=== PATIENT | male | born 1940 | race Caucasian/White ===

== ENCOUNTER 2016-10-13 10:54 | Inpatient (IN) | payer OTHER ==
[~2016-10-13] VITALS: Ht 172.7 cm; Wt 106.2 kg
[2016-10-13] MEDS ORDERED: CLOP1TAB15 PO (11:22)
[2016-10-13] MEDS ORDERED: OXGN (11:22)
[2016-10-13] MEDS ORDERED: UMEC1AER PO (11:22)
[2016-10-13] MEDS ORDERED: AMLO2.5T PO (11:22)
[2016-10-13] MEDS ORDERED: INS/25 PO (11:22)
[2016-10-13] MEDS ORDERED: ASPI81TA28 PO (11:22)
[2016-10-13] MEDS ORDERED: IPRA1AER2 INH (11:22)
[2016-10-13] MEDS ORDERED: ISOSPOW2 PO (11:22)
[2016-10-13] MEDS ORDERED: NTRGSL/4 UT (11:22)
[2016-10-13] MEDS ORDERED: FLUT0.15 (11:22)
[2016-10-13] MEDS ORDERED: METO25TA56 PO (11:22)
[2016-10-13] MEDS ORDERED: ASCA500 PO (11:22)
[2016-10-13] MEDS ORDERED: PANT40TA PO (11:22)
[2016-10-13] MEDS ORDERED: FRS/40 PO (11:22)
[2016-10-13] MEDS ORDERED: GLIM1TAB2 PO (11:22)
[2016-10-13] MEDS ORDERED: IPRASOL4 INH (11:22)
[2016-10-13] MEDS ORDERED: ONDANSETRON INJ 2 MG/ML 2 ML VIAL IV STA (11:44)
[2016-10-13] MEDS ORDERED: SODIUM CHLORIDE 0.9% 1000ML 1,000 ML IV STA (11:44)
[2016-10-13] MEDS ORDERED: MoRPHine SULFATE 4 MG/ML 1 ML CARP\\VIAL IV PRN (11:45)
--- NOTE | 2016-10-13 11:57 | EMERGENCY ROOM VISIT NOTE ---
History Report prepared by Rimma: Ivan Álvarez Under the Supervision of: Dr. Ayaan Finley D.O. First contact with patient: 11:38 Chief Complaint: ABDOMINAL PAIN Stated Complaint: STOMACH/CHEST PAINS Nursing Triage Summary: Patient states has been vomitting all night and has abdominal pain. states patient has had abdominal pain for the past month. Patient has hx of colon ca with resection in 2013. Patient states was having issues with constipation, took miralax and dulcolax with success. Patient states has not had BM in 2 days. History of Present Illness The patient is a 76 year old male who presents to the Emergency Room with complaints of persistent abdominal pain that started around a month ago. Last night, he had multiple episodes of vomiting and was nauseous all night. He notes that his abdomen has been feeling bigger than usual. Per the patient's , the patient has also not had an appetite for a couple days. The patient went to his primary care physician's office last week, and had an x-ray and blood tests done. The patient was deemed to perhaps have been constipated, so he was given Miralax and Dulcolax, which has been successful. He was supposed to see a pulp press tender today, but the patient could not wait until the appointment because the pain was so bad. He denies any fevers, chills, chest pain, or groin swelling. He has a history of colon cancer, colon resection, COPD , open heart surgery twice, and stent placement. He has not had any chemotherapy or radiation. He does not drink alcohol or smoke. He still has his gallbladder and appendix. Source of History: patient Onset: A month ago Position: abdomen Timing: other (persistent) Associated Symptoms: + nausea, + vomiting, No chest pain, No chills, No fevers Note: Associated symptoms: Denies groin swelling. Review of Systems See HPI for pertinent positives & negatives. A total of 10 systems reviewed and were otherwise negative. Past Medical & Surgical Medical Problems: (1) CAD (coronary artery disease) (2) Colon cancer (3) Colon cancer (4) COPD (chronic obstructive pulmonary disease) (5) COPD (chronic obstructive pulmonary disease) (6) GERD (gastroesophageal reflux disease) (7) Heart disease (8) HTN (hypertension) Surgical Problems: (1) History of colon resection (2) History of esophagogastroduodenoscopy (EGD) (3) History of partial colectomy (4) S/P CABG x 3 (5) Stented coronary artery Family History Family history omitted secondary to advanced age. Social History Smoking Status: Never Smoker Alcohol Use: none Marital Status: Occupation Status: retired Current/Historical Medications Scheduled Amlodipine (Norvasc), 2.5 MG PO DAILY Ascorbic Acid (Vitamin C), 500 MG PO DAILY Aspirin (Aspirin Ec), 81 MG PO DAILY Clopidogrel (Plavix), 75 MG PO DAILY Eplerenone (Inspra), 25 MG PO DAILY Fluticasone Propionate (Nasal) (Flonase Allergy Relief), 2 SPRAYS NA HS Furosemide (Lasix), 40 MG PO BID Glimepiride (Glimepiride), 1 MG PO DAILY Ipratropium-Albuterol (Combivent Respimat), 1 PUFFS INH QID Isosorbide Mononitrate (Imdur Ext Rel), 1.5 TAB PO DAILY Metoprolol Tartrate (Lopressor) (Lopressor), 25 MG PO BID Nitroglycerin (Nitrostat), 0.4 MG UT PRN Oxygen (Oxygen), 2 LITERS NA PRN Pantoprazole (Protonix), 40 MG PO DAILY Umeclidinium-Vilanterol (Anoro Ellipta 62.5-25 Mcg/INH), 1 PUFF PO DAILY Scheduled PRN Ipratropium-Albuterol (Duoneb), 1 TREATMENT INH Q6 PRN for Cough Allergies Coded Allergies: Atorvastatin (Unverified Allergy, Unknown, UNKNOWN, 10/13/16) Levofloxacin (Unverified Allergy, Unknown, UNKNOWN, 10/13/16) Simvastatin (Unverified Allergy, Unknown, UNKNOWN, 10/13/16) Physical Exam Vital Signs Date Time Temp Pulse Resp B/P Pulse Ox O2 Delivery O2 Flow Rate FiO2 10/13/16 12:52 70 10/13/16 12:50 71 22 140/67 90 Nasal Cannula 2.0 10/13/16 10:57 36.4 75 18 130/78 90 Room Air Physical Exam GENERAL: Patient is awake, alert, somewhat anxious appearing and uncomfortable. EYES: The conjunctivae are clear. The pupils are round and reactive. EARS, NOSE, MOUTH AND THROAT: The nose is without any evidence of any deformity. Mucous membranes are dry. NECK: The neck is nontender and supple. RESPIRATORY: Lung sounds are diminished throughout with scattered rhonchi. No tachypnea or conversation dyspnea noted. CARDIOVASCULAR: Regular rate and rhythm noted there no murmurs rubs or gallops normal S1 normal S2 GASTROINTESTINAL: Abdomen is moderately distended and diffusely tender. Significant tenderness in left upper and left lower quadrant. MUSCULOSKELETAL/EXTREMITIES: There is no evidence of gross deformity full range of motion is noted in the hips and shoulders SKIN: Pedal edema noted bilaterally. NEUROLOGIC: Patient is awake alert and oriented x3. Medical Decision & Procedures ER Provider Diagnostic Interpretation: Radiology results as stated below per my review and radiologist interpretation: CHEST ONE VIEW PORTABLE CLINICAL HISTORY: Pain radiating to the abdomen COMPARISON STUDY: No previous studies for comparison. FINDINGS: There are postsurgical changes of midline sternotomy. The heart is mildly enlarged. There is mild bibasilar atelectasis. There is no lobar consolidation. There are no pleural effusions.[ IMPRESSION: Mild cardiomegaly. No evidence of lobar consolidation. No evidence of free intraperitoneal air. Electronically signed by: Jose Guadalupe Sahffer M.D. 10/13/2016 12:20 PM Dictated Date/Time: 10/13/2016 12:[address] SCAN OF THE ABDOMEN AND PELVIS WITHOUT CONTRAST CLINICAL HISTORY: Mid abdominal pain and vomiting. COMPARISON STUDY: No previous studies for comparison. TECHNIQUE: CT scan of the abdomen and pelvis was performed from the lung bases to the proximal femurs. Images are reviewed in the axial, sagittal, and coronal planes. IV contrast was not administered for this examination. CT DOSE: 1055.29 mGy.cm FINDINGS: Lower chest: There is respiratory motion artifact. There are mild basilar atelectatic changes. Liver: The unenhanced liver is normal in size, contour, and attenuation. There is no intrahepatic biliary ductal dilatation. Gallbladder: There are multiple gallbladder calculi present. Spleen: Normal in size and attenuation. Pancreas: Unremarkable. Adrenal glands: There is a 3 cm right adrenal myelolipoma Kidneys: The unenhanced kidneys are normal in size without hydronephrosis. There is no contour deforming renal mass lesion. No renal calculi are identified. Bowel: There are postsurgical changes present within the sigmoid. There is marked gastric distention. There is no small bowel dilatation. The findings are suggestive of a gastric outlet obstruction. A duodenal/distal antral lesion cannot be excluded. GI consultation is recommended. There is no evidence of acute diverticulitis. There is no evidence of acute appendicitis. Peritoneum: There is scant ascites. There is no free air. There is nodular infiltration of the omentum with scattered small peritoneal nodules. Carcinomatosis is the diagnosis of exclusion. An inflammatory peritonitis could appear similar. Vasculature: There is a 3.3 cm infrarenal abdominal aortic aneurysm. Adenopathy: None. Pelvic viscera: The bladder, and pelvic viscera are unremarkable. Skeletal structures: No lytic or blastic lesions are visualized. There is a grade 1 spondylolisthesis of L5 on S1. IMPRESSION: 1. Nodular infiltration of the omentum with scattered peritoneal nodules. Abdominal carcinomatosis is a diagnosis of exclusion. An inflammatory peritonitis while in the differential is statistically less likely. 2. Scant ascites 3. Marked gastric dilatation. The findings are indicative of a gastric outlet obstruction. GI consultation is recommended. 4. Cholelithiasis. 5. 3 cm right adrenal myelolipoma 6. 3.3 cm infrarenal abdominal aortic aneurysm Electronically signed by: Jose Guadalupe Shaffer M.D. 10/13/2016 1:50 PM Dictated Date/Time: 10/13/2016 1:38 PM Laboratory Results Test 10/13/16 11:15 10/13/16 12:08 10/13/16 12:14 Immature Granulocyte % (Auto) 0.3 % White Blood Count 13.04 K/uL (4.8-10.8) Red Blood Count 5.50 M/uL (4.7-6.1) Hemoglobin 16.1 g/dL (14.0-18.0) Hematocrit 49.0 % (42-52) Mean Corpuscular Volume 89.1 fL (80-100) Mean Corpuscular Hemoglobin 29.3 pg (25-34) Mean Corpuscular Hemoglobin Concent 32.9 g/dl (32-36) Platelet Count 308 K/uL (130-400) Mean Platelet Volume 10.5 fL (7.4-10.4) Neutrophils (%) (Auto) 76.4 % Lymphocytes (%) (Auto) 14.0 % Monocytes (%) (Auto) 8.5 % Eosinophils (%) (Auto) 0.5 % Basophils (%) (Auto) 0.3 % Neutrophils # (Auto) 9.96 K/uL (1.4-6.5) Lymphocytes # (Auto) 1.83 K/uL (1.2-3.4) Monocytes # (Auto) 1.11 K/uL (0.11-0.59) Eosinophils # (Auto) 0.06 K/uL (0-0.5) Basophils # (Auto) 0.04 K/uL (0-0.2) Immature Granulocyte # (Auto) 0.04 K/uL (0.00-0.02) Prothrombin Time 11.5 SECONDS (9.0-12.0) Prothromb Time International Ratio 1.1 (0.9-1.1) Activated Partial Thromboplast Time 25.7 SECONDS (21.0-31.0) Partial Thromboplastin Ratio 1.0 Total Bilirubin 0.8 mg/dl (0.2-1) Direct Bilirubin 0.2 mg/dl (0-0.2) Aspartate Amino Transf (AST/SGOT) 12 U/L (15-37) Alanine Aminotransferase (ALT/SGPT) 14 U/L (12-78) Alkaline Phosphatase 82 U/L (45-117) Total Creatine Kinase 67 U/L (39-308) Creatine Kinase MB < 0.5 ng/ml (0.5-3.6) Creatine Kinase MB Ratio (0-3.0) Troponin I < 0.015 ng/ml (0-0.045) Total Protein 7.7 gm/dl (6.4-8.2) Albumin 3.9 gm/dl (3.4-5.0) Lipase 250 U/L (73-393) Bedside Hemoglobin 16.3 g/dl (14.0-18.0) Bedside Hematocrit 48 % (42-52) Bedside Sodium 139 mEq/L (135-144) Bedside Potassium 3.3 mEq/L (3.3-5.0) Bedside Chloride 85 mEq/L (101-112) Bedside Total CO2 > 40 mEq/l (24-31) Bedside Blood Urea Nitrogen 25 mg/dl (7-18) Bedside Creatinine 1.4 mg/dl (0.6-1.3) Bedside Glucose (other) 160 mg/dl (70-99) Bedside Ionized Calcium (Delmar) 1.03 mmol/l (1.12-1.32) Bedside Lactic Acid Venous 1.61 mmol/L (0.90-1.70) Laboratory results per my review. Medications Administered Medications (Trade) Dose Ordered Sig/Kristine Route Start Time Stop Time Status Last Admin Dose Admin Sodium Chloride (Nss 1000ml) 1,000 ml @ 999 mls/hr Q1H1M STAT IV 10/13/16 11:44 10/13/16 12:44 DC 10/13/16 12:44 999 MLS/HR Ondansetron HCl (Zofran Inj) 4 mg NOW STAT IV 10/13/16 11:44 10/13/16 11:46 DC 10/13/16 12:44 4 MG Morphine Sulfate 4 mg 4 mg Q15M PRN IV 10/13/16 11:45 10/13/16 17:06 DC 10/13/16 12:45 4 MG Pantoprazole Sodium/Syringe (Protonix Inj/ Syringe) 10 ml @ 5 mls/min NOW ONCE IV 10/13/16 13:45 10/13/16 13:46 DC 10/13/16 13:56 5 MLS/MIN Famotidine (Pepcid 20mg/100 ml) 20 mg ONE STAT IV 10/13/16 13:40 10/13/16 13:41 DC 10/13/16 13:55 20 MG ECG Indication: abdominal pain Rate (beats per minute): 75 Rhythm: normal sinus Findings: RBBB, no ectopy Comparison ECG Date: no prior available ED Course 1141: The patient was evaluated in room B9. A complete history and physical examination were performed. 1144: Ordered Zofran Inj 4 mg IV, NSS 1000 ml @ 999 mls/hr IV. 1145: Ordered Morphine Sulfate Inj 4 mg IV PRN. 1340: Ordered Pepcid 20mg/100 ml 20 mg IV. 1345: Ordered Pantoprazole Sodium 40 mg/Syrine 10 ml @ 5 mls/min IV. 1406: Upon reevaluation, the patient is resting comfortably. I discussed results and treatment plan with him. He verbalizes agreement and understanding. He will be evaluated for further treatment. 1411: I discussed the patient with Mary Nguyen - she will evaluate the patient for further treatment. 1425: I discussed the patient with Dr. Marissa Nguyen Gastroenterology. Medical Decision Differential diagnosis: Etiologies such as appendicitis, diverticulitis, PUD, biliary pathology, UTI, pancreatitis, obstruction, mesenteric ischemia, aortic pathology, infections, inflammatory bowel disease, renal colic, as well as others were entertained. Nursing notes reviewed. The patient is a 76-year-old male who presented to the emergency department for an evaluation of abdominal pain. The patient has been noticing slowly worsening abdominal pain over the last 3-4 weeks. His pain became much worse over the last few days. He does have a scheduled appointment with a pulp press tender today however his pain became severe and he presented to the emergency department today. His abdominal exam was consistent with significant distention as well as upper abdominal tenderness. He had nausea and vomiting symptoms. He was treated with IV fluids IV pain medicine and IV antiemetics. His CAT scan revealed significant gastric outlet obstruction. The patient had an NG tube placed which did significantly improve his symptoms. I discussed the patient's laboratory and radiographic studies with him. I also discussed his case with the on-call pulp press tender as well as the on-call [facility] hospitalist group. They've agreed to evaluate the patient in the emergency department for further management and disposition. Consults Time Called: 1409 Consulting Physician: Mary Nguyen Returned Call: [phone] I discussed the patient with Mary Nguyen - she will evaluate the patient for further treatment. Additional Consults: Time Called: 1410 Consulted Physician: Dr. Marissa Nguyen Gastroenterology Returned Call: [phone] Additional Comments: I discussed the patient with Dr. Marissa Nguyen Gastroenterology. Impression Primary Impression: Gastric outlet obstruction Additional Impressions: Nausea & vomiting Acute kidney injury Dehydration Scribe Attestation The scribe's documentation has been prepared under my direction and personally reviewed by me in its entirety. I confirm that the note above accurately reflects all work, treatment, procedures, and medical decision making performed by me. Departure Information Dispostion Being Evaluated By Hospitalist Referrals No Doctor, Assigned (PCP) Patient Instructions My [facility] Problem Qualifiers Additional Impressions: Nausea & vomiting Vomiting type: unspecified Vomiting Intractability: unspecified Qualified Codes: R11.2 - Nausea with vomiting, unspecified
[2016-10-13 12:10] LABS: INR 1.1 (0.9-1.1); PROTHROMBIN TIME (PATIENT) 11.5 SECONDS (9.0-12.0)
[2016-10-13 12:13] LABS: BASO % 0.3 %; BASO ABS # 0.04 K/uL (0-0.2); COMPLETE YES; EOS % 0.5 %; IG% 0.3 %; LYMPH ABS # 1.83 K/uL (1.2-3.4); MEAN CELL VOLUME 89.1 fL (80-100); MEAN CORPUSCULAR HEMOGLOBIN 29.3 pg (25-34); MEAN CORPUSCULAR HGB CONC 32.9 g/dl (32-36); MEAN PLATELET VOLUME 10.5 fL (7.4-10.4); MONO % 8.5 %; NEUT % 76.4 %; PLATELET COUNT 308 K/uL (130-400); WHITE BLOOD COUNT 13.04 K/uL (4.8-10.8)
--- NOTE | 2016-10-13 12:21 | DIAGNOSTIC IMAGING REPORT ---
CHEST ONE VIEW PORTABLE CLINICAL HISTORY: Pain radiating to the abdomen COMPARISON STUDY: No previous studies for comparison. FINDINGS: There are postsurgical changes of midline sternotomy. The heart is mildly enlarged. There is mild bibasilar atelectasis. There is no lobar consolidation. There are no pleural effusions.[ IMPRESSION: Mild cardiomegaly. No evidence of lobar consolidation. No evidence of free intraperitoneal air. Electronically signed by: Jose Guadalupe Shaffer M.D. 10/13/2016 12:20 PM Dictated Date/Time: 10/13/2016 12:19 PM
[2016-10-13 12:23] LABS: ALT/SGPT 14 U/L (12-78); AST/SGOT 12 U/L (15-37); BLOOD UREA NITROGEN 24 mg/dl (7-18); BUN/CREATININE RATIO 13.2 (10-20); CALCIUM 9.5 mg/dl (8.5-10.1); CARBON DIOXIDE 44 mmol/L (21-32); CHLORIDE 90 mmol/L (98-107); GLUCOSE 153 mg/dl (70-99); POTASSIUM 3.4 mmol/L (3.5-5.1); SODIUM 141 mmol/L (136-145)
[2016-10-13 12:26] LABS: ISTAT CARBON DIOXIDE > 40 mEq/l (24-31); ISTAT CHLORIDE 85 mEq/L (101-112); ISTAT CREATININE 1.4 mg/dl (0.6-1.3); ISTAT HEMATOCRIT 48 % (42-52); ISTAT HEMOGLOBIN 16.3 g/dl (14.0-18.0); ISTAT IONIZED CALCIUM 1.03 mmol/l (1.12-1.32); ISTAT SODIUM 139 mEq/L (135-144)
[2016-10-13 12:37] LABS: ALKALINE PHOSPHATASE 82 U/L (45-117)
[2016-10-13] MEDS ORDERED: FAMOTIDINE 20MG/102 ML D5W IV STA (13:40)
[2016-10-13] MEDS ORDERED: PANTOprazole INJ 40 MG in SYRINGE 0 ML IV ONE (13:45)
--- NOTE | 2016-10-13 13:51 | DIAGNOSTIC IMAGING REPORT ---
CT SCAN OF THE ABDOMEN AND PELVIS WITHOUT CONTRAST CLINICAL HISTORY: Mid abdominal pain and vomiting. COMPARISON STUDY: No previous studies for comparison. TECHNIQUE: CT scan of the abdomen and pelvis was performed from the lung bases to the proximal femurs. Images are reviewed in the axial, sagittal, and coronal planes. IV contrast was not administered for this examination. CT DOSE: 1055.29 mGy.cm FINDINGS: Lower chest: There is respiratory motion artifact. There are mild basilar atelectatic changes. Liver: The unenhanced liver is normal in size, contour, and attenuation. There is no intrahepatic biliary ductal dilatation. Gallbladder: There are multiple gallbladder calculi present. Spleen: Normal in size and attenuation. Pancreas: Unremarkable. Adrenal glands: There is a 3 cm right adrenal myelolipoma Kidneys: The unenhanced kidneys are normal in size without hydronephrosis. There is no contour deforming renal mass lesion. No renal calculi are identified. Bowel: There are postsurgical changes present within the sigmoid. There is marked gastric distention. There is no small bowel dilatation. The findings are suggestive of a gastric outlet obstruction. A duodenal/distal antral lesion cannot be excluded. GI consultation is recommended. There is no evidence of acute diverticulitis. There is no evidence of acute appendicitis. Peritoneum: There is scant ascites. There is no free air. There is nodular infiltration of the omentum with scattered small peritoneal nodules. Carcinomatosis is the diagnosis of exclusion. An inflammatory peritonitis could appear similar. Vasculature: There is a 3.3 cm infrarenal abdominal aortic aneurysm. Adenopathy: None. Pelvic viscera: The bladder, and pelvic viscera are unremarkable. Skeletal structures: No lytic or blastic lesions are visualized. There is a grade 1 spondylolisthesis of L5 on S1. IMPRESSION: 1. Nodular infiltration of the omentum with scattered peritoneal nodules. Abdominal carcinomatosis is a diagnosis of exclusion. An inflammatory peritonitis while in the differential is statistically less likely. 2. Scant ascites 3. Marked gastric dilatation. The findings are indicative of a gastric outlet obstruction. GI consultation is recommended. 4. Cholelithiasis. 5. 3 cm right adrenal myelolipoma 6. 3.3 cm infrarenal abdominal aortic aneurysm Electronically signed by: Jose Guadalupe Shaffer M.D. 10/13/2016 1:50 PM Dictated Date/Time: 10/13/2016 1:38 PM
[2016-10-13] MEDS ORDERED: ISOS60TA2 PO (14:55)
[2016-10-13] MEDS ORDERED: NITROGLYCERIN 0.4 MG SL PER TAB CHARGE UT SCH (15:00)
[2016-10-13] MEDS ORDERED: ACETAMINOPHEN 325 MG TAB PO PRN (15:00)
--- NOTE | 2016-10-13 15:58 | History and Physical ---
History & Physical Date & Time of Service: Oct 13, 2016 at 15:58 Chief Complaint: Stomach/Chest Pains Primary Care Physician: Mildred Quiroga M.D. History of Present Illness Source: patient, partner, clinic records, hospital records Patient seen and examined. 76 year old male with PMHx of CAD s/p CABG, Stents, COPD, PAF, CKd stage 3, GERD, h/o Colon CA and H/o CVA presents to the ED complaining of stomach pain x 1 month. Patient reports for about a month he has had generalized sharp 10/10 abdominal pain. He states sometimes has pain radiating into his chest and reports a known history of chronic postprandial angina. He saw his PCP last week and KUB showed stool in the colon. Patient took laxatives which initially helped with his symptoms but he states over the last 2-3 days he started to have vomiting as well and his abdomen became distended. He reports his last BM was two days ago. He denies fevers, chills, URI symptoms, chest pain out of the ordinary, SOB, hematemesis, diarrhea, dysuria, calf pain and edema. In the ED VS were stable, he had mild leukocytosis , crea was bumped. CT A/P showed nodular infiltrates in the omentum and possible gastric outlet obstruction. NG tube was placed and drained >1L of brown gastric contents. GI was consulted and will likely scope patient tomorrow. He will be admitted for further workup and treatment. Past Medical/Surgical History Medical Problems: (1) CAD (coronary artery disease) Status: Chronic (2) Colon cancer Status: Resolved (3) Colon cancer Status: Chronic (4) COPD (chronic obstructive pulmonary disease) Status: Chronic (5) COPD (chronic obstructive pulmonary disease) Status: Chronic (6) GERD (gastroesophageal reflux disease) Status: Chronic (7) Heart disease Status: Resolved (8) HTN (hypertension) Status: Chronic Surgical Problems: (1) History of colon resection Status: Resolved (2) History of esophagogastroduodenoscopy (EGD) Status: Chronic (3) History of partial colectomy Status: Chronic (4) S/P CABG x 3 Status: Chronic (5) Stented coronary artery Status: Chronic Family History FH: heart disease Hypertension Social History Smoking Status: Never Smoker Alcohol Use: none Marital Status: Housing status: lives alone Occupational Status: retired Allergies Coded Allergies: Atorvastatin (Unverified Allergy, Unknown, UNKNOWN, 10/13/16) Levofloxacin (Unverified Allergy, Unknown, UNKNOWN, 10/13/16) Simvastatin (Unverified Allergy, Unknown, UNKNOWN, 10/13/16) Home Medications Scheduled Amlodipine (Norvasc), 2.5 MG PO DAILY Ascorbic Acid (Vitamin C), 500 MG PO DAILY Aspirin (Aspirin Ec), 81 MG PO DAILY Clopidogrel (Plavix), 75 MG PO DAILY Eplerenone (Inspra), 25 MG PO DAILY Fluticasone Propionate (Nasal) (Flonase Allergy Relief), 2 SPRAYS NA HS Furosemide (Lasix), 40 MG PO BID Glimepiride (Glimepiride), 1 MG PO DAILY Ipratropium-Albuterol (Combivent Respimat), 1 PUFFS INH QID Isosorbide Mononitrate (Imdur Ext Rel), 1.5 TAB PO DAILY Metoprolol Tartrate (Lopressor) (Lopressor), 25 MG PO BID Nitroglycerin (Nitrostat), 0.4 MG UT PRN Oxygen (Oxygen), 2 LITERS NA PRN Pantoprazole (Protonix), 40 MG PO DAILY Umeclidinium-Vilanterol (Anoro Ellipta 62.5-25 Mcg/INH), 1 PUFF PO DAILY Scheduled PRN Ipratropium-Albuterol (Duoneb), 1 TREATMENT INH Q6 PRN for Cough Review of Systems See above for pertinent positives & negatives. A total of 10 systems reviewed and were otherwise negative. Physical Exam Vital Signs Date Time Temp Pulse Resp B/P Pulse Ox O2 Delivery O2 Flow Rate FiO2 10/13/16 15:43 67 18 117/67 92 10/13/16 12:52 70 10/13/16 12:50 71 22 140/67 90 Nasal Cannula 2.0 10/13/16 10:57 36.4 75 18 130/78 90 Room Air General Appearance: + pertinent finding (Pleasant Wd/WN 76 year old male lying in bed in NAD with friend at bedside ) Head: normocephalic, atraumatic Eyes: PERRL, EOMI, sclerae normal ENT: pharynx normal, + pertinent finding (ng tube in place, blood from nares ) Neck: supple, thyroid normal Respiratory/Chest: chest non-tender, lungs clear (trace wheezes), normal breath sounds, no respiratory distress, no accessory muscle use Cardiovascular: regular rate, rhythm, no edema, no gallop, no JVD, no murmur, normal peripheral pulses Abdomen/GI: + pertinent finding (hypoactive BS, distended, mild tenderness ) Back: normal inspection, no muscle spasm Extremities/Musculoskelatal: no calf tenderness, normal capillary refill, no pedal edema Neurologic/Psych: alert, oriented x 3, + pertinent finding (no focal deficits noted on gross exam ) Skin: normal color, warm/dry, no rash Lymphatic: no adenopathy Diagnostics Laboratory Results Results Past 24 Hours Test 10/13/16 11:15 10/13/16 12:08 10/13/16 12:14 Range/Units White Blood Count 13.04 4.8-10.8 K/uL Red Blood Count 5.50 4.7-6.1 M/uL Hemoglobin 16.1 14.0-18.0 g/dL Hematocrit 49.0 42-52 % Mean Corpuscular Volume 89.1 80-100 fL Mean Corpuscular Hemoglobin 29.3 25-34 pg Mean Corpuscular Hemoglobin Concent 32.9 32-36 g/dl Platelet Count 308 130-400 K/uL Mean Platelet Volume 10.5 7.4-10.4 fL Neutrophils (%) (Auto) 76.4 % Lymphocytes (%) (Auto) 14.0 % Monocytes (%) (Auto) 8.5 % Eosinophils (%) (Auto) 0.5 % Basophils (%) (Auto) 0.3 % Neutrophils # (Auto) 9.96 1.4-6.5 K/uL Lymphocytes # (Auto) 1.83 1.2-3.4 K/uL Monocytes # (Auto) 1.11 0.11-0.59 K/uL Eosinophils # (Auto) 0.06 0-0.5 K/uL Basophils # (Auto) 0.04 0-0.2 K/uL RDW Standard Deviation 43.5 36.4-46.3 fL RDW Coefficient of Variation 13.2 11.5-14.5 % Immature Granulocyte % (Auto) 0.3 % Immature Granulocyte # (Auto) 0.04 0.00-0.02 K/uL Prothrombin Time 11.5 9.0-12.0 SECONDS Prothromb Time International Ratio 1.1 0.9-1.1 Activated Partial Thromboplast Time 25.7 21.0-31.0 SECONDS Partial Thromboplastin Ratio 1.0 Sodium Level 141 136-145 mmol/L Potassium Level 3.4 3.5-5.1 mmol/L Chloride Level 90 98-107 mmol/L Carbon Dioxide Level 44 21-32 mmol/L Anion Gap 7.0 17.0 16-25 mmol/L Blood Urea Nitrogen 24 7-18 mg/dl Creatinine 1.80 0.60-1.40 mg/dl Estimated GFR () 40.9 Estimated GFR (Non- 35.3 BUN/Creatinine Ratio 13.2 10-20 Random Glucose 153 70-99 mg/dl Calcium Level 9.5 8.5-10.1 mg/dl Magnesium Level 3.5 1.8-2.4 mg/dl Total Bilirubin 0.8 0.2-1 mg/dl Direct Bilirubin 0.2 0-0.2 mg/dl Aspartate Amino Transf (AST/SGOT) 12 15-37 U/L Alanine Aminotransferase (ALT/SGPT) 14 12-78 U/L Alkaline Phosphatase 82 45-117 U/L Total Creatine Kinase 67 39-308 U/L Creatine Kinase MB < 0.5 0.5-3.6 ng/ml Creatine Kinase MB Ratio 0-3.0 Troponin I < 0.015 0-0.045 ng/ml Total Protein 7.7 6.4-8.2 gm/dl Albumin 3.9 3.4-5.0 gm/dl Lipase 250 73-393 U/L Bedside Hemoglobin 16.3 14.0-18.0 g/dl Bedside Hematocrit 48 42-52 % Bedside Sodium 139 135-144 mEq/L Bedside Potassium 3.3 3.3-5.0 mEq/L Bedside Chloride 85 101-112 mEq/L Bedside Total CO2 > 40 24-31 mEq/l Bedside Blood Urea Nitrogen 25 7-18 mg/dl Bedside Creatinine 1.4 0.6-1.3 mg/dl Bedside Glucose (other) 160 70-99 mg/dl Bedside Ionized Calcium (Delmar) 1.03 1.12-1.32 mmol/l Bedside Lactic Acid Venous 1.61 0.90-1.70 mmol/L Diagnostic Radiology CT A/P Per radiologist read: IMPRESSION: 1. Nodular infiltration of the omentum with scattered peritoneal nodules. Abdominal carcinomatosis is a diagnosis of exclusion. An inflammatory peritonitis while in the differential is statistically less likely. 2. Scant ascites 3. Marked gastric dilatation. The findings are indicative of a gastric outlet obstruction. GI consultation is recommended. 4. Cholelithiasis. 5. 3 cm right adrenal myelolipoma 6. 3.3 cm infrarenal abdominal aortic aneurysm CXR Per radiologist read: IMPRESSION: Mild cardiomegaly. No evidence of lobar consolidation. No evidence of free intraperitoneal air. EKG NSR 75 BPM, LAD, RBBB QTc 504 Impression Assessment and Plan 76 year old male with h/o colon ca presents to the ED complaining of abdominal pain, nausea, vomiting. Likely Gastric outlet obstruction ABDOMINAL PAIN - GASTRIC OUTLET OBSTRUCTION -admit to med/surg -CT scan with gastric dilation/outlet obstruction, and nodular infiltrated of omentum -NG tube placed with >1L output -GI consult placed input appreciated, patient will have EGD in AM -keep npo, continue NG tube -gentle IVF hydration -prn morphine, and zofran -CBC, PRP, Mg in AM ACUTE RENAL FAILURE ON CKD STAGE 3 -crea 1.8 from baseline of 1.3 -likely prerenal -continue IVFs -hold diuretics, avoid nephrotoxins -repeat PRP in AM HYPOKALEMIA -replace -follow daily CAD -s/p CABG, Stents -follows with Prashant Gay -stable -Continue ASA, Plavix, BB imdur, COPD -stable -continue home inhalers, oxygen PAROXYSMAL AFIB -per chart -In NSR -on dual antiplatelet therapy not on anticoagulation -continue BB DM2 -hold glipizide -SSI coverage -check A1c H/O COLON CA -s/p resection GERD -continue PPI DVT PROPHYLAXIS: Sq heparin CODE STATUS: FULL CODE DISPO:In my clinical judgment this beneficiary meets acute admission criteria, established by [facility], that includes being hospitalized through two midnights. Patient seen in collaboration with Dr. Frankel Attending Addendum Pt was seen and examined. 76 year old male with PMHx of CAD s/p CABG, Stents, COPD, PAF, CKd stage 3, GERD, h/o Colon CA and H/o CVA presents to the ED complaining of abdominal pain for about 1 month. Pt said that pain grade is 10/ 10, sharp and radiated to his chest area. He saw his PCP last week and he had a KUB that showed stool in the colon. He had some laxatives that helped with his symptoms but for 2 days he has been having vomiting. Hiss last BM was 2 days ago. Denies any chest pain, palpitation, dizziness. General- No acute distress Head- atraumatic Eyes- PERRL, EOMI ENT- oropharynx clear, NGT in placed Neck- supple, no JVD Lungs- +mild wheezing Heart- regular rhythm; no murmur Abdomen- normal bowel sounds, nontender Extremities- no calf tenderness Neuro- alert, oriented, PERRL, EOMI; no facial palsy Skin- warm & dry A/p ABDOMINAL PAIN - GASTRIC OUTLET OBSTRUCTION -CT Abd showed Nodular infiltration of the omentum with scattered peritoneal nodules. Marked gastric dilatation. The findings are indicative of a gastric outlet obstruction. -GI consulted, possible EGD in am -keep npo, continue NG tube -gentle IVF hydration - Continue monitor EKG, imaging, Lab reviewed by me Please refer to Charleen's PA documentation for other problems Lisa Frankel MD VTE Prophylaxis VTE Risk Assessment Done? Y/N: Yes Risk Level: Moderate
--- NOTE | 2016-10-13 16:09 | Gastrointestinal Consultation ---
Gastrointestinal Consultation Date of Consultation: Oct 13, 2016 Attending Physician: Dr. Quiroga Consulting Physician: Dr. Ann Reason for Consultation: Abdominal and chest pain History of Present Illness Patient is a 76 year old male with a hx of CAD, S/P CABG (1983, 1986), and stenting (2003), COPD, DM-2, on Plavix. A-fib, CKD-3, HTN and hyperlipidemia. He also carries a hx of colon cancer S/P colon resection (16 inches removed) 2013. He experienced CVA during the hospitalization for the colon resection. Today, he presented to the ED today for abdomen and chest pain. He has had intermittent RLQ and epigastric pain for the past month. This had been progressively worsening. At baseline he has post prandial angina (If he eats and then is physically active after eating). Last evening the pain worsened. He was unable to sleep and he vomited about 5-6 times. Although he had an OP GI evaluation scheduled this afternoon. However, at 10AM this morning , he decided that he felt so poorly that he needed emergency care and his female dog daycare provider brought him to the ED. He has not eaten for 2-3 days due to poor appetite and the pain. He did not have any hematemesis. On arrival in the ED, imaging was suggestive of gastric outlet obstruction. HE has mild leukocytosis at 13. An NG was placed with about a liter of bloody liquid drainage. He is having bleeding from his nares, so this may be the source of blood. Hb on arrival: 16.1. Past Medical/Surgical History Medical Problems: (1) Acute kidney injury Status: Acute (2) COPD (chronic obstructive pulmonary disease) Status: Chronic (3) Dehydration Status: Acute (4) Gastric outlet obstruction Status: Acute (5) Nausea & vomiting Status: Acute Past Medical History: 1. HTN 2. [place] 3. COPD 4. Paroxysmal A-fib 5. CKD-3 6. Hyperlipidemia 7. CVA 8. Colon cancer s/p resection Past Surgical History: 1. CABG 1983, 1985 2. Colon resection 2013 Social History Smoking Status: Never Smoker Alcohol Use: none Marital Status: , in relationship (lives with a dog daycare provider (30yrs)) Occupation Status: retired Allergies Coded Allergies: Atorvastatin (Unverified Allergy, Unknown, UNKNOWN, 10/13/16) Levofloxacin (Unverified Allergy, Unknown, UNKNOWN, 10/13/16) Simvastatin (Unverified Allergy, Unknown, UNKNOWN, 10/13/16) Current Medications Home Meds and Scripts Medications Dose Route/Sig Max Daily Dose Days Date Category Imdur Ext Rel (Isosorbide Mononitrate) 60 Mg Tab 1.5 Tab PO DAILY 30 10/13/16 Reported Protonix (Pantoprazole Sodium) 40 Mg Tab 40 Mg PO DAILY 10/13/16 Reported Vitamin C (Ascorbic Acid) 500 Mg Tab 500 Mg PO DAILY 10/13/16 Reported Oxygen Gas 2 Liters NA PRN 10/13/16 Reported Aspirin Ec (Aspirin) 81 Mg Tab 81 Mg PO DAILY 10/13/16 Reported Flonase Allergy Relief (Fluticasone Propionate (Nasal)) 50 Mcg/Act Spr 2 Sprays NA HS 10/13/16 Reported Norvasc (Amlodipine Besylate) 2.5 Mg Tab 2.5 Mg PO DAILY 10/13/16 Reported Duoneb (Ipratropium-Albuterol) 3 Ml Nebu 1 Treatment INH Q6 PRN 10/13/16 Reported Lopressor (Metoprolol Tartrate) 25 Mg Tab 25 Mg PO BID 10/13/16 Reported Glimepiride 1 Mg Tab 1 Mg PO DAILY 10/13/16 Reported Nitrostat (Nitroglycerin) 0.4 Mg Tab 0.4 Mg UT PRN 10/13/16 Reported Anoro Ellipta 62.5-25 Mcg/INH (Umeclidinium-Vilanterol) 1 Aer Aer 1 Puff PO DAILY 10/13/16 Reported Combivent Respimat (Ipratropium-Albuterol) 1 Aer Aer 1 Puffs INH QID 10/13/16 Reported Plavix (Clopidogrel Bisulfate) 75 Mg Tab 75 Mg PO DAILY 10/13/16 Reported Inspra (Eplerenone) 25 Mg Tab 25 Mg PO DAILY 10/13/16 Reported Lasix (Furosemide) 40 Mg Tab 40 Mg PO BID 10/13/16 Reported Review of Systems Constitutional: No chills, No fever, No sweats, No weakness, No weight loss Eyes: No eye pain, No redness ENT: No pain on swallowing, No sore throat, No trouble swallowing Respiratory: No cough, No dyspnea on exertion, No shortness of breath, No wheezing Cardiac: No chest pain, No edema, No palpitations Abdomen: + constipation, + nausea, + pain, + see HPI, + vomiting Neuro: No balance problems, No memory loss, No numbness/tingling, No vertigo, No weakness Psych: No anxiety, No depression symptoms, No insomnia Heme: No abnormal bleeding/bruising, No night sweats Endo: No excessive thirst, No excessive urination Skin: No itch, No jaundice, No new/changing skin lesions, No rash Physical Exam Date Time Temp Pulse Resp B/P Pulse Ox O2 Delivery O2 Flow Rate FiO2 10/13/16 15:43 67 18 117/67 92 10/13/16 12:52 70 10/13/16 12:50 71 22 140/67 90 Nasal Cannula 2.0 10/13/16 10:57 36.4 75 18 130/78 90 Room Air General Appearance: no apparent distress Eyes: normal inspection, EOMI Neck: supple, no adenopathy, thyroid normal, no JVD Respiratory/Chest: chest non-tender, normal breath sounds, no accessory muscle use, + crackles, + wheezing (mild to moderate, throughout) Cardiovascular: regular rate, rhythm, no JVD, no murmur Abdomen: normal bowel sounds, non tender, soft, no organomegaly Extremities: normal inspection, no pedal edema, normal capillary refill Neurologic/Psych: alert, normal mood/affect, oriented x 3 Skin: normal color, no jaundice, warm/dry, no rash Laboratory Results Last 24 Hours Test 10/13/16 11:15 10/13/16 12:08 10/13/16 12:14 White Blood Count 13.04 K/uL Red Blood Count 5.50 M/uL Hemoglobin 16.1 g/dL Hematocrit 49.0 % Mean Corpuscular Volume 89.1 fL Mean Corpuscular Hemoglobin 29.3 pg Mean Corpuscular Hemoglobin Concent 32.9 g/dl Platelet Count 308 K/uL Mean Platelet Volume 10.5 fL Neutrophils (%) (Auto) 76.4 % Lymphocytes (%) (Auto) 14.0 % Monocytes (%) (Auto) 8.5 % Eosinophils (%) (Auto) 0.5 % Basophils (%) (Auto) 0.3 % Neutrophils # (Auto) 9.96 K/uL Lymphocytes # (Auto) 1.83 K/uL Monocytes # (Auto) 1.11 K/uL Eosinophils # (Auto) 0.06 K/uL Basophils # (Auto) 0.04 K/uL RDW Standard Deviation 43.5 fL RDW Coefficient of Variation 13.2 % Immature Granulocyte % (Auto) 0.3 % Immature Granulocyte # (Auto) 0.04 K/uL Prothrombin Time 11.5 SECONDS Prothromb Time International Ratio 1.1 Activated Partial Thromboplast Time 25.7 SECONDS Partial Thromboplastin Ratio 1.0 Sodium Level 141 mmol/L Potassium Level 3.4 mmol/L Chloride Level 90 mmol/L Carbon Dioxide Level 44 mmol/L Anion Gap 7.0 mmol/L 17.0 mmol/L Blood Urea Nitrogen 24 mg/dl Creatinine 1.80 mg/dl Estimated GFR () 40.9 Estimated GFR (Non- 35.3 BUN/Creatinine Ratio 13.2 Random Glucose 153 mg/dl Calcium Level 9.5 mg/dl Magnesium Level 3.5 mg/dl Total Bilirubin 0.8 mg/dl Direct Bilirubin 0.2 mg/dl Aspartate Amino Transf (AST/SGOT) 12 U/L Alanine Aminotransferase (ALT/SGPT) 14 U/L Alkaline Phosphatase 82 U/L Total Creatine Kinase 67 U/L Creatine Kinase MB < 0.5 ng/ml Creatine Kinase MB Ratio Troponin I < 0.015 ng/ml Total Protein 7.7 gm/dl Albumin 3.9 gm/dl Lipase 250 U/L Bedside Hemoglobin 16.3 g/dl Bedside Hematocrit 48 % Bedside Sodium 139 mEq/L Bedside Potassium 3.3 mEq/L Bedside Chloride 85 mEq/L Bedside Total CO2 > 40 mEq/l Bedside Blood Urea Nitrogen 25 mg/dl Bedside Creatinine 1.4 mg/dl Bedside Glucose (other) 160 mg/dl Bedside Ionized Calcium (Delmar) 1.03 mmol/l Bedside Lactic Acid Venous 1.61 mmol/L CT abd/pelvis without contrast 10/13/16: Nodular infiltration of the omentum with scattered peritoneal nodules. Abdominal carcinomatosis is a diagnosis of exclusion. An inflammatory peritonitis while in the differential is statistically less likely. 2. Scant ascites 3. Marked gastric dilatation. The findings are indicative of a gastric outlet obstruction. GI consultation is recommended. 4. Cholelithiasis. 5. 3 cm right adrenal myelolipoma 6. 3.3 cm infrarenal abdominal aortic aneurysm Impression Patient is a 76 year old male patient with nausea, vomiting, abdominal pain, CT suggestive of carcinomatosis and gastric outlet obstruction. GI cancers need to be ruled out. Plan 1. NPO, continue NG. 2. KUB early tomorrow morning to r/o fluid filled stomach. 3. EGD tomorrow. 4. Further recommendations to follow EGD. ATTESTATION: I have performed a history and physical examination of this patient and reviewed the electronic record. Specifically, on physical examination there is mild abdominal tenderness. I have discussed the case with JOSH Mejias. The above note reflects my findings, conclusions, and recommendations. Ayaan Ann MD
[2016-10-13] MEDS ORDERED: GLUCOSE 40% GEL 15 GM TUBE PO PRN (16:30)
[2016-10-13] MEDS ORDERED: GLUCOSE 10 TABS/TUBE PO PRN (16:30)
[2016-10-13] MEDS ORDERED: DEXTROSE 50% 50 ML SYR IV PRN (16:30)
[2016-10-13] MEDS ORDERED: GLUCAGON FOR INJ 1 MG VIAL SQ PRN (16:30)
[2016-10-13] MEDS ORDERED: INSULIN ASPART 100 UNITS/ML 3 ML PEN SC SCH (17:00)
[2016-10-13] MEDS: SODIUM CHLORIDE 0.9% 1000ML 1,000 ML IV SCH (17:02)
[2016-10-13 17:06] VITALS: BP 136/75; PULSE 64; TEMP 36.9; O2SAT 96; Ht 172.7 cm; Wt 106.2 kg
[2016-10-13] MEDS: IPRATROPIUM BROMIDE/ALBUTEROL respimat INH INH SCH ×2 (19:00→21:59)
[2016-10-13] MEDS ORDERED: NURSING DECISION MEDICATION ORDER SCH (19:15)
[2016-10-13 19:29] VITALS: BP 119/73; PULSE 68; O2SAT 93
[2016-10-13] MEDS: FLUTICASONE PROPIONATE NA SPR 16 GM BTL SCH (21:58)
[2016-10-13] MEDS: METOPROLOL TARTRATE 25 MG TAB NG SCH (21:58)
[2016-10-13] MEDS: HEPARIN SOD 5000 UNIT/0.5 ML CARP SQ SCH (21:59)
[2016-10-13 23:29] LABS: URINE APPEARANCE CLEAR (CLEAR); URINE BILIRUBIN NEG (NEG); URINE COLOR YELLOW; URINE NITRITE NEG (NEG); URINE PH 8.5 (4.5-7.5); URINE SPECIFIC GRAVITY 1.021 (1.000-1.030); UROBILINOGEN NEG (NEG)
[2016-10-13 23:36] LABS: MANUAL MICROSCOPIC REQUIRED? NO; REVIEW REQ? NO
[2016-10-13 23:56] VITALS: BP 104/63; PULSE 63; TEMP 36.7; O2SAT 91
[2016-10-14] VITALS (11 sets, daily range): BP systolic 110–124; BP diastolic 60–71; PULSE 64–77; TEMP 36.2–37.1; O2SAT 90–99
[2016-10-14] MEDS: SODIUM CHLORIDE 0.9% 1000ML 1,000 ML IV SCH ×2 (04:07→15:42)
[2016-10-14] MEDS: HEPARIN SOD 5000 UNIT/0.5 ML CARP SQ SCH ×3 (05:43→21:42)
[2016-10-14] MEDS: ALBUT/IPRATROP 3MG/0.5MG NEB 3 ML VIAL INH PRN ×2 (05:57→12:40)
[2016-10-14] MEDS: INSULIN ASPART 100 UNITS/ML 3 ML PEN SC SCH ×4 (05:58→18:00)
[2016-10-14 06:11] LABS: HEMATOCRIT 46.9 % (42-52); MEAN CELL VOLUME 92.7 fL (80-100); MEAN CORPUSCULAR HEMOGLOBIN 29.4 pg (25-34); MEAN CORPUSCULAR HGB CONC 31.8 g/dl (32-36); MEAN PLATELET VOLUME 10.6 fL (7.4-10.4); PLATELET COUNT 267 K/uL (130-400); RED BLOOD COUNT 5.06 M/uL (4.7-6.1); WHITE BLOOD COUNT 13.32 K/uL (4.8-10.8)
[2016-10-14 06:23] LABS: ESTIMATED AVERAGE GLUCOSE 140 mg/dl; HA1C FLAG Normal (Normal)
[2016-10-14 06:46] LABS: BUN/CREATININE RATIO 17.4 (10-20); CALCIUM 8.5 mg/dl (8.5-10.1); CREATININE 1.4 mg/dl (0.60-1.40); MAGNESIUM 2.9 mg/dl (1.8-2.4); POTASSIUM 3.1 mmol/L (3.5-5.1)
[2016-10-14] MEDS: IPRATROPIUM BROMIDE/ALBUTEROL respimat INH INH SCH ×4 (07:27→20:48)
[2016-10-14] MEDS: METOPROLOL TARTRATE 25 MG TAB NG SCH (07:28)
[2016-10-14] MEDS ORDERED: PNEUMOCOCCAL ADMINISTRATION CHARGE ONE (08:00)
[2016-10-14] MEDS ORDERED: PNEUMOCOCCAL POLYSACCHARIDES 25 MCG/0.5 ML VIAL/SYR IM. ONE (08:00)
[2016-10-14] MEDS ORDERED: INFLUENZA ADMINISTRATION CHARGE ONE (08:00)
[2016-10-14] MEDS ORDERED: INFLUENZA VIRUS QUAD VACCINE 0.5 ML SYR IM. ONE (08:00)
--- NOTE | 2016-10-14 08:37 | DIAGNOSTIC IMAGING REPORT ---
KUB CLINICAL HISTORY: gastric outlet obstruction; r/o dilated esophagus and stomac COMPARISON STUDY: No previous studies for comparison. FINDINGS: Nasogastric tube at the gastroesophageal junction. No evidence of bowel or gastric distention. Nonobstructive bowel pattern. IMPRESSION: Nasogastric tube is at the gastroesophageal junction. Nonobstructive nondistended bowel pattern Electronically signed by: Prashant Rodriguez M.D. 10/14/2016 8:35 AM Dictated Date/Time: 10/14/2016 8:34 AM
[2016-10-14] MEDS ORDERED: ISOSORBIDE MONONITRATE 30 MG TABCR PO SCH (09:00)
[2016-10-14] MEDS ORDERED: ASPIRIN 81 MG CHEW NG SCH (09:00)
[2016-10-14] MEDS ORDERED: CLOPIDOGREL BISULFATE 75 MG TAB NG SCH (09:00)
[2016-10-14] MEDS ORDERED: PANTOprazole INJ 40 MG in SYRINGE 0 ML IV SCH (11:00)
[2016-10-14] MEDS ORDERED: PROPOFOL IV EMULSION 10 MG/ML 20 ML VIAL IV ONE ×2 (11:11→12:02)
[2016-10-14] MEDS ORDERED: LIDOCAINE HCL 2% 2 ML VIAL (20MG/ML) ONE ×2 (11:11→12:02)
[2016-10-14] MEDS ORDERED: ONDANSETRON INJ 2 MG/ML 2 ML VIAL ONE (12:02)
[2016-10-14] MEDS ORDERED: FENTANYL CITRATE INJ 50 MCG/1 ML 2 ML VIAL ONE (12:02)
[2016-10-14] MEDS ORDERED: ROCURONIUM BROMIDE 10 MG/ML 5 ML VIAL ONE (12:02)
[2016-10-14] MEDS ORDERED: SUCCINYLCHOLINE 100MG/5ML SYR IV ONE (12:02)
--- NOTE | 2016-10-14 12:52 | History & Physical Bridge Note ---
H&P Re-Evaluation Bridge Note: I have examined the patient, reviewed the History & Physical and in the interval since the performance of the History & Physical I have noted the following changes of clinical significance: Bilateral wheezing, otherwise no changes noted
[2016-10-14] MEDS ORDERED: GLYCOPYRROLATE INJ 0.2 MG/ML VIAL ONE (13:22)
[2016-10-14] MEDS ORDERED: NEOSTIGMINE METHYLSULFATE 5 MG/5 ML SYR ONE (13:22)
--- NOTE | 2016-10-14 13:58 | GI REPORT ---
Procedure Date: 10/14/2016 12:39 PM Procedure: Upper GI endoscopy Indications: Epigastric abdominal pain, gastric outlet obstruction Medicines: General Anesthesia Complications: No immediate complications. Estimated blood loss: None. Estimated Blood Loss: Estimated blood loss: none. Procedure: Pre-Anesthesia Assessment: - Prior to the procedure, a History and Physical was performed, and patient medications, allergies and sensitivities were reviewed. The patient's tolerance of previous anesthesia was reviewed. - ASA Grade Assessment: IV - A patient with severe systemic disease that is a constant threat to life. After obtaining informed consent, the endoscope was passed under direct vision. Throughout the procedure, the patient's blood pressure, pulse, and oxygen saturations were monitored continuously. The scope was introduced through the mouth, and advanced to the third part of duodenum. The upper GI endoscopy was accomplished without difficulty. The patient tolerated the procedure well. Findings: Severe esophagitis with confluent ulceration 1/3 to 1/2 circufirential found in the middle and lower third of the esophagus. A large amount of food (residue) was found in the entire examined stomach. Diffuse moderate inflammation characterized by congestion (edema) and erythema was found in the entire examined stomach. Biopsies were taken with a cold forceps for Helicobacter pylori testing. A benign-appearing, intrinsic severe stenosis was found at the pylorus. A TTS dilator was passed through the scope. Dilation with a 12 mm pyloric balloon dilator was performed. Biopsies were taken with a cold forceps for histology. Localized severe inflammation characterized by stenosis, congestion (edema) and erythema was found in the duodenal bulb. The 2nd part of the duodenum and 3rd part of the duodenum were normal. Impression: - Severe esophagitis. - A large amount of food (residue) in the stomach. - Gastritis. Biopsied. 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 Dilated to 12 mm. Biopsied. - Duodenitis. - Normal 2nd part of the duodenum and 3rd part of the duodenum. Recommendation: - Return patient to hospital [facility] for ongoing care. Ayaan Ann M.D. Ayaan Ann MD 10/14/2016 1:58:42 PM This report has been signed electronically. Note Initiated On: 10/14/2016 12:39 PM I attest to the content of the Intraoperative Record and orders documented therein, exceptions below
[2016-10-14] MEDS ORDERED: EpHEDrine SULFATE INJ 50 MG/ML AMP IV PRN (14:30)
[2016-10-14] MEDS ORDERED: ATROPINE SULFATE 0.1 MG/ML 5ML SYR IV PRN (14:30)
[2016-10-14] MEDS ORDERED: ONDANSETRON INJ 2 MG/ML 2 ML VIAL IV PRN (14:30)
[2016-10-14] MEDS ORDERED: PANTOprazole INJ 80 MG in DEXTROSE 5% 100ML IV SCH (15:00)
--- NOTE | 2016-10-14 15:18 | Anesthesiology Progress Note ---
Anesthesia Post Op Note Date & Time Oct 14, 2016 at 15:15 Vital Signs Pain Intensity: 0 Vital Signs Past 12 Hours Date Time Temp Pulse Resp B/P Pulse Ox O2 Delivery O2 Flow Rate FiO2 10/14/16 15:05 64 19 128/62 93 Nasal Cannula 4 10/14/16 14:55 63 24 130/60 93 Nasal Cannula 4 10/14/16 14:45 63 22 134/64 95 Nasal Cannula 4 10/14/16 14:35 63 20 135/78 96 Mask 6 10/14/16 14:25 62 23 140/69 100 Mask 6 10/14/16 14:15 63 22 144/75 100 Non-Rebreather 15 10/14/16 14:07 36.2 64 20 148/71 100 Non-Rebreather 15 10/14/16 12:30 74 16 93 Nasal Cannula 3.0 10/14/16 11:17 37.1 67 20 134/63 98 Nasal Cannula 2 10/14/16 07:20 Nasal Cannula 3.0 10/14/16 07:05 37.0 64 16 117/66 95 Nasal Cannula 3.0 10/14/16 05:58 68 16 92 Nasal Cannula 3.0 Notes Mental Status: alert / awake / arousable, participated in evaluation Pt Amnestic to Procedure: Yes Nausea / Vomiting: adequately controlled Pain: adequately controlled Airway Patency, RR, SpO2: stable & adequate BP & HR: stable & adequate Hydration State: stable & adequate Anesthetic Complications: no major complications apparent Patient is much more awake and conversant. Answering questions appropriately. Plan for continuous pulse oximetry on the floor. VSS. No complications.
[2016-10-14] MEDS: PANTOprazole INJ 40 MG in DEXTROSE 5% 100ML IV SCH ×2 (15:42→20:48)
--- NOTE | 2016-10-14 20:11 | Progress Note ---
Internal Med Progress Note Date of Service: Oct 14, 2016. Provider Documentation: SUBJECTIVE: returned form EGD still groggy , mentions that abdominal pain has improved having sore throat feels mouth very dry -wants to have Ice chips and sips multiple family members present at bedside OBJECTIVE: Vital Signs-as noted below Exam: General-sleepy , waking up form anesthesia ENT-dried blood on left nostril ( Had NG tube in earlier ) Lungs-diminished Heart-regular S1/S2 Abdomen-distended, soft, bowel sound active, minimum tenderness on deep palpation Extremities-no rash Neuro-no focal deficit Lab data as noted below. 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 - A large amount of food (residue) in the stomach. - Gastritis. Biopsied. 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 Dilated to 12 mm. Biopsied. - Duodenitis. - Normal 2nd part of the duodenum and 3rd part of the duodenum. -Family updated of above finding -need to have Pathology report available for definitive diagnosis -NG tube D/bryan post procedure ordered for ice chips and sips of water cont Bowel rest , iV fluid ACUTE RENAL FAILURE ON CKD STAGE 3 due to dehydration 2 to above cont -continue IVFs -hold diuretics, avoid nephrotoxins -repeat PRP in AM HYPOKALEMIA -replace -follow daily DM2 -hold glipizide -SSI coverage H/O COLON CA -s/p resection GERD -continue PPI DVT PROPHYLAXIS: Sq heparin CODE STATUS: FULL CODE DISPOSITION to be determined , D/w Family members -pt had prior Colectomy done for colon Ca at [facility] [place] . [place] for future procedure if needed wants pt to be transferred to [facility] D/w GI team for further plan in AM Vital Signs: Date Time Temp Pulse Resp B/P Pulse Ox O2 Delivery O2 Flow Rate FiO2 10/15/16 14:23 75 16 92 Nasal Cannula 4.0 10/15/16 08:00 Nasal Cannula 4.0 Humidified Oxygen 10/15/16 07:44 37.0 66 16 114/67 96 Nasal Cannula 3.0 Humidified Oxygen 10/15/16 03:23 36.9 69 16 118/65 92 Nasal Cannula 4.0 Humidified Air 10/14/16 23:16 37.1 64 16 123/67 93 Nasal Cannula 4.0 10/14/16 20:30 37.0 70 16 119/60 93 Nasal Cannula 4.0 10/14/16 19:30 Nasal Cannula 4.0 Humidified Oxygen 10/14/16 18:35 36.2 77 18 123/69 99 Nasal Cannula 4.0 10/14/16 17:35 36.6 70 16 124/71 94 Nasal Cannula 4.0 10/14/16 16:35 36.5 65 16 122/67 95 Nasal Cannula 4.0 10/14/16 16:05 36.8 77 16 110/62 99 Nasal Cannula 4.0 10/14/16 15:56 90 Nasal Cannula 4.0 10/14/16 15:35 36.9 65 14 112/63 91 Nasal Cannula 4.0 10/14/16 15:35 91 Nasal Cannula 4.0 10/14/16 15:15 36.2 60 21 122/69 93 Nasal Cannula 4 Lab Results: Results Past 24 Hours Test 10/14/16 18:04 10/15/16 00:01 10/15/16 06:02 10/15/16 11:20 Range/Units Bedside Glucose 103 104 104 105 70-99 mg/dl Test 10/15/16 15:03 10/15/16 15:07 10/15/16 15:08 Range/Units
[2016-10-14] MEDS: FLUTICASONE PROPIONATE NA SPR 16 GM BTL SCH (20:48)
[2016-10-15] VITALS (7 sets, daily range): BP systolic 114–131; BP diastolic 65–68; PULSE 66–78; TEMP 36.5–37.1; O2SAT 3–97
[2016-10-15] MEDS: PANTOprazole INJ 40 MG in DEXTROSE 5% 100ML IV SCH ×5 (01:49→20:59)
[2016-10-15] MEDS: SODIUM CHLORIDE 0.9% 1000ML 1,000 ML IV SCH ×2 (04:28→15:56)
[2016-10-15] MEDS: HEPARIN SOD 5000 UNIT/0.5 ML CARP SQ SCH ×3 (05:58→21:00)
[2016-10-15] MEDS: INSULIN ASPART 100 UNITS/ML 3 ML PEN SC SCH ×4 (06:00→18:00)
[2016-10-15] MEDS: IPRATROPIUM BROMIDE/ALBUTEROL respimat INH INH SCH ×4 (09:09→20:20)
--- NOTE | 2016-10-15 09:35 | Gastroenterology Progress Note ---
Progress Note Date of Service: Oct 15, 2016 Subjective Pt evaluation today including: conversation w/ patient, physical exam, chart review, lab review, review of studies, review of inpatient medication list Mr. Leonardo is a 76 yr old male admitted for nausea/vomiting. EGD yesterday with esophageal ulceration duodenitis with pyloric stricture. Pt feels well this morning and denies abdominal pain .NG out. NPO except ice chips. Review of Systems Constitutional: No fever Respiratory: No cough Cardiac: No chest pain Abdomen: + see HPI, No diarrhea, No nausea, No pain, No vomiting Male : No dysuria Neuro: No memory loss Psych: No depression symptoms Heme: No abnormal bleeding/bruising Endo: + fatigue Skin: No jaundice, No rash Medications Current Inpatient Medications Medications (Trade) Dose Ordered Sig/Kristine Route Start Time Stop Time Status Last Admin Dose Admin Ondansetron HCl 4 mg 4 mg Q6H PRN IV 10/13/16 15:00 11/12/16 14:59 Sodium Chloride (Nss 1000ml) 1,000 ml @ 80 mls/hr [id number] IV 10/13/16 15:00 11/12/16 14:59 10/15/16 04:28 80 MLS/HR Morphine Sulfate (MoRPHine SULFATE INJ) 2 mg Q3H PRN IV 10/13/16 15:00 10/27/16 14:59 Fluticasone Propionate (Flonase Nasal [place]) 2 sprays HS NA 10/13/16 21:00 11/12/16 20:59 10/14/16 20:48 2 SPRAYS Albuterol/ Ipratropium (Combivent Respimat Inh) 1 puffs QID INH 10/13/16 17:00 11/12/16 16:59 10/15/16 09:09 1 PUFFS Albuterol/ Ipratropium (Duoneb) 3 ml Q6 PRN INH 10/13/16 15:00 11/12/16 14:59 10/14/16 12:40 3 ML Isosorbide Mononitrate (Imdur Ext Rel Tab) 90 mg DAILY PO 10/14/16 09:00 11/13/16 08:59 Future Hold 10/14/16 07:28 90 MG Nitroglycerin (Nitrostat Tab) 0.4 mg PRN UT 10/13/16 15:00 11/12/16 14:59 Miscellaneous Information (Order Awaiting Action) 1 ea QS N/A 10/13/16 16:00 11/12/16 15:59 Heparin Sodium (Porcine) (Heparin Sq 5000 Unit/0.5ml) 5,000 unit Q8 SQ 10/13/16 22:00 11/12/16 21:59 10/15/16 05:58 5,000 UNIT Glucose (Glucose 40% Gel) 15-30 GRAMS 15 GRAMS... UD PRN PO 10/13/16 16:30 11/12/16 16:29 Glucose (Glucose Chew Tab) 4-8 Tablets 4 Tabl... UD PRN PO 10/13/16 16:30 11/12/16 16:29 Dextrose (Dextrose 50% 50ML Syringe) 25-50ML OF 50% DW IV FOR... UD PRN IV 10/13/16 16:30 11/12/16 16:29 Glucagon (Glucagon Inj) 1 mg UD PRN SQ 10/13/16 16:30 11/12/16 16:29 Insulin Aspart SLIDING SCALE If C... Q6 SC 10/14/16 00:00 11/13/16 00:00 Pantoprazole Sodium/Dextrose (Protonix Inj/D5 100ml) 100 ml @ 20 mls/hr Q5H IV 10/14/16 15:15 11/13/16 15:14 10/15/16 06:26 20 MLS/HR Objective Vital Signs Date Time Temp Pulse Resp B/P Pulse Ox O2 Delivery O2 Flow Rate FiO2 10/15/16 07:44 37.0 66 16 114/67 96 Nasal Cannula 3.0 Humidified Oxygen 10/15/16 03:23 36.9 69 16 118/65 92 Nasal Cannula 4.0 Humidified Air 10/14/16 23:16 37.1 64 16 123/67 93 Nasal Cannula 4.0 10/14/16 20:30 37.0 70 16 119/60 93 Nasal Cannula 4.0 10/14/16 19:30 Nasal Cannula 4.0 Humidified Oxygen 10/14/16 18:35 36.2 77 18 123/69 99 Nasal Cannula 4.0 10/14/16 17:35 36.6 70 16 124/71 94 Nasal Cannula 4.0 10/14/16 16:35 36.5 65 16 122/67 95 Nasal Cannula 4.0 10/14/16 16:05 36.8 77 16 110/62 99 Nasal Cannula 4.0 10/14/16 15:56 90 Nasal Cannula 4.0 10/14/16 15:35 36.9 65 14 112/63 91 Nasal Cannula 4.0 10/14/16 15:35 91 Nasal Cannula 4.0 10/14/16 15:15 36.2 60 21 122/69 93 Nasal Cannula 4 10/14/16 15:05 64 19 128/62 93 Nasal Cannula 4 10/14/16 14:55 63 24 130/60 93 Nasal Cannula 4 10/14/16 14:45 63 22 134/64 95 Nasal Cannula 4 10/14/16 14:35 63 20 135/78 96 Mask 6 10/14/16 14:25 62 23 140/69 100 Mask 6 10/14/16 14:15 63 22 144/75 100 Non-Rebreather 15 10/14/16 14:07 36.2 64 20 148/71 100 Non-Rebreather 15 10/14/16 12:30 74 16 93 Nasal Cannula 3.0 10/14/16 11:17 37.1 67 20 134/63 98 Nasal Cannula 2 Physical Exam General Appearance: no apparent distress Neck: no JVD Respiratory/Chest: + crackles (few at bases), + wheezing (scattered) Cardiovascular: regular rate, rhythm, no JVD, no murmur Abdomen: non tender, soft Extremities: no pedal edema Neurologic/Psych: alert, normal mood/affect, oriented x 3 Skin: no jaundice, no rash Laboratory Results Last 24 Hours Test 10/14/16 14:16 10/14/16 18:04 10/15/16 00:01 10/15/16 06:02 Bedside Glucose 107 mg/dl 103 mg/dl 104 mg/dl 104 mg/dl Assessment and Plan Mr. Leonardo is a 76 yr old male with narrowing of the esophagus from severe esophagitis/ulcer and pylori stenosis from severe duodenitis. Plan: 1. (continue) NPO or just clear liquids. 2. Consider TPN. 3. (continue) PPI drip. 4. Plan for repeat EGD next week for further dilation of the stenosis. 5. Discussed with radiology who will perform an IR guided bx of one of the omental nodes tomorrow. ATTESTATION: I have performed a history and physical examination of this patient and reviewed the electronic record. Specifically, on physical examination there is minimal abdominal tenderness. I have discussed the case with JOSH Mejias. The above note reflects my findings, conclusions, and recommendations. I have reviewed his CT with radiologists. 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 We will try to obtain tissue with a CT guided needle biopsy. We also await pathology results from EGD. If there is no definitive diagnosis, would repeat EGD on Wednesday. If the gastric outlet obstruction is malignant, he will need a stent or surgical gastrojejunostomy. Ayaan Ann MD
[2016-10-15] MEDS: ALBUT/IPRATROP 3MG/0.5MG NEB 3 ML VIAL INH PRN (14:22)
[2016-10-15] MEDS ORDERED: TPN/PPN CONSULT PHARMACY PRN (15:13)
[2016-10-15 15:31] LABS: HEMATOCRIT 43.2 % (42-52); MEAN CELL VOLUME 90.4 fL (80-100); MEAN CORPUSCULAR HEMOGLOBIN 29.5 pg (25-34); MEAN CORPUSCULAR HGB CONC 32.6 g/dl (32-36); MEAN PLATELET VOLUME 10.2 fL (7.4-10.4); PLATELET COUNT 251 K/uL (130-400); RED BLOOD COUNT 4.78 M/uL (4.7-6.1); WHITE BLOOD COUNT 12.19 K/uL (4.8-10.8)
[2016-10-15 15:58] LABS: BUN/CREATININE RATIO 16.6 (10-20); CALCIUM 7.9 mg/dl (8.5-10.1); CREATININE 1.1 mg/dl (0.60-1.40); POTASSIUM 3.4 mmol/L (3.5-5.1)
[2016-10-15] MEDS: ALBUT/IPRATROP 3MG/0.5MG NEB 3 ML VIAL INH SCH (20:16)
[2016-10-15] MEDS: FLUTICASONE PROPIONATE NA SPR 16 GM BTL SCH (20:59)
--- NOTE | 2016-10-15 21:54 | Progress Note ---
Internal Med Progress Note Date of Service: Oct 15, 2016. Provider Documentation: SUBJECTIVE: returned form EGD still groggy , mentions that abdominal pain has improved having sore throat feels mouth very dry -wants to have Ice chips and sips multiple family members present at bedside OBJECTIVE: Vital Signs-as noted below Exam: General-sleepy , waking up form anesthesia ENT-dried blood on left nostril ( Had NG tube in earlier ) Lungs-diminished Heart-regular S1/S2 Abdomen-distended, soft, bowel sound active, minimum tenderness on deep palpation Extremities-no rash Neuro-no focal deficit Lab data as noted below. 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 - A large amount of food (residue) in the stomach. - Gastritis. Biopsied. 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 Dilated to 12 mm. Biopsied. - Duodenitis. - Normal 2nd part of the duodenum and 3rd part of the duodenum. -Family updated of above finding -need to have Pathology report available for definitive diagnosis -NG tube D/bryan post procedure ordered for ice chips and sips of water cont Bowel rest , iV fluid ACUTE RENAL FAILURE ON CKD STAGE 3 due to dehydration 2 to above cont -continue IVFs -hold diuretics, avoid nephrotoxins -repeat PRP in AM HYPOKALEMIA -replace -follow daily DM2 -hold glipizide -SSI coverage H/O COLON CA -s/p resection GERD -continue PPI DVT PROPHYLAXIS: Sq heparin CODE STATUS: FULL CODE DISPOSITION to be determined , D/w Family members -pt had prior Colectomy done for colon Ca at [facility] [place] . [place] for future procedure if needed wants pt to be transferred to [facility] D/w GI team for further plan in AM Vital Signs: Date Time Temp Pulse Resp B/P Pulse Ox O2 Delivery O2 Flow Rate FiO2 10/16/16 20:22 87 16 94 Nasal Cannula 3.0 10/16/16 15:45 Nasal Cannula 3.0 10/16/16 15:40 89 16 92 Nasal Cannula 3.0 10/16/16 15:15 36.4 79 16 120/74 91 Nasal Cannula 2.0 Humidified Oxygen 10/16/16 10:50 76 20 144/80 94 Nasal Cannula 3.0 Humidified Oxygen 10/16/16 08:30 96 Nasal Cannula 3.0 10/16/16 07:45 36.5 76 24 129/70 96 Nasal Cannula 3.0 10/16/16 07:40 Nasal Cannula 3.0 Humidified Oxygen 10/16/16 07:37 75 16 94 Nasal Cannula 3.0 10/16/16 00:05 Nasal Cannula 3.0 Humidified Oxygen 10/15/16 23:13 37.1 78 16 131/68 97 Nasal Cannula 3.0 Humidified Air Lab Results: Results Past 24 Hours Test 10/16/16 00:01 10/16/16 00:04 10/16/16 06:00 10/16/16 06:55 Range/Units Bedside Glucose 115 112 105 70-99 mg/dl White Blood Count 11.42 4.8-10.8 K/uL Red Blood Count 4.79 4.7-6.1 M/uL Hemoglobin 14.0 14.0-18.0 g/dL Hematocrit 43.0 42-52 % Mean Corpuscular Volume 89.8 80-100 fL Mean Corpuscular Hemoglobin 29.2 25-34 pg Mean Corpuscular Hemoglobin Concent 32.6 32-36 g/dl RDW Standard Deviation 42.8 36.4-46.3 fL RDW Coefficient of Variation 13.1 11.5-14.5 % Platelet Count 250 130-400 K/uL Mean Platelet Volume 10.7 7.4-10.4 fL Sodium Level 141 136-145 mmol/L Potassium Level 3.5 3.5-5.1 mmol/L Chloride Level 104 98-107 mmol/L Carbon Dioxide Level 27 21-32 mmol/L Anion Gap 10.0 3-11 mmol/L Blood Urea Nitrogen 16 7-18 mg/dl Creatinine 0.93 0.60-1.40 mg/dl Est Creatinine Clear Calc Drug Dose 78.9 ml/min Estimated GFR () 90.8 Estimated GFR (Non- 78.4 BUN/Creatinine Ratio 16.7 10-20 Random Glucose 97 70-99 mg/dl Calcium Level 8.3 8.5-10.1 mg/dl Phosphorus Level 2.5 2.5-4.9 mg/dl Magnesium Level 2.6 1.8-2.4 mg/dl Triglycerides Level 176 0-150 mg/dl Test 10/16/16 12:34 10/16/16 18:03 Range/Units Bedside Glucose 98 134 70-99 mg/dl
[2016-10-16] VITALS (8 sets, daily range): BP systolic 120–154; BP diastolic 70–80; PULSE 75–89; TEMP 36.4–36.7; O2SAT 91–96
[2016-10-16] MEDS: PANTOprazole INJ 40 MG in DEXTROSE 5% 100ML IV SCH ×5 (01:53→21:34)
[2016-10-16] MEDS: SODIUM CHLORIDE 0.9% 1000ML 1,000 ML IV SCH (04:40)
[2016-10-16] MEDS: HEPARIN SOD 5000 UNIT/0.5 ML CARP SQ SCH ×3 (05:52→21:30)
[2016-10-16] MEDS: INSULIN ASPART 100 UNITS/ML 3 ML PEN SC SCH ×4 (06:00→18:00)
[2016-10-16 07:33] LABS: MEAN CELL VOLUME 89.8 fL (80-100); MEAN CORPUSCULAR HEMOGLOBIN 29.2 pg (25-34); MEAN CORPUSCULAR HGB CONC 32.6 g/dl (32-36); MEAN PLATELET VOLUME 10.7 fL (7.4-10.4); PLATELET COUNT 250 K/uL (130-400); RED BLOOD COUNT 4.79 M/uL (4.7-6.1); WHITE BLOOD COUNT 11.42 K/uL (4.8-10.8)
[2016-10-16] MEDS: ALBUT/IPRATROP 3MG/0.5MG NEB 3 ML VIAL INH SCH ×4 (07:37→20:18)
[2016-10-16] MEDS: IPRATROPIUM BROMIDE/ALBUTEROL respimat INH INH SCH (07:37)
[2016-10-16 08:05] LABS: BUN/CREATININE RATIO 16.7 (10-20); CALCIUM 8.3 mg/dl (8.5-10.1); CREATININE 0.93 mg/dl (0.60-1.40); MAGNESIUM 2.6 mg/dl (1.8-2.4); POTASSIUM 3.5 mmol/L (3.5-5.1)
[2016-10-16 08:06] LABS: PHOSPHORUS 2.5 mg/dl (2.5-4.9)
--- NOTE | 2016-10-16 09:11 | DIAGNOSTIC IMAGING REPORT ---
KUB CLINICAL HISTORY: Gastric outlet obstruction COMPARISON STUDY: 10/12/2016 FINDINGS: There is no pathologic bowel dilatation. There is scattered stool within the colon. The previously identified nasogastric tube is no longer visualized IMPRESSION: No evidence of pathologic bowel dilatation. Electronically signed by: Jose Guadalupe Shaffer M.D. 10/16/2016 9:09 AM Dictated Date/Time: 10/16/2016 9:05 AM
[2016-10-16] MEDS ORDERED: NURSING VERBAL MED ORDER ONE (10:45)
--- NOTE | 2016-10-16 12:53 | DIAGNOSTIC IMAGING REPORT ---
CT-GUIDED FINE-NEEDLE ASPIRATION OF AN OMENTAL MASS CLINICAL HISTORY: OMENTAL NODULES DO BX PAJ PROCEDURE: Written informed consent was obtained. The patient was positioned supine on the CT table. Preliminary imaging of the right upper quadrant was performed to determine a safe needle injury site. 1% lidocaine was used for local anesthesia. A single pass using a 22-gauge x 9 cm Derrick needle was performed through the right upper quadrant omental masslike soft tissue abnormality. A single specimen was given to the on-site pathologist who determined adequate tissue for diagnosis. No immediate complications. IMPRESSION: Successful CT-guided fine-needle aspiration of a omental masslike soft tissue abnormality. Electronically signed by: Richard Curtis M.D. 10/16/2016 12:52 PM Dictated Date/Time: 10/16/2016 12:48 PM
--- NOTE | 2016-10-16 12:54 | DIAGNOSTIC IMAGING REPORT ---
CHEST ONE VIEW PORTABLE CLINICAL HISTORY: right arm picc placement COMPARISON STUDY: 10/13/2016 FINDINGS: There are postsurgical changes of midline sternotomy. The heart remains enlarged. There is a small right pleural effusion. There are bibasilar opacities right greater than left, likely atelectatic although an inflammatory process could appear similar. There is been interval placement right-sided PICC catheter. The tip projects over the expected atriocaval junction.[ IMPRESSION: The right-sided PICC catheter is positioned with its tip over the expected atriocaval junction Electronically signed by: Jose Guadalupe Shaffer M.D. 10/16/2016 12:53 PM Dictated Date/Time: 10/16/2016 12:51 PM
[2016-10-16] MEDS ORDERED: DEXTROSE 10% 1,000 ML IV PRN (13:24)
[2016-10-16] MEDS ORDERED: CUSTOM CENTRAL PN 1 BAG IV SCH (16:00)
--- NOTE | 2016-10-16 17:19 | Gastroenterology Progress Note ---
Progress Note Date of Service: Oct 16, 2016 Subjective Pt evaluation today including: conversation w/ patient, conversation w/ family , physical exam, chart review, lab review, review of studies, review of inpatient medication list Mr. Leonardo is a 76 yr old male admitted for nausea/vomiting. EGD yesterday with esophageal ulceration duodenitis with pyloric stricture. CT with concern for carcinomatosis. Pt feels well this morning but c/o hunger. TPN being arranged. Kept NPO due to pyloric stricture. PPI drip. Review of Systems Constitutional: No fever Respiratory: No cough Cardiac: No chest pain Abdomen: + nausea (resolved), + see HPI, No pain, No vomiting Male : No dysuria Neuro: No memory loss Psych: No depression symptoms Endo: No fatigue Skin: No rash Medications Current Inpatient Medications Medications (Trade) Dose Ordered Sig/Kristine Route Start Time Stop Time Status Last Admin Dose Admin Ondansetron HCl (Zofran Inj) 4 mg Q6H PRN IV 10/13/16 15:00 11/12/16 14:59 Morphine Sulfate (MoRPHine SULFATE INJ) 2 mg Q3H PRN IV 10/13/16 15:00 10/27/16 14:59 Fluticasone Propionate (Flonase Nasal [place]) 2 sprays HS NA 10/13/16 21:00 11/12/16 20:59 10/15/16 20:59 2 SPRAYS Albuterol/ Ipratropium (Duoneb) 3 ml Q6 PRN INH 10/13/16 15:00 11/12/16 14:59 10/15/16 14:22 3 ML Isosorbide Mononitrate (Imdur Ext Rel Tab) 90 mg DAILY PO 10/14/16 09:00 11/13/16 08:59 Future Hold 10/14/16 07:28 90 MG Nitroglycerin (Nitrostat Tab) 0.4 mg PRN UT 10/13/16 15:00 11/12/16 14:59 Miscellaneous Information (Order Awaiting Action) 1 ea QS N/A 10/13/16 16:00 11/12/16 15:59 Heparin Sodium (Porcine) (Heparin Sq 5000 Unit/0.5ml) 5,000 unit Q8 SQ 10/13/16 22:00 11/12/16 21:59 10/16/16 14:31 5,000 UNIT Glucose (Glucose 40% Gel) 15-30 GRAMS 15 GRAMS... UD PRN PO 10/13/16 16:30 11/12/16 16:29 Glucose (Glucose Chew Tab) 4-8 Tablets 4 Tabl... UD PRN PO 10/13/16 16:30 11/12/16 16:29 Dextrose (Dextrose 50% 50ML Syringe) 25-50ML OF 50% DW IV FOR... UD PRN IV 10/13/16 16:30 11/12/16 16:29 Glucagon (Glucagon Inj) 1 mg UD PRN SQ 10/13/16 16:30 11/12/16 16:29 Insulin Aspart SLIDING SCALE If C... Q6 SC 10/14/16 00:00 11/13/16 00:00 Pantoprazole Sodium/Dextrose (Protonix Inj/D5 100ml) 100 ml @ 20 mls/hr Q5H IV 10/14/16 15:15 11/13/16 15:14 10/16/16 16:53 20 MLS/HR Miscellaneous Information (Pharmacy Tpn/ Ppn Consult Active) 1 ea UD PRN N/A 10/15/16 15:13 11/14/16 15:12 Albuterol/ Ipratropium 3 ml 3 ml QIDR INH 10/15/16 16:00 11/14/16 15:59 10/16/16 16:01 3 ML Nutrition (Parenteral) 0 ml @ 0 mls/hr TODAY@1600 IV 10/16/16 16:00 10/17/16 15:59 10/16/16 16:53 0 MLS/HR Dextrose (D10w) 1,000 ml @ 0 mls/hr Q0M PRN IV 10/16/16 13:24 11/15/16 13:23 Objective Vital Signs Date Time Temp Pulse Resp B/P Pulse Ox O2 Delivery O2 Flow Rate FiO2 10/16/16 15:45 Nasal Cannula 3.0 10/16/16 15:40 89 16 92 Nasal Cannula 3.0 10/16/16 15:15 36.4 79 16 120/74 91 Nasal Cannula 2.0 Humidified Oxygen 10/16/16 10:50 76 20 144/80 94 Nasal Cannula 3.0 Humidified Oxygen 10/16/16 08:30 96 Nasal Cannula 3.0 10/16/16 07:45 36.5 76 24 129/70 96 Nasal Cannula 3.0 10/16/16 07:40 Nasal Cannula 3.0 Humidified Oxygen 10/16/16 07:37 75 16 94 Nasal Cannula 3.0 10/16/16 00:05 Nasal Cannula 3.0 Humidified Oxygen 10/15/16 23:13 37.1 78 16 131/68 97 Nasal Cannula 3.0 Humidified Air 10/15/16 20:16 78 16 93 Nasal Cannula 3.0 Physical Exam General Appearance: no apparent distress, + obese ENT: pharynx normal Neck: supple, thyroid normal, no JVD Respiratory/Chest: + crackles (few at bases), + wheezing Cardiovascular: no edema, no JVD, no murmur Abdomen: non tender, soft Extremities: no pedal edema Neurologic/Psych: alert, normal mood/affect, oriented x 3 Skin: normal color, no jaundice Laboratory Results Last 24 Hours Test 10/15/16 18:07 10/16/16 00:01 10/16/16 00:04 10/16/16 06:00 Bedside Glucose 90 mg/dl 115 mg/dl 112 mg/dl 105 mg/dl Test 10/16/16 06:55 10/16/16 12:34 White Blood Count 11.42 K/uL Red Blood Count 4.79 M/uL Hemoglobin 14.0 g/dL Hematocrit 43.0 % Mean Corpuscular Volume 89.8 fL Mean Corpuscular Hemoglobin 29.2 pg Mean Corpuscular Hemoglobin Concent 32.6 g/dl RDW Standard Deviation 42.8 fL RDW Coefficient of Variation 13.1 % Platelet Count 250 K/uL Mean Platelet Volume 10.7 fL Sodium Level 141 mmol/L Potassium Level 3.5 mmol/L Chloride Level 104 mmol/L Carbon Dioxide Level 27 mmol/L Anion Gap 10.0 mmol/L Blood Urea Nitrogen 16 mg/dl Creatinine 0.93 mg/dl Est Creatinine Clear Calc Drug Dose 78.9 ml/min Estimated GFR () 90.8 Estimated GFR (Non- 78.4 BUN/Creatinine Ratio 16.7 Random Glucose 97 mg/dl Calcium Level 8.3 mg/dl Phosphorus Level 2.5 mg/dl Magnesium Level 2.6 mg/dl Triglycerides Level 176 mg/dl Bedside Glucose 98 mg/dl Assessment and Plan Mr. Leonardo is a 76 yr old male with narrowing of the esophagus from severe esophagitis/ulcer and pylori stenosis from severe duodenitis. CT with suggestion of carcinomatosis. His gastric and duodenal bx are (-) for H Pylori and malignancy. IR guided bx of peritoneal nodules pending. Plan: 1. (Continue) ice chips only po. 2. Appreciate primary services arranging TPN. 3. (Continue) PPI drip. 4. Plan for repeat EGD Wednesday by Dr. Lim for dilation of the stenosis. 5. Awaiting path results on abdominal node biopsy. ATTESTATION: I have performed a history and physical examination of this patient and reviewed the electronic record. Specifically on physical examination abdomen is soft and non tender. I have discussed the case with JOSH Mejias. The above note reflects my findings, conclusions, and recommendations. Ayaan Ann MD
--- NOTE | 2016-10-16 21:09 | Progress Note ---
Internal Med Progress Note Date of Service: Oct 16, 2016. Provider Documentation: SUBJECTIVE: sitting up on chair feels much better abdominal pain has improved , no nausea able to pass gas PICC line placed started on TPN OBJECTIVE: Vital Signs-as noted below Exam: General-awake and alert , sitting on chair Lungs-diminished Heart-regular S1/S2 Abdomen-distended, soft, bowel sound active, non tender Extremities-no rash Neuro-no focal deficit Lab data as noted below. 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 - A large amount of food (residue) in the stomach. - Gastritis. Biopsied. 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 Dilated to 12 mm. Biopsied. - Duodenitis. - Normal 2nd part of the duodenum and 3rd part of the duodenum. - Pathology shows severe gastritis , no evidence of malignancy -pt and family updated -pt will be continued NPO with ice chips for severe gastritis/esophagitis -IV PPI -started on TPN for nutritional support , PICC line placed -plan for repeat EGD in Wednesday to assess healing NODULAR INFILTRATION ON OMENTUM : noted in CT abdomen ; 1. Nodular infiltration of the omentum with scattered peritoneal nodules. Abdominal carcinomatosis is a diagnosis of exclusion. An inflammatory peritonitis while in the differential is statistically less likely. s/p CT guided biopsy of omental nodule will follow pathology report CEA level -wnl ACUTE RENAL FAILURE ON CKD STAGE 3 due to dehydration 2 to above cont -continue IVFs -hold diuretics, avoid nephrotoxins -repeat PRP in AM HYPOKALEMIA -replace -follow daily DM2 -hold glipizide -SSI coverage H/O COLON CA -s/p resection GERD -continue PPI DVT PROPHYLAXIS: Sq heparin CODE STATUS: FULL CODE DISPOSITION to home when medically stable Vital Signs: Date Time Temp Pulse Resp B/P Pulse Ox O2 Delivery O2 Flow Rate FiO2 10/18/16 15:50 87 14 94 Room Air 10/18/16 15:27 36.4 85 91 117/72 18 Room Air 10/18/16 11:41 84 14 96 Nasal Cannula 2.0 10/18/16 08:12 80 14 94 Nasal Cannula 2.0 10/18/16 08:00 Room Air 10/18/16 07:06 36.4 79 18 125/76 94 Nasal Cannula 2.0 Humidified Oxygen 10/17/16 23:58 94 Nasal Cannula 2.0 Humidified Oxygen 10/17/16 22:57 36.9 86 18 125/72 94 Nasal Cannula 3.0 Humidified Oxygen 10/17/16 19:17 97 14 94 Nasal Cannula 2.0 Lab Results: Results Past 24 Hours Test 10/17/16 18:08 10/18/16 00:00 10/18/16 05:46 10/18/16 06:37 Range/Units Bedside Glucose 157 139 138 70-99 mg/dl Sodium Level 141 136-145 mmol/L Potassium Level 3.6 3.5-5.1 mmol/L Chloride Level 105 98-107 mmol/L Carbon Dioxide Level 26 21-32 mmol/L Anion Gap 10.0 3-11 mmol/L Blood Urea Nitrogen 21 7-18 mg/dl Creatinine 0.92 0.60-1.40 mg/dl Est Creatinine Clear Calc Drug Dose 77.5 ml/min Estimated GFR () 92.0 Estimated GFR (Non- 79.4 BUN/Creatinine Ratio 22.8 10-20 Random Glucose 147 70-99 mg/dl Calcium Level 8.7 8.5-10.1 mg/dl Phosphorus Level 2.5 2.5-4.9 mg/dl Magnesium Level 2.1 1.8-2.4 mg/dl Test 10/18/16 12:18 Range/Units Bedside Glucose 168 70-99 mg/dl
[2016-10-16] MEDS: FLUTICASONE PROPIONATE NA SPR 16 GM BTL SCH (21:30)
[2016-10-17] VITALS (10 sets, daily range): BP systolic 125–144; BP diastolic 70–72; PULSE 64–100; TEMP 36.4–37.3; O2SAT 94–96
[2016-10-17] MEDS: ONDANSETRON INJ 2 MG/ML 2 ML VIAL IV PRN ×2 (00:04→07:33)
[2016-10-17] MEDS: MoRPHine SULFATE 2 MG/ML CARP IV PRN ×3 (00:05→20:16)
[2016-10-17] MEDS: PANTOprazole INJ 40 MG in DEXTROSE 5% 100ML IV SCH ×5 (03:06→23:03)
[2016-10-17] MEDS: HEPARIN SOD 5000 UNIT/0.5 ML CARP SQ SCH ×3 (05:54→21:51)
[2016-10-17] MEDS: INSULIN ASPART 100 UNITS/ML 3 ML PEN SC SCH ×4 (06:17→18:42)
[2016-10-17 06:44] LABS: BUN/CREATININE RATIO 17.7 (10-20); CALCIUM 8.3 mg/dl (8.5-10.1); CREATININE 0.99 mg/dl (0.60-1.40); MAGNESIUM 2.5 mg/dl (1.8-2.4); POTASSIUM 3.5 mmol/L (3.5-5.1)
[2016-10-17 06:46] LABS: C-REACTIVE PROTEIN 8.51 mg/dl (0-0.29); PHOSPHORUS 2.4 mg/dl (2.5-4.9)
[2016-10-17] MEDS: ALBUT/IPRATROP 3MG/0.5MG NEB 3 ML VIAL INH SCH ×4 (08:29→19:17)
[2016-10-17] MEDS ORDERED: CUSTOM CENTRAL PN 1 BAG IV SCH (16:00)
[2016-10-17] MEDS: FLUTICASONE PROPIONATE NA SPR 16 GM BTL SCH (20:16)
--- NOTE | 2016-10-17 20:53 | Progress Note ---
Internal Med Progress Note Date of Service: Oct 17, 2016. Provider Documentation: SUBJECTIVE: sitting up on side of bed , feels much better no complain of nausea no abdominal pain or discomfort on TPN able to pass gas no bowel movement yet OBJECTIVE: Vital Signs-as noted below Exam: General-awake and alert, no sign of distress ENT-NAD Lungs-diminished Heart-regular S1/S2 Abdomen-soft, non tender , bowel sound active Extremities-no rash Neuro-no focal deficit Lab data as noted below. ASSESSMENT & PLAN: GASTRIC OUTLET OBSTRUCTION -CT scan with gastric dilation/outlet obstruction, and nodular infiltrated of omentum concern for peritoneal carcinomatosis -s/p NG tube suction ; NG tube discontinued post EGD -GI consult appreciated,s/p EGD on 10/15/16 showed : - Severe esophagitis. - A large amount of food (residue) in the stomach. - Gastritis. Biopsied. 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 Dilated to 12 mm. Biopsied. - Duodenitis. - Normal 2nd part of the duodenum and 3rd part of the duodenum. - Pathology shows severe gastritis , no evidence of malignancy -pt and family updated -pt will be continued NPO with ice chips for severe gastritis/esophagitis -IV PPI -started on TPN for nutritional support , PICC line placed -plan for repeat EGD in Wednesday10/19/16 to assess healing NODULAR INFILTRATION ON OMENTUM : noted in CT abdomen ; 1. Nodular infiltration of the omentum with scattered peritoneal nodules. Abdominal carcinomatosis is a diagnosis of exclusion. An inflammatory peritonitis while in the differential is statistically less likely. s/p CT guided biopsy of omental nodule on Wednesday10/16/16 will follow pathology report CEA level -wnl ACUTE RENAL FAILURE ON CKD STAGE 3 due to dehydration 2 to above resolved with IV fluid cr at baseline HYPOKALEMIA -replace -follow daily DM2 -hold glipizide-NPO , -SSI coverage H/O COLON CA -s/p resection GERD -continue PPI DVT PROPHYLAXIS: Sq heparin CODE STATUS: FULL CODE DISPOSITION to home when medically stable Vital Signs: Date Time Temp Pulse Resp B/P Pulse Ox O2 Delivery O2 Flow Rate FiO2 10/18/16 15:50 87 14 94 Room Air 10/18/16 15:27 36.4 85 91 117/72 18 Room Air 10/18/16 11:41 84 14 96 Nasal Cannula 2.0 10/18/16 08:12 80 14 94 Nasal Cannula 2.0 10/18/16 08:00 Room Air 10/18/16 07:06 36.4 79 18 125/76 94 Nasal Cannula 2.0 Humidified Oxygen 10/17/16 23:58 94 Nasal Cannula 2.0 Humidified Oxygen 10/17/16 22:57 36.9 86 18 125/72 94 Nasal Cannula 3.0 Humidified Oxygen 10/17/16 19:17 97 14 94 Nasal Cannula 2.0 Lab Results: Results Past 24 Hours Test 10/17/16 18:08 10/18/16 00:00 10/18/16 05:46 10/18/16 06:37 Range/Units Bedside Glucose 157 139 138 70-99 mg/dl Sodium Level 141 136-145 mmol/L Potassium Level 3.6 3.5-5.1 mmol/L Chloride Level 105 98-107 mmol/L Carbon Dioxide Level 26 21-32 mmol/L Anion Gap 10.0 3-11 mmol/L Blood Urea Nitrogen 21 7-18 mg/dl Creatinine 0.92 0.60-1.40 mg/dl Est Creatinine Clear Calc Drug Dose 77.5 ml/min Estimated GFR () 92.0 Estimated GFR (Non- 79.4 BUN/Creatinine Ratio 22.8 10-20 Random Glucose 147 70-99 mg/dl Calcium Level 8.7 8.5-10.1 mg/dl Phosphorus Level 2.5 2.5-4.9 mg/dl Magnesium Level 2.1 1.8-2.4 mg/dl Test 10/18/16 12:18 Range/Units Bedside Glucose 168 70-99 mg/dl
[2016-10-18] VITALS (7 sets, daily range): BP systolic 117–132; BP diastolic 72–76; PULSE 79–90; TEMP 36.4–36.8; O2SAT 18–97
[2016-10-18] MEDS: PANTOprazole INJ 40 MG in DEXTROSE 5% 100ML IV SCH ×5 (03:53→23:53)
[2016-10-18] MEDS: HEPARIN SOD 5000 UNIT/0.5 ML CARP SQ SCH ×3 (05:43→21:38)
[2016-10-18] MEDS: INSULIN ASPART 100 UNITS/ML 3 ML PEN SC SCH ×4 (05:47→18:52)
[2016-10-18] MEDS: ONDANSETRON INJ 2 MG/ML 2 ML VIAL IV PRN ×2 (06:17→20:53)
[2016-10-18 07:40] LABS: BUN/CREATININE RATIO 22.8 (10-20); CALCIUM 8.7 mg/dl (8.5-10.1); CREATININE 0.92 mg/dl (0.60-1.40); MAGNESIUM 2.1 mg/dl (1.8-2.4); POTASSIUM 3.6 mmol/L (3.5-5.1)
[2016-10-18 07:41] LABS: PHOSPHORUS 2.5 mg/dl (2.5-4.9)
[2016-10-18] MEDS: ALBUT/IPRATROP 3MG/0.5MG NEB 3 ML VIAL INH SCH ×4 (08:09→20:40)
[2016-10-18] MEDS: MoRPHine SULFATE 2 MG/ML CARP IV PRN ×2 (12:15→21:32)
--- NOTE | 2016-10-18 12:38 | Progress Note ---
Progress Note Date of Service Oct 18, 2016. Progress Note pathology from Radiology pending Plan for repeat EGD with dilation tomorrow of pylorus to see if helps with GOO. Likely will need definitive therapy with bypass vs enteral stent, await pathology for determination
[2016-10-18] MEDS ORDERED: CUSTOM CENTRAL PN 1 BAG IV SCH (16:00)
[2016-10-18] MEDS: FLUTICASONE PROPIONATE NA SPR 16 GM BTL SCH (20:56)
--- NOTE | 2016-10-18 21:04 | Progress Note ---
Internal Med Progress Note Date of Service: Oct 18, 2016. Provider Documentation: SUBJECTIVE: continues to feel well , no bowel movement yet ,able to pass gas wants to know when he can go home getting TPN via rt upper ext PICC OBJECTIVE: Vital Signs-as noted below Exam: General-awake and alert , sitting on chair Lungs-diminished Heart-regular S1/S2 Abdomen-distended, soft, bowel sound active, non tender Extremities-no rash Neuro-no focal deficit Lab data as noted below. ASSESSMENT & PLAN: GASTRIC OUTLET OBSTRUCTION -CT scan with gastric dilation/outlet obstruction, and nodular infiltrated of omentum concern for peritoneal carcinomatosis -s/p NG tube suction ; NG tube discontinued post EGD -GI consult appreciated,s/p EGD on 10/15/16 showed : - Severe esophagitis. - A large amount of food (residue) in the stomach. - Gastritis. Biopsied. 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 Dilated to 12 mm. Biopsied. - Duodenitis. - Normal 2nd part of the duodenum and 3rd part of the duodenum. - Pathology shows severe gastritis , no evidence of malignancy -pt and family updated -pt will be continued NPO with ice chips for severe gastritis/esophagitis -IV PPI -started on TPN for nutritional support , PICC line placed -plan for repeat EGD in Wednesday10/19/16 to assess healing -ordered for NPO NODULAR INFILTRATION ON OMENTUM : noted in CT abdomen ; 1. Nodular infiltration of the omentum with scattered peritoneal nodules. Abdominal carcinomatosis is a diagnosis of exclusion. An inflammatory peritonitis while in the differential is statistically less likely. s/p CT guided biopsy of omental nodule on Wednesday10/16/16 pathology report -pending CEA level -wnl ACUTE RENAL FAILURE ON CKD STAGE 3 due to dehydration 2 to above resolved with IV fluid cr at baseline HYPOKALEMIA -replace -follow daily DM2 -hold glipizide-NPO , -SSI coverage H/O COLON CA -s/p resection GERD -continue PPI DVT PROPHYLAXIS: Sq heparin CODE STATUS: FULL CODE DISPOSITION to home when medically stable Family -daughter and significant other updated at bedside Vital Signs: Date Time Temp Pulse Resp B/P Pulse Ox O2 Delivery O2 Flow Rate FiO2 10/18/16 20:40 90 14 95 Room Air 10/18/16 15:50 87 14 94 Room Air 10/18/16 15:45 Nasal Cannula 2.0 10/18/16 15:27 36.4 85 18 117/72 91 Room Air 10/18/16 11:41 84 14 96 Nasal Cannula 2.0 10/18/16 08:12 80 14 94 Nasal Cannula 2.0 10/18/16 08:00 Room Air 10/18/16 07:06 36.4 79 18 125/76 94 Nasal Cannula 2.0 Humidified Oxygen 10/17/16 23:58 94 Nasal Cannula 2.0 Humidified Oxygen 10/17/16 22:57 36.9 86 18 125/72 94 Nasal Cannula 3.0 Humidified Oxygen Lab Results: Results Past 24 Hours Test 10/18/16 00:00 10/18/16 05:46 10/18/16 06:37 10/18/16 12:18 Range/Units Bedside Glucose 139 138 168 70-99 mg/dl Sodium Level 141 136-145 mmol/L Potassium Level 3.6 3.5-5.1 mmol/L Chloride Level 105 98-107 mmol/L Carbon Dioxide Level 26 21-32 mmol/L Anion Gap 10.0 3-11 mmol/L Blood Urea Nitrogen 21 7-18 mg/dl Creatinine 0.92 0.60-1.40 mg/dl Est Creatinine Clear Calc Drug Dose 77.5 ml/min Estimated GFR () 92.0 Estimated GFR (Non- 79.4 BUN/Creatinine Ratio 22.8 10-20 Random Glucose 147 70-99 mg/dl Calcium Level 8.7 8.5-10.1 mg/dl Phosphorus Level 2.5 2.5-4.9 mg/dl Magnesium Level 2.1 1.8-2.4 mg/dl Test 10/18/16 18:43 Range/Units Bedside Glucose 142 70-99 mg/dl
[2016-10-19] VITALS (9 sets, daily range): BP systolic 107–128; BP diastolic 65–78; PULSE 85–99; TEMP 36.4–37.1; O2SAT 90–95
[2016-10-19] MEDS: INSULIN ASPART 100 UNITS/ML 3 ML PEN SC SCH ×4 (00:18→18:30)
[2016-10-19] MEDS: MoRPHine SULFATE 2 MG/ML CARP IV PRN ×6 (00:36→23:32)
[2016-10-19] MEDS: PANTOprazole INJ 40 MG in DEXTROSE 5% 100ML IV SCH ×4 (05:15→19:38)
[2016-10-19] MEDS: HEPARIN SOD 5000 UNIT/0.5 ML CARP SQ SCH ×3 (05:48→21:19)
[2016-10-19] MEDS: ALBUT/IPRATROP 3MG/0.5MG NEB 3 ML VIAL INH SCH ×4 (07:44→20:00)
[2016-10-19 08:23] LABS: BUN/CREATININE RATIO 23.7 (10-20); CALCIUM 8.6 mg/dl (8.5-10.1); CREATININE 0.97 mg/dl (0.60-1.40); MAGNESIUM 1.9 mg/dl (1.8-2.4); POTASSIUM 3.9 mmol/L (3.5-5.1)
[2016-10-19 08:24] LABS: PHOSPHORUS 2.8 mg/dl (2.5-4.9)
--- NOTE | 2016-10-19 12:21 | Progress Note ---
Progress Note Date of Service Oct 19, 2016. Progress Note Mr. Leonardo was seen and examined this morning. EGD postponed until biopsies are finalized. Mr. Leonardo is unlikely to benefit from dilation or stenting if gastric outlet obstruction is secondary to extrinsic compression. This was fully explained to and Mrs. Leonardo - they verbalized understanding. EGD 10/14/16: Severe esophagitis. A large amount of food (residue) in the stomach. Gastritis. Biopsied. Severe pyloric stenosis causing gastric outlet obstruction. Dilated to 12 mm. Biopsied. Duodenitis. Normal 2nd part of the duodenum and 3rd part of the duodenum. CT ABD 10/13/16: Nodular infiltration of the omentum with scattered peritoneal nodules. Abdominal carcinomatosis is a diagnosis of exclusion. An inflammatory peritonitis while in the differential is statistically less likely. Scant ascites. Marked gastric dilatation. The findings are indicative of a gastric outlet obstruction. GI consultation is recommended. Cholelithiasis. 3 cm right adrenal myelolipoma. 3.3 cm infrarenal abdominal aortic aneurysm ROS: negative PE: Alert, oriented x 3. PERRLA Lungs are diminished. Heart is regular in rate and rhythm. Abdomen is soft, distented, non-tender with bowel sounds x 4 quadrants Plan Ice chips Continue TPN PPI drip EGD pending biopsy results
[2016-10-19] MEDS ORDERED: CUSTOM CENTRAL PN 1 BAG IV SCH (16:00)
[2016-10-19] MEDS: FLUTICASONE PROPIONATE NA SPR 16 GM BTL SCH (21:15)
--- NOTE | 2016-10-19 22:43 | Progress Note ---
Internal Med Progress Note Date of Service: Oct 19, 2016. Provider Documentation: SUBJECTIVE: offers no complain getting TPN via PICC Line EGD was not done today pending pathology for abdominal /omental Lymph node OBJECTIVE: Vital Signs-as noted below Exam: General-awake and alert , sitting on chair , please ,no sign of discomfort Lungs-diminished Heart-regular S1/S2 Abdomen-distended, soft, bowel sound active, non tender Extremities-no rash , right upper ext PICC line present Neuro-no focal deficit Lab data as noted below. ASSESSMENT & PLAN: GASTRIC OUTLET OBSTRUCTION -CT scan with gastric dilation/outlet obstruction, and nodular infiltrated of omentum concern for peritoneal carcinomatosis -s/p NG tube suction ; NG tube discontinued post EGD -GI consult appreciated,s/p EGD on 10/15/16 showed : - Severe esophagitis. - A large amount of food (residue) in the stomach. - Gastritis. Biopsied. 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 Dilated to 12 mm. Biopsied. - Duodenitis. - Normal 2nd part of the duodenum and 3rd part of the duodenum. - Pathology shows severe gastritis , no evidence of malignancy -pt and family updated -pt will be continued NPO with ice chips for severe gastritis/esophagitis -IV PPI -started on TPN for nutritional support , PICC line placed -appreciate GI eval , EGD postponed today -pending pathology report for abdomen omental node biopsy -pt will be continued on TPN NODULAR INFILTRATION ON OMENTUM : noted in CT abdomen ; 1. Nodular infiltration of the omentum with scattered peritoneal nodules. Abdominal carcinomatosis is a diagnosis of exclusion. An inflammatory peritonitis while in the differential is statistically less likely. s/p CT guided biopsy of omental nodule on Wednesday10/16/16 pathology report -Metastatic adeno CA CEA level -wnl ordered for CA 19-9 level ACUTE RENAL FAILURE ON CKD STAGE 3 due to dehydration 2 to above resolved with IV fluid cr at baseline currently getting TPN HYPOKALEMIA -replace -follow daily DM2 -hold glipizide-NPO , -SSI coverage H/O COLON CA -s/p resection GERD -continue PPI DVT PROPHYLAXIS: Sq heparin CODE STATUS: FULL CODE DISPOSITION to home when medically stable Vital Signs: Date Time Temp Pulse Resp B/P Pulse Ox O2 Delivery O2 Flow Rate FiO2 10/19/16 20:47 85 16 91 Room Air 10/19/16 20:32 92 Room Air 10/19/16 15:56 89 16 92 Room Air 10/19/16 14:55 36.4 90 18 128/78 93 Room Air 10/19/16 11:55 90 14 90 Room Air 10/19/16 08:00 36.8 94 20 107/65 94 Nasal Cannula 2.0 10/19/16 07:44 99 14 95 Room Air 10/19/16 07:15 93 Nasal Cannula 2.0 10/18/16 23:35 Nasal Cannula 2.0 10/18/16 23:30 36.8 82 18 132/74 97 Nasal Cannula 2.0 Humidified Air Lab Results: Results Past 24 Hours Test 10/19/16 00:03 10/19/16 05:53 10/19/16 07:45 10/19/16 11:29 Range/Units Bedside Glucose 143 144 150 70-99 mg/dl Sodium Level 141 136-145 mmol/L Potassium Level 3.9 3.5-5.1 mmol/L Chloride Level 105 98-107 mmol/L Carbon Dioxide Level 28 21-32 mmol/L Anion Gap 8.0 3-11 mmol/L Blood Urea Nitrogen 23 7-18 mg/dl Creatinine 0.97 0.60-1.40 mg/dl Est Creatinine Clear Calc Drug Dose 73.7 ml/min Estimated GFR () 86.3 Estimated GFR (Non- 74.5 BUN/Creatinine Ratio 23.7 10-20 Random Glucose 125 70-99 mg/dl Calcium Level 8.6 8.5-10.1 mg/dl Phosphorus Level 2.8 2.5-4.9 mg/dl Magnesium Level 1.9 1.8-2.4 mg/dl Test 10/19/16 18:22 Range/Units Bedside Glucose 157 70-99 mg/dl
[2016-10-20] VITALS (8 sets, daily range): BP systolic 124–134; BP diastolic 72–80; PULSE 84–102; TEMP 36.2–37; O2SAT 91–96
[2016-10-20] MEDS: INSULIN ASPART 100 UNITS/ML 3 ML PEN SC SCH ×4 (00:06→18:26)
[2016-10-20] MEDS: PANTOprazole INJ 40 MG in DEXTROSE 5% 100ML IV SCH ×5 (00:40→20:56)
[2016-10-20] MEDS: MoRPHine SULFATE 2 MG/ML CARP IV PRN ×6 (03:06→23:23)
[2016-10-20] MEDS: HEPARIN SOD 5000 UNIT/0.5 ML CARP SQ SCH ×3 (06:02→20:58)
[2016-10-20 06:47] LABS: BUN/CREATININE RATIO 27.2 (10-20); CALCIUM 8.4 mg/dl (8.5-10.1); CREATININE 0.94 mg/dl (0.60-1.40); POTASSIUM 4.2 mmol/L (3.5-5.1)
[2016-10-20] MEDS: ALBUT/IPRATROP 3MG/0.5MG NEB 3 ML VIAL INH SCH ×4 (07:40→20:48)
[2016-10-20] MEDS: ONDANSETRON INJ 2 MG/ML 2 ML VIAL IV PRN (09:41)
--- NOTE | 2016-10-20 11:56 | Gastroenterology Progress Note ---
Progress Note Date of Service: Oct 20, 2016 Subjective Pt evaluation today including: conversation w/ patient, physical exam, chart review Pt was seen and examined this morning. No complaints. No worsening SOB. No abdominal pain, black/bloody stools. 95% on room air Review of Systems Constitutional: No chills, No fever Respiratory: No cough, No shortness of breath Cardiac: No chest pain, No edema Abdomen: + nausea, No GI bleeding, No constipation, No diarrhea, No dysphagia, No pain, No vomiting Medications Current Inpatient Medications Medications (Trade) Dose Ordered Sig/Kristine Route Start Time Stop Time Status Last Admin Dose Admin Ondansetron HCl (Zofran Inj) 4 mg Q6H PRN IV 10/13/16 15:00 11/12/16 14:59 10/20/16 09:41 4 MG Morphine Sulfate (MoRPHine SULFATE INJ) 2 mg Q3H PRN IV 10/13/16 15:00 10/27/16 14:59 10/20/16 09:41 2 MG Fluticasone Propionate (Flonase Nasal [place]) 2 sprays HS NA 10/13/16 21:00 11/12/16 20:59 10/19/16 21:15 2 SPRAYS Albuterol/ Ipratropium (Duoneb) 3 ml Q6 PRN INH 10/13/16 15:00 11/12/16 14:59 10/15/16 14:22 3 ML Isosorbide Mononitrate (Imdur Ext Rel Tab) 90 mg DAILY PO 10/14/16 09:00 11/13/16 08:59 Future Hold 10/14/16 07:28 90 MG Nitroglycerin (Nitrostat Tab) 0.4 mg PRN UT 10/13/16 15:00 11/12/16 14:59 Miscellaneous Information (Order Awaiting Action) 1 ea QS N/A 10/13/16 16:00 11/12/16 15:59 Heparin Sodium (Porcine) (Heparin Sq 5000 Unit/0.5ml) 5,000 unit Q8 SQ 10/13/16 22:00 11/12/16 21:59 10/20/16 06:02 5,000 UNIT Glucose (Glucose 40% Gel) 15-30 GRAMS 15 GRAMS... UD PRN PO 10/13/16 16:30 11/12/16 16:29 Glucose (Glucose Chew Tab) 4-8 Tablets 4 Tabl... UD PRN PO 10/13/16 16:30 11/12/16 16:29 Dextrose (Dextrose 50% 50ML Syringe) 25-50ML OF 50% DW IV FOR... UD PRN IV 10/13/16 16:30 11/12/16 16:29 Glucagon (Glucagon Inj) 1 mg UD PRN SQ 10/13/16 16:30 11/12/16 16:29 Insulin Aspart SLIDING SCALE If C... Q6 SC 10/14/16 00:00 11/13/16 00:00 10/20/16 06:01 1 UNITS Pantoprazole Sodium/Dextrose (Protonix Inj/D5 100ml) 100 ml @ 20 mls/hr Q5H IV 10/14/16 15:15 11/13/16 15:14 10/20/16 10:45 20 MLS/HR Miscellaneous Information (Pharmacy Tpn/ Ppn Consult Active) 1 ea UD PRN N/A 10/15/16 15:13 11/14/16 15:12 Albuterol/ Ipratropium 3 ml 3 ml QIDR INH 10/15/16 16:00 11/14/16 15:59 10/20/16 11:13 3 ML Dextrose (D10w) 1,000 ml @ 0 mls/hr Q0M PRN IV 10/16/16 13:24 11/15/16 13:23 Heparin Sodium (Porcine) 5 ml 5 ml PRN PRN FLUSH 10/17/16 01:15 11/16/16 01:14 Nutrition (Parenteral) 0 ml @ 0 mls/hr TODAY@1600 IV 10/19/16 16:00 10/20/16 15:59 10/19/16 15:30 0 MLS/HR Nutrition (Parenteral) (Custom Central Pn) 0 ml @ 0 mls/hr TODAY@1600 IV 10/20/16 16:00 10/21/16 15:59 Objective Vital Signs Date Time Temp Pulse Resp B/P Pulse Ox O2 Delivery O2 Flow Rate FiO2 10/20/16 11:13 96 16 95 Room Air 10/20/16 07:48 37.0 84 20 124/72 96 Nasal Cannula 2.0 10/20/16 07:40 100 16 92 Room Air 10/20/16 07:23 93 Room Air 2.0 10/19/16 23:35 Room Air 10/19/16 22:55 37.1 87 19 126/66 95 Room Air 10/19/16 20:47 85 16 91 Room Air 10/19/16 20:32 92 Room Air 10/19/16 15:56 89 16 92 Room Air 10/19/16 14:55 36.4 90 18 128/78 93 Room Air 10/19/16 11:55 90 14 90 Room Air Physical Exam General Appearance: no apparent distress Eyes: PERRL ENT: hearing grossly normal Neck: supple, trachea midline Respiratory/Chest: normal breath sounds, no respiratory distress, no accessory muscle use, + decreased breath sounds, + wheezing, + expiration Cardiovascular: regular rate, rhythm, no gallop, no JVD Abdomen: normal bowel sounds, soft, no organomegaly, no pulsatile mass Neurologic/Psych: alert, normal mood/affect, oriented x 3 Skin: normal color, no jaundice Laboratory Results Last 24 Hours Test 10/19/16 18:22 10/19/16 23:59 10/20/16 05:51 10/20/16 06:00 Bedside Glucose 157 mg/dl 149 mg/dl 160 mg/dl Sodium Level 140 mmol/L Potassium Level 4.2 mmol/L Chloride Level 106 mmol/L Carbon Dioxide Level 29 mmol/L Anion Gap 5.0 mmol/L Blood Urea Nitrogen 26 mg/dl Creatinine 0.94 mg/dl Est Creatinine Clear Calc Drug Dose 76.4 ml/min Estimated GFR () 89.6 Estimated GFR (Non- 77.3 BUN/Creatinine Ratio 27.2 Random Glucose 163 mg/dl Calcium Level 8.4 mg/dl Magnesium Level 2.0 mg/dl Assessment and Plan Ice chips Continue TPN PPI drip EGD pending biopsy results NPO after midnight EGD tomorrow I have seen and examined the patient with Ambar Awad whose note reflects our findings and plan. Pathology from the abd biopsy showed metastatic adenocarcinoma. Patient was not aware of this and became quite upset when I told him this afternoon. He has a history of colon cancer approx 4 years ago. He thinks his last colonoscopy was 2 years ago. He is not sure of the details. See below - details obtained from [facility]. Did not have chemo or XRT. Remains on TPN. We discussed the fact that repeating EGD and dilation may not have a sustained or clinically significant result. Stenting also not likely to provide honeycomb decapper relief of obstruction. Agreeable to repeat EGD tomorrow for attempt at dilation. Need to consider a colonoscopy as well. Patient wants to think about this. Last colonoscopy was 06/08 - Dr. Cohen - per report - repeat in 3 years for surveillance. Normal appearing colon. 06/07 - Dr. Wilson - polyps ascending and transverse; tumor at 30 cm. Referred to colorectal for surgery. EGD tomorrow. Primary team will need to revisit the idea of a colonoscopy with patient later today as well and if agreeable, will need enemas tonight and tomorrow.
[2016-10-20] MEDS ORDERED: CUSTOM CENTRAL PN 1 BAG IV SCH (16:00)
--- NOTE | 2016-10-20 19:45 | Progress Note ---
Subjective Date of Service: Oct 20, 2016. Subjective Pt evaluation today including: conversation w/ patient, physical exam, lab review, review of studies, review of inpatient medication list Saw/examined the patient in room 352 He is sitting in a chair; resting Abdomen clearly distended, very tender to touch He states he's weak Knows about plan for EGD Problem List Medical Problems: (1) Acute kidney injury Status: Acute (2) COPD (chronic obstructive pulmonary disease) Status: Chronic (3) Dehydration Status: Acute (4) Gastric outlet obstruction Status: Acute (5) Nausea & vomiting Status: Acute Review of Systems Constitutional: No chills, No fever Respiratory: No cough, No shortness of breath, No sputum Cardiac: No chest pain Abdomen: + nausea, + pain, + vomiting, No GI bleeding, No constipation, No diarrhea Heme: No abnormal bleeding/bruising Medications Current Inpatient Medications Medications (Trade) Dose Ordered Sig/Kristine Route Start Time Stop Time Status Last Admin Dose Admin Ondansetron HCl (Zofran Inj) 4 mg Q6H PRN IV 10/13/16 15:00 11/12/16 14:59 10/20/16 09:41 4 MG Morphine Sulfate (MoRPHine SULFATE INJ) 2 mg Q3H PRN IV 10/13/16 15:00 10/27/16 14:59 10/20/16 15:23 2 MG Fluticasone Propionate (Flonase Nasal [place]) 2 sprays HS NA 10/13/16 21:00 11/12/16 20:59 10/19/16 21:15 2 SPRAYS Albuterol/ Ipratropium (Duoneb) 3 ml Q6 PRN INH 10/13/16 15:00 11/12/16 14:59 10/15/16 14:22 3 ML Isosorbide Mononitrate (Imdur Ext Rel Tab) 90 mg DAILY PO 10/14/16 09:00 11/13/16 08:59 Future Hold 10/14/16 07:28 90 MG Nitroglycerin (Nitrostat Tab) 0.4 mg PRN UT 10/13/16 15:00 11/12/16 14:59 Miscellaneous Information (Order Awaiting Action) 1 ea QS N/A 10/13/16 16:00 11/12/16 15:59 Heparin Sodium (Porcine) (Heparin Sq 5000 Unit/0.5ml) 5,000 unit Q8 SQ 10/13/16 22:00 11/12/16 21:59 10/20/16 13:36 5,000 UNIT Glucose (Glucose 40% Gel) 15-30 GRAMS 15 GRAMS... UD PRN PO 10/13/16 16:30 11/12/16 16:29 Glucose (Glucose Chew Tab) 4-8 Tablets 4 Tabl... UD PRN PO 10/13/16 16:30 11/12/16 16:29 Dextrose (Dextrose 50% 50ML Syringe) 25-50ML OF 50% DW IV FOR... UD PRN IV 10/13/16 16:30 11/12/16 16:29 Glucagon (Glucagon Inj) 1 mg UD PRN SQ 10/13/16 16:30 11/12/16 16:29 Insulin Aspart SLIDING SCALE If C... Q6 SC 10/14/16 00:00 11/13/16 00:00 10/20/16 18:26 1 UNITS Pantoprazole Sodium/Dextrose (Protonix Inj/D5 100ml) 100 ml @ 20 mls/hr Q5H IV 10/14/16 15:15 11/13/16 15:14 10/20/16 15:38 20 MLS/HR Miscellaneous Information (Pharmacy Tpn/ Ppn Consult Active) 1 ea UD PRN N/A 10/15/16 15:13 11/14/16 15:12 Albuterol/ Ipratropium 3 ml 3 ml QIDR INH 10/15/16 16:00 11/14/16 15:59 10/20/16 15:55 3 ML Dextrose (D10w) 1,000 ml @ 0 mls/hr Q0M PRN IV 10/16/16 13:24 11/15/16 13:23 Heparin Sodium (Porcine) 5 ml 5 ml PRN PRN FLUSH 10/17/16 01:15 11/16/16 01:14 Nutrition (Parenteral) (Custom Central Pn) 0 ml @ 0 mls/hr TODAY@1600 IV 10/20/16 16:00 10/21/16 15:59 10/20/16 15:31 0 MLS/HR Objective Vital Signs Date Time Temp Pulse Resp B/P Pulse Ox O2 Delivery O2 Flow Rate FiO2 10/20/16 16:02 84 16 95 Room Air 10/20/16 15:09 36.2 102 20 131/78 91 10/20/16 11:13 96 16 95 Room Air 10/20/16 07:48 37.0 84 20 124/72 96 Nasal Cannula 2.0 10/20/16 07:40 100 16 92 Room Air 10/20/16 07:23 93 Room Air 2.0 10/19/16 23:35 Room Air 10/19/16 22:55 37.1 87 19 126/66 95 Room Air 10/19/16 20:47 85 16 91 Room Air 10/19/16 20:32 92 Room Air Physical Exam General Appearance: no apparent distress Respiratory/Chest: lungs clear, normal breath sounds, no respiratory distress, no accessory muscle use Cardiovascular: regular rate, rhythm, no edema, no murmur Abdomen: + abnormal bowel sounds (decreased), + distended, + tenderness Extremities: normal inspection, no pedal edema Laboratory Results Last 24 Hours Test 10/19/16 23:59 10/20/16 05:51 10/20/16 06:00 10/20/16 12:03 Bedside Glucose 149 mg/dl 160 mg/dl 169 mg/dl Sodium Level 140 mmol/L Potassium Level 4.2 mmol/L Chloride Level 106 mmol/L Carbon Dioxide Level 29 mmol/L Anion Gap 5.0 mmol/L Blood Urea Nitrogen 26 mg/dl Creatinine 0.94 mg/dl Est Creatinine Clear Calc Drug Dose 76.4 ml/min Estimated GFR () 89.6 Estimated GFR (Non- 77.3 BUN/Creatinine Ratio 27.2 Random Glucose 163 mg/dl Calcium Level 8.4 mg/dl Magnesium Level 2.0 mg/dl Test 10/20/16 18:22 Bedside Glucose 179 mg/dl Assessment and Plan This is a 76 year old male with PMH of CAD s/p CABG and stents, Paroxysmal Atrial Fibrillation, hx. of colon carcinoma, CKD stage 3, COPD, hx. of CVA presents with significant abdominal pain, nausea/vomiting and found to have gastric outlet obstruction Gastric Outlet Obstruction CT abdomen/pelvis showed gastric dilatation and likely gastric outlet obstruction EGD was performed on 10/15 - showing severe gastritis patient is on Protonix drip currently only ice chips and TPN NGT no longer in place plan is for repeat EGD in AM and possible dilatation as a temporary solution for gastric outlet obstruction Nodular Infiltration of Omentum CT guided biopsy performed pathology report suggests metastatic adenocarcinoma patient should have a colonoscopy - I spoke with patient regarding this and he still seems hesitant Acute Kidney Injury superimposed on CKD stage 3 - back to baseline creat on admission = 1.8 significant dehydration secondary to nausea/vomiting, decreased PO intake/ gastric outlet obstruction now resolved after being given fluids and TPN Hypokalemia - resolved DM2 hold oral agents continue insulin sliding scale Hx. of Colon CA s/p resection GERD currently on Protonix drip transition back to oral protonix when okay with GI DVT ppx subq heparin FULL CODE
[2016-10-20] MEDS: FLUTICASONE PROPIONATE NA SPR 16 GM BTL SCH (20:56)
[2016-10-21] VITALS (10 sets, daily range): BP systolic 124–167; BP diastolic 65–78; PULSE 58–102; TEMP 36.4–37.3; O2SAT 93–97
[2016-10-21] MEDS: INSULIN ASPART 100 UNITS/ML 3 ML PEN SC SCH ×5 (00:22→23:59)
[2016-10-21] MEDS: PANTOprazole INJ 40 MG in DEXTROSE 5% 100ML IV SCH ×5 (01:31→21:39)
[2016-10-21] MEDS: MoRPHine SULFATE 2 MG/ML CARP IV PRN ×4 (05:10→19:23)
[2016-10-21] MEDS: HEPARIN SOD 5000 UNIT/0.5 ML CARP SQ SCH ×3 (05:54→21:41)
[2016-10-21 06:18] LABS: HEMATOCRIT 39.5 % (42-52); MEAN CELL VOLUME 88.4 fL (80-100); MEAN CORPUSCULAR HEMOGLOBIN 29.3 pg (25-34); MEAN CORPUSCULAR HGB CONC 33.2 g/dl (32-36); MEAN PLATELET VOLUME 10.5 fL (7.4-10.4); PLATELET COUNT 274 K/uL (130-400); RED BLOOD COUNT 4.47 M/uL (4.7-6.1); WHITE BLOOD COUNT 12.85 K/uL (4.8-10.8)
[2016-10-21 06:50] LABS: BUN/CREATININE RATIO 27.9 (10-20); CALCIUM 8.4 mg/dl (8.5-10.1); CREATININE 0.97 mg/dl (0.60-1.40); MAGNESIUM 2.1 mg/dl (1.8-2.4)
[2016-10-21 06:53] LABS: PHOSPHORUS 3.4 mg/dl (2.5-4.9)
[2016-10-21] MEDS: ALBUT/IPRATROP 3MG/0.5MG NEB 3 ML VIAL INH SCH ×4 (07:29→20:02)
[2016-10-21] MEDS: ONDANSETRON INJ 2 MG/ML 2 ML VIAL IV PRN (10:16)
--- NOTE | 2016-10-21 15:29 | Endo History and Physical ---
History & Physical Date of Service: Oct 21, 2016. Chief Complaint: gastric outlet obstruction Referring Physician: Dr. 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 Past Surgical History Hx Cardiac Surgery: Yes (Open x2 and stent placement.) Hx Abdominal Surgery: Yes (Colon resection) Hx Post-Op Nausea and Vomiting: No Hx Cancer Surgery: Yes (hx of colon CA) Hx Thoracic Surgery: Yes (Open heart x2) Hx Orthopedic: No Hx Urinary Tract Surgery: Yes (stone resection) Social History Smoking Status: Never Smoker Hx Substance Use: Yes (see eMAR) Hx Alcohol Use: No Allergies Coded Allergies: Atorvastatin (Unverified Allergy, Unknown, UNKNOWN, 10/13/16) Levofloxacin (Unverified Allergy, Unknown, UNKNOWN, 10/13/16) Simvastatin (Unverified Allergy, Unknown, UNKNOWN, 10/13/16) Current Medications Reported Home Medications Medications Dose Route/Sig Max Daily Dose Days Date Category Imdur Ext Rel (Isosorbide Mononitrate) 60 Mg Tab 1.5 Tab PO DAILY 30 10/13/16 Reported Protonix (Pantoprazole Sodium) 40 Mg Tab 40 Mg PO DAILY 10/13/16 Reported Vitamin C (Ascorbic Acid) 500 Mg Tab 500 Mg PO DAILY 10/13/16 Reported Oxygen Gas 2 Liters NA PRN 10/13/16 Reported Aspirin Ec (Aspirin) 81 Mg Tab 81 Mg PO DAILY 10/13/16 Reported Flonase Allergy Relief (Fluticasone Propionate (Nasal)) 50 Mcg/Act Spr 2 Sprays NA HS 10/13/16 Reported Norvasc (Amlodipine Besylate) 2.5 Mg Tab 2.5 Mg PO DAILY 10/13/16 Reported Duoneb (Ipratropium-Albuterol) 3 Ml Nebu 1 Treatment INH Q6 PRN 10/13/16 Reported Lopressor (Metoprolol Tartrate) 25 Mg Tab 25 Mg PO BID 10/13/16 Reported Glimepiride 1 Mg Tab 1 Mg PO DAILY 10/13/16 Reported Nitrostat (Nitroglycerin) 0.4 Mg Tab 0.4 Mg UT PRN 10/13/16 Reported Anoro Ellipta 62.5-25 Mcg/INH (Umeclidinium-Vilanterol) 1 Aer Aer 1 Puff PO DAILY 10/13/16 Reported Combivent Respimat (Ipratropium-Albuterol) 1 Aer Aer 1 Puffs INH QID 10/13/16 Reported Plavix (Clopidogrel Bisulfate) 75 Mg Tab 75 Mg PO DAILY 10/13/16 Reported Inspra (Eplerenone) 25 Mg Tab 25 Mg PO DAILY 10/13/16 Reported Lasix (Furosemide) 40 Mg Tab 40 Mg PO BID 10/13/16 Reported Vital Signs Weight (Kilograms): 106.000 Height (Feet): 5 Height (Inches): 8.00 Date Time Temp Pulse Resp B/P Pulse Ox O2 Delivery O2 Flow Rate FiO2 10/21/16 13:30 93 Room Air 10/21/16 13:30 36.4 58 18 167/65 93 Room Air 10/21/16 13:30 Room Air 10/21/16 11:20 102 20 95 Room Air 10/21/16 10:01 95 Room Air 10/21/16 09:26 36.5 82 16 128/78 95 Room Air 10/21/16 07:57 36.5 82 16 128/78 95 Room Air 10/21/16 07:30 Room Air 10/21/16 07:30 96 16 97 Nasal Cannula 3.0 10/20/16 23:30 Room Air 10/20/16 23:09 36.4 93 17 134/80 96 Room Air 10/20/16 20:49 94 16 94 Room Air 10/20/16 20:00 Room Air 10/20/16 16:02 84 16 95 Room Air Physical Exam General Appearance: WD/WN, no apparent distress Assessment and Plan EGD with dilation today
[2016-10-21] MEDS ORDERED: SUCCINYLCHOLINE CHLORIDE 20 MG/ML 10 ML VIAL IV ONE (15:31)
[2016-10-21] MEDS ORDERED: PROPOFOL IV EMULSION 10 MG/ML 20 ML VIAL IV ONE (15:31)
[2016-10-21] MEDS ORDERED: LIDOCAINE HCL 2% 2 ML VIAL (20MG/ML) ONE (15:31)
[2016-10-21] MEDS ORDERED: MIDAZOLAM HCL 1 MG/ML 2ML VIAL ONE (15:32)
[2016-10-21] MEDS ORDERED: FENTANYL CITRATE INJ 50 MCG/1 ML 2 ML VIAL ONE (15:32)
[2016-10-21] MEDS ORDERED: ROCURONIUM BROMIDE 10 MG/ML 5 ML VIAL ONE (15:34)
[2016-10-21] MEDS ORDERED: EpHEDrine SULFATE INJ 50 MG/ML AMP IV PRN (16:00)
[2016-10-21] MEDS ORDERED: CUSTOM CENTRAL PN 1 BAG IV SCH (16:00)
[2016-10-21] MEDS ORDERED: ALBUT/IPRATROP 3MG/0.5MG NEB 3 ML VIAL INH ONE (16:00)
[2016-10-21] MEDS ORDERED: ATROPINE SULFATE 0.1 MG/ML 5ML SYR IV PRN (16:00)
[2016-10-21] MEDS ORDERED: ONDANSETRON INJ 2 MG/ML 2 ML VIAL ONE (16:38)
[2016-10-21] MEDS ORDERED: ETOMIDATE 2 MG/ML 20 ML VIAL IV ONE (16:38)
[2016-10-21] MEDS ORDERED: LARYING-O-JET KIT (LTA) EXT ONE ×2 (16:47)
[2016-10-21] MEDS ORDERED: ALBUTEROL HFA INHALER 8.5 GM INH ONE (17:01)
[2016-10-21] MEDS ORDERED: NURSING VERBAL MED ORDER ONE (17:15)
[2016-10-21] MEDS ORDERED: NITROGLYCERIN 0.4 MG SL PER TAB CHARGE SL STA (18:24)
--- NOTE | 2016-10-21 18:48 | Anesthesiology Progress Note ---
Anesthesia Post Op Note Date & Time Oct 21, 2016 at 18:45 Vital Signs Pain Intensity: 0 Vital Signs Past 12 Hours Date Time Temp Pulse Resp B/P Pulse Ox O2 Delivery O2 Flow Rate FiO2 10/21/16 18:05 36.2 94 20 130/71 97 Nasal Cannula 2 10/21/16 17:55 36.2 95 20 120/73 98 Nasal Cannula 2 10/21/16 17:45 36.2 96 20 127/72 98 Nasal Cannula 4 10/21/16 17:35 36.2 96 20 119/69 97 Nasal Cannula 4 10/21/16 17:25 96 20 119/69 97 Nasal Cannula 4 10/21/16 17:15 100 20 132/85 98 Nasal Cannula 4 10/21/16 17:05 100 20 99/80 98 Nasal Cannula 4 10/21/16 17:05 99 20 148/86 99 Nasal Cannula 4 10/21/16 16:55 99 20 147/89 95 Mask 10 10/21/16 16:48 36.3 96 20 152/90 98 Mask 10 10/21/16 16:04 95 18 95 Room Air 10/21/16 13:30 93 Room Air 10/21/16 13:30 36.4 58 18 167/65 93 Room Air 10/21/16 13:30 Room Air 10/21/16 11:20 102 20 95 Room Air 10/21/16 10:01 95 Room Air 10/21/16 09:26 36.5 82 16 128/78 95 Room Air 10/21/16 07:57 36.5 82 16 128/78 95 Room Air 10/21/16 07:30 Room Air 10/21/16 07:30 96 16 97 Nasal Cannula 3.0 Notes Mental Status: alert / awake / arousable, participated in evaluation Pt Amnestic to Procedure: Yes Nausea / Vomiting: adequately controlled Pain: adequately controlled Airway Patency, RR, SpO2: stable & adequate BP & HR: stable & adequate Hydration State: stable & adequate Anesthetic Complications: no major complications apparent The patient complained of left sided chest pain which mimicked the angina that he has after meals. He said it is resolved with one sublingual NTG tab. He takes it daily. We gave him one NTG tab sublingual and his pain resolved completely.
--- NOTE | 2016-10-21 19:57 | Progress Note ---
Subjective Date of Service: Oct 21, 2016. Subjective Pt evaluation today including: conversation w/ patient, conversation w/ family , physical exam, lab review, review of studies, conversation w/ media consultant outside sales, review of inpatient medication list Saw/examined the patient in room 352 Post-EGD, still in pain, in good spirits Wants to be transferred to [facility] in [place] Problem List Medical Problems: (1) Acute kidney injury Status: Acute (2) COPD (chronic obstructive pulmonary disease) Status: Chronic (3) Dehydration Status: Acute (4) Gastric outlet obstruction Status: Acute (5) Nausea & vomiting Status: Acute Review of Systems Constitutional: + weakness, No chills, No fever Abdomen: + nausea, + pain, + vomiting, No diarrhea Medications Current Inpatient Medications Medications (Trade) Dose Ordered Sig/Kristine Route Start Time Stop Time Status Last Admin Dose Admin Ondansetron HCl (Zofran Inj) 4 mg Q6H PRN IV 10/13/16 15:00 11/12/16 14:59 10/21/16 10:16 4 MG Morphine Sulfate (MoRPHine SULFATE INJ) 2 mg Q3H PRN IV 10/13/16 15:00 10/27/16 14:59 10/21/16 19:23 2 MG Fluticasone Propionate (Flonase Nasal [place]) 2 sprays HS NA 10/13/16 21:00 11/12/16 20:59 10/20/16 20:56 2 SPRAYS Albuterol/ Ipratropium (Duoneb) 3 ml Q6 PRN INH 10/13/16 15:00 11/12/16 14:59 10/15/16 14:22 3 ML Isosorbide Mononitrate (Imdur Ext Rel Tab) 90 mg DAILY PO 10/14/16 09:00 11/13/16 08:59 Future Hold 10/14/16 07:28 90 MG Nitroglycerin (Nitrostat Tab) 0.4 mg PRN UT 10/13/16 15:00 11/12/16 14:59 Miscellaneous Information (Order Awaiting Action) 1 ea QS N/A 10/13/16 16:00 11/12/16 15:59 Heparin Sodium (Porcine) (Heparin Sq 5000 Unit/0.5ml) 5,000 unit Q8 SQ 10/13/16 22:00 11/12/16 21:59 10/21/16 05:54 5,000 UNIT Glucose (Glucose 40% Gel) 15-30 GRAMS 15 GRAMS... UD PRN PO 10/13/16 16:30 11/12/16 16:29 Glucose (Glucose Chew Tab) 4-8 Tablets 4 Tabl... UD PRN PO 10/13/16 16:30 11/12/16 16:29 Dextrose (Dextrose 50% 50ML Syringe) 25-50ML OF 50% DW IV FOR... UD PRN IV 10/13/16 16:30 11/12/16 16:29 Glucagon (Glucagon Inj) 1 mg UD PRN SQ 10/13/16 16:30 11/12/16 16:29 Insulin Aspart SLIDING SCALE If C... Q6 SC 10/14/16 00:00 11/13/16 00:00 10/21/16 12:34 1 UNITS Pantoprazole Sodium/Dextrose (Protonix Inj/D5 100ml) 100 ml @ 20 mls/hr Q5H IV 10/14/16 15:15 11/13/16 15:14 10/21/16 18:46 20 MLS/HR Miscellaneous Information (Pharmacy Tpn/ Ppn Consult Active) 1 ea UD PRN N/A 10/15/16 15:13 11/14/16 15:12 Albuterol/ Ipratropium 3 ml 3 ml QIDR INH 10/15/16 16:00 11/14/16 15:59 10/21/16 11:19 3 ML Dextrose (D10w) 1,000 ml @ 0 mls/hr Q0M PRN IV 10/16/16 13:24 11/15/16 13:23 Heparin Sodium (Porcine) 5 ml 5 ml PRN PRN FLUSH 10/17/16 01:15 11/16/16 01:14 Nutrition (Parenteral) (Custom Central Pn) 0 ml @ 0 mls/hr TODAY@1600 IV 10/21/16 16:00 10/22/16 15:59 10/21/16 18:45 81.21 MLS/HR Ephedrine Sulfate (EpHEDrine SULFATE INJ) 5 mg Q5M PRN IV 10/21/16 16:00 10/21/16 21:00 Atropine Sulfate (Atropine Sulfate 0.1MG/Ml Inj) 0.5 mg Q1M PRN IV 10/21/16 16:00 10/21/16 21:00 Objective Vital Signs Date Time Temp Pulse Resp B/P Pulse Ox O2 Delivery O2 Flow Rate FiO2 10/21/16 18:30 36.9 96 18 124/76 97 Nasal Cannula 10/21/16 18:05 36.2 94 20 130/71 97 Nasal Cannula 2 10/21/16 17:55 36.2 95 20 120/73 98 Nasal Cannula 2 10/21/16 17:45 36.2 96 20 127/72 98 Nasal Cannula 4 10/21/16 17:35 36.2 96 20 119/69 97 Nasal Cannula 4 10/21/16 17:25 96 20 119/69 97 Nasal Cannula 4 10/21/16 17:15 100 20 132/85 98 Nasal Cannula 4 10/21/16 17:05 100 20 99/80 98 Nasal Cannula 4 10/21/16 17:05 99 20 148/86 99 Nasal Cannula 4 10/21/16 16:55 99 20 147/89 95 Mask 10 10/21/16 16:48 36.3 96 20 152/90 98 Mask 10 10/21/16 16:04 95 18 95 Room Air 10/21/16 13:30 93 Room Air 10/21/16 13:30 36.4 58 18 167/65 93 Room Air 10/21/16 13:30 Room Air 10/21/16 11:20 102 20 95 Room Air 10/21/16 10:01 95 Room Air 10/21/16 09:26 36.5 82 16 128/78 95 Room Air 10/21/16 07:57 36.5 82 16 128/78 95 Room Air 10/21/16 07:30 Room Air 10/21/16 07:30 96 16 97 Nasal Cannula 3.0 10/20/16 23:30 Room Air 10/20/16 23:09 36.4 93 17 134/80 96 Room Air 10/20/16 20:49 94 16 94 Room Air 10/20/16 20:00 Room Air Physical Exam General Appearance: no apparent distress Respiratory/Chest: lungs clear, normal breath sounds, no respiratory distress, no accessory muscle use Cardiovascular: regular rate, rhythm, no edema, no murmur Abdomen: + abnormal bowel sounds, + distended, + tenderness Laboratory Results Last 24 Hours Test 3/28/17 23:58 10/21/16 05:40 10/21/16 05:49 10/21/16 11:49 Bedside Glucose 165 mg/dl 154 mg/dl 156 mg/dl White Blood Count 12.85 K/uL Red Blood Count 4.47 M/uL Hemoglobin 13.1 g/dL Hematocrit 39.5 % Mean Corpuscular Volume 88.4 fL Mean Corpuscular Hemoglobin 29.3 pg Mean Corpuscular Hemoglobin Concent 33.2 g/dl RDW Standard Deviation 43.8 fL RDW Coefficient of Variation 13.5 % Platelet Count 274 K/uL Mean Platelet Volume 10.5 fL Sodium Level 139 mmol/L Potassium Level 4.0 mmol/L Chloride Level 106 mmol/L Carbon Dioxide Level 27 mmol/L Anion Gap 6.0 mmol/L Blood Urea Nitrogen 27 mg/dl Creatinine 0.97 mg/dl Est Creatinine Clear Calc Drug Dose 74.1 ml/min Estimated GFR () 86.3 Estimated GFR (Non- 74.5 BUN/Creatinine Ratio 27.9 Random Glucose 161 mg/dl Calcium Level 8.4 mg/dl Phosphorus Level 3.4 mg/dl Magnesium Level 2.1 mg/dl Test 10/21/16 19:43 Bedside Glucose 151 mg/dl Assessment and Plan This is a 76 year old male with PMH of CAD s/p CABG and stents, Paroxysmal Atrial Fibrillation, hx. of colon carcinoma, CKD stage 3, COPD, hx. of CVA presents with significant abdominal pain, nausea/vomiting and found to have gastric outlet obstruction Gastric Outlet Obstruction 10/21 Gastric outlet obstruction gastric pathology - no cancer noted, severe gastritis seen continue PPI ggt EGD done today - not able to be dilated will plan to transfer to [place] 10/20 CT abdomen/pelvis showed gastric dilatation and likely gastric outlet obstruction EGD was performed on 10/15 - showing severe gastritis patient is on Protonix drip currently only ice chips and TPN NGT no longer in place plan is for repeat EGD in AM and possible dilatation as a temporary solution for gastric outlet obstruction Nodular Infiltration of Omentum 10/21 path = metastatic adenocarcinoma 10/20 CT guided biopsy performed pathology report suggests metastatic adenocarcinoma patient should have a colonoscopy - I spoke with patient regarding this and he still seems hesitant Acute Kidney Injury superimposed on CKD stage 3 - back to baseline creat on admission = 1.8 significant dehydration secondary to nausea/vomiting, decreased PO intake/ gastric outlet obstruction now resolved after being given fluids and TPN Hypokalemia - resolved DM2 hold oral agents continue insulin sliding scale Hx. of Colon CA s/p resection GERD currently on Protonix drip transition back to oral Protonix when okay with GI DVT ppx subq heparin FULL CODE
--- NOTE | 2016-10-21 19:58 | Discharge Instructions ---
Discharge Instructions Date of Service Oct 21, 2016. Admission Reason for Admission: Acute Kidney Injury Dehydration Gastric Outlet Discharge Discharge Diagnosis / Problem: Gastric Outlet Obstruction; Carcinamatosis Discharge Goals Goal(s): Decrease discomfort, Improve function Activity Recommendations Activity Limitations: resume your previous activity . Instructions / Follow-Up Instructions / Follow-Up To be transferred to [place] for further GI evaluation Current Hospital Diet Patient's current hospital diet: Discharge Diet Recommended Diet: N/A (currently NPO, TPN + IVFs) Procedures Procedures Performed: Esophagogastroduodenoscopy Pending Studies Studies pending at discharge: no Laboratory Results Hemoglobin A1c Test 10/14/16 05:35 Range/Units Estimated Average Glucose 140 mg/dl Hemoglobin A1c 6.5 H 4.5-5.6 % Lipid Panel Test 10/16/16 06:55 Range/Units Triglycerides Level 176 H 0-150 mg/dl Medical Emergencies . Who to Call and When: Medical Emergencies: If at any time you feel your situation is an emergency, please call 911 immediately. . Non-Emergent Contact Non-Emergency issues call your: Primary Care Provider . . "Provider Documentation" section prepared by Blank De León. VTE Core Measure Inpt VTE Proph given/why not?: Unfractionated heparin SQ
--- NOTE | 2016-10-21 20:00 | Discharge Summary ---
Discharge Summary Date of Service Oct 21, 2016. Discharge Summary Admission Date: Oct 13, 2016 at 14:59 Discharge Date: Oct 21, 2016 Discharge Disposition: Acute care facility Principal Diagnosis: Gastric Outlet Obstruction Carcinomatosis Admission Information HPI (per Admitting provider): Patient seen and examined. 76 year old male with PMHx of CAD s/p CABG, Stents, COPD, PAF, CKd stage 3, GERD, h/o Colon CA and H/o CVA presents to the ED complaining of stomach pain x 1 month. Patient reports for about a month he has had generalized sharp 10/10 abdominal pain. He states sometimes has pain radiating into his chest and reports a known history of chronic postprandial angina. He saw his PCP last week and KUB showed stool in the colon. Patient took laxatives which initially helped with his symptoms but he states over the last 2-3 days he started to have vomiting as well and his abdomen became distended. He reports his last BM was two days ago. He denies fevers, chills, URI symptoms, chest pain out of the ordinary, SOB, hematemesis, diarrhea, dysuria, calf pain and edema. In the ED VS were stable, he had mild leukocytosis , crea was bumped. CT A/P showed nodular infiltrates in the omentum and possible gastric outlet obstruction. NG tube was placed and drained >1L of brown gastric contents. GI was consulted and will likely scope patient tomorrow. He will be admitted for further workup and treatment. Physical Exam (per Admitting): General Appearance: + pertinent finding (Pleasant Wd/WN 76 year old male lying in bed in NAD with friend at bedside ) Head: normocephalic, atraumatic Eyes: PERRL, EOMI, sclerae normal ENT: pharynx normal, + pertinent finding (ng tube in place, blood from nares ) Neck: supple, thyroid normal Respiratory/Chest: chest non-tender, lungs clear (trace wheezes), normal breath sounds, no respiratory distress, no accessory muscle use Cardiovascular: regular rate, rhythm, no edema, no gallop, no JVD, no murmur , normal peripheral pulses Abdomen/GI: + pertinent finding (hypoactive BS, distended, mild tenderness ) Back: normal inspection, no muscle spasm Extremities/Musculoskelatal: no calf tenderness, normal capillary refill, no pedal edema Neurologic/Psych: alert, oriented x 3, + pertinent finding (no focal deficits noted on gross exam ) Skin: normal color, warm/dry, no rash Lymphatic: no adenopathy Hospital Course This is a 76 year old male with PMH of CAD s/p CABG and stents, Paroxysmal Atrial Fibrillation, hx. of colon carcinoma, CKD stage 3, COPD, hx. of CVA presents with significant abdominal pain, nausea/vomiting and found to have gastric outlet obstruction Gastric Outlet Obstruction 10/21 Gastric outlet obstruction gastric pathology - no cancer noted, severe gastritis seen continue PPI ggt EGD done today - not able to be dilated will plan to transfer to [place] 10/20 CT abdomen/pelvis showed gastric dilatation and likely gastric outlet obstruction EGD was performed on 10/15 - showing severe gastritis patient is on Protonix drip currently only ice chips and TPN NGT no longer in place plan is for repeat EGD in AM and possible dilatation as a temporary solution for gastric outlet obstruction Nodular Infiltration of Omentum 10/21 path = metastatic adenocarcinoma 10/20 CT guided biopsy performed pathology report suggests metastatic adenocarcinoma patient should have a colonoscopy - I spoke with patient regarding this and he still seems hesitant Acute Kidney Injury superimposed on CKD stage 3 - back to baseline creat on admission = 1.8 significant dehydration secondary to nausea/vomiting, decreased PO intake/ gastric outlet obstruction now resolved after being given fluids and TPN Hypokalemia - resolved DM2 hold oral agents continue insulin sliding scale Hx. of Colon CA s/p resection GERD currently on Protonix drip transition back to oral Protonix when okay with GI DVT ppx subq heparin FULL CODE Total time spent on discharge = 55 minutes This includes examination of the patient, discharge planning, medication reconciliation, and communication with other providers. Discharge Instructions To be transferred to [place] for further GI evaluation
[2016-10-21] MEDS: FLUTICASONE PROPIONATE NA SPR 16 GM BTL SCH (21:39)
[2016-10-22] MEDS: MoRPHine SULFATE 2 MG/ML CARP IV PRN ×3 (00:34→09:30)
[2016-10-22 03:04] VITALS: BP 129/76; PULSE 85; TEMP 36.4; O2SAT 93
[2016-10-22] MEDS: PANTOprazole INJ 40 MG in DEXTROSE 5% 100ML IV SCH ×3 (03:22→12:48)
[2016-10-22] MEDS: HEPARIN SOD 5000 UNIT/0.5 ML CARP SQ SCH ×2 (05:57→13:55)
[2016-10-22] MEDS: INSULIN ASPART 100 UNITS/ML 3 ML PEN SC SCH ×2 (05:58→12:46)
[2016-10-22 06:11] VITALS: PULSE 87; O2SAT 94
[2016-10-22] MEDS: ALBUT/IPRATROP 3MG/0.5MG NEB 3 ML VIAL INH SCH ×2 (06:11→11:12)
[2016-10-22 06:22] LABS: BUN/CREATININE RATIO 27.9 (10-20); CALCIUM 8.4 mg/dl (8.5-10.1); MAGNESIUM 1.9 mg/dl (1.8-2.4); POTASSIUM 4.6 mmol/L (3.5-5.1)
[2016-10-22 06:25] LABS: PHOSPHORUS 3.5 mg/dl (2.5-4.9)
[2016-10-22 07:19] VITALS: BP 135/81; PULSE 82; TEMP 36.9; O2SAT 96
[2016-10-22] MEDS: ONDANSETRON INJ 2 MG/ML 2 ML VIAL IV PRN (07:43)
--- NOTE | 2016-10-22 08:40 | Anesthesiology Progress Note ---
Anesthesia Post Op Note Date & Time Oct 22, 2016 at 08:39 Vital Signs Pain Intensity: 10.0 Vital Signs Past 12 Hours Date Time Temp Pulse Resp B/P Pulse Ox O2 Delivery O2 Flow Rate FiO2 10/22/16 07:30 Room Air 10/22/16 07:19 36.9 82 19 135/81 96 Room Air 10/22/16 06:11 87 18 94 Nasal Cannula 2.0 10/22/16 03:04 36.4 85 16 129/76 93 Room Air 10/22/16 00:00 Room Air 10/21/16 23:52 37.3 88 17 131/67 95 Room Air Notes Mental Status: alert / awake / arousable, participated in evaluation Pt Amnestic to Procedure: Yes Nausea / Vomiting: adequately controlled Pain: adequately controlled Airway Patency, RR, SpO2: stable & adequate BP & HR: stable & adequate Hydration State: stable & adequate Anesthetic Complications: no major complications apparent
--- NOTE | 2016-10-22 11:03 | Progress Note ---
Progress Note Date of Service Oct 22, 2016. Progress Note I saw Mr. Leonardo in room 352 today He has gastric outlet obstruction in the setting of carcinomatosis Currently NPO; TPN EGD performed yesterday; failed dilatation EGD pathology - severe gastritis States his pain is still present and does not improve with medications; morphine dose increased to 3mg q3hrs Plan is the same as last evening: transfer to [place] for further management - no beds available at this time
[2016-10-22 11:13] VITALS: PULSE 90; O2SAT 96
[2016-10-22] MEDS ORDERED: MoRPHine SULFATE 4 MG/ML 1 ML CARP\\VIAL IV PRN (12:00)
[2016-10-22 13:19] VITALS: BP 105/67; PULSE 98; TEMP 36.9; O2SAT 93
[2016-10-22 14:33] VITALS: BP 105/67; PULSE 98; TEMP 36.9; O2SAT 93
[2016-10-22] MEDS ORDERED: CUSTOM CENTRAL PN 1 BAG IV SCH (16:00)
--- NOTE | 2016-12-23 10:58 | GI REPORT ---
Procedure Date: 10/21/2016 3:01 PM Procedure: Upper GI endoscopy Indications: Follow-up of prepyloric stenosis, For therapy of prepyloric stenosis, Abnormal CT of the GI tract, Nausea with vomiting; GOO - resumably secondary to extrinsic compression from carcinomatosis (met adenoCa) - has h/o colon cancer Medicines: See the Anesthesia note for documentation of the administered medications Complications: No immediate complications. Estimated blood loss: Minimal. Estimated Blood Loss: Estimated blood loss was minimal. Procedure: Pre-Anesthesia Assessment: - Prior to the procedure, a History and Physical was performed, and patient medications, allergies and sensitivities were reviewed. The patient's tolerance of previous anesthesia was reviewed. - The risks and benefits of the procedure and the sedation options and risks were discussed with the patient. All questions were answered and informed consent was obtained. - Patient identification and proposed procedure were verified prior to the procedure by the physician and the nurse. The procedure was verified in the pre-procedure area in the procedure room. - Mental Status Examination: alert and oriented. Airway Examination: normal oropharyngeal airway and neck mobility. Respiratory Examination: clear to auscultation. CV Examination: normal. Abdominal Examination: bowel sounds present, abdomen soft and non-tender, no masses or organomegaly noted. - ASA Grade Assessment: IV - A patient with severe systemic disease that is a constant threat to life. After obtaining informed consent, the endoscope was passed under direct vision. Throughout the procedure, the patient's blood pressure, pulse, and oxygen saturations were monitored continuously. The scope was introduced through the mouth, and advanced to the pylorus. The upper GI endoscopy was accomplished without difficulty. The patient tolerated the procedure well. Findings: The esophagus was normal. A severe stenosis was found at the pylorus. This was non-traversed. A TTS dilator was passed through the scope. Dilation with a 10-11-12 mm pyloric balloon dilator was performed. Biopsies were taken with a cold forceps for histology. Verification of patient identification for the specimen was done by the physician and nurse using the patient's name and date. Estimated blood loss was minimal. Impression: - Normal esophagus. 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 Attempts made at dilation with balloon - dilated to 12mm but unable to pass scope secondary to severe resistance and anatomic deformity. Dilated. Biopsied. Recommendation: - Await pathology results. - Consider surgical evaluation for possible laparoscopy vs [place] [facility] - Return patient to hospital [facility] for ongoing care. Michelle Lim D.O. Michelle Lim, 12/23/2016 9:34:51 AM This report has been signed electronically. Note Initiated On: 10/21/2016 3:01 PM I attest to the content of the Intraoperative Record and orders documented therein, exceptions below
== END 2016-10-22 15:18 | disposition short-term general hospital (02) | DRG 844 ==
LOC: ENRESERVTM → ENRESERVDT → C.EDB 10:56 → C.MSW 14:59 → EDBEDREQ 15:06
PROVIDERS: ADMIT Internal Medicine; ATTEND Family Medicine
PROC: 0DB78ZX Excision of Stomach, Pylorus, Via Natural or Artificial Opening Endoscopic, Diagnostic (ICD-10-PCS; principal; 2016-10-14 08:15)
PROC: 0DB68ZX Excision of Stomach, Via Natural or Artificial Opening Endoscopic, Diagnostic (ICD-10-PCS; principal; 2016-10-14 08:15)
PROC: 0D778ZZ Dilation of Stomach, Pylorus, Via Natural or Artificial Opening Endoscopic (ICD-10-PCS; principal; 2016-10-14 08:15)
DX: C80.0 Disseminated malignant neoplasm, unspecified (principal); K31.1 Adult hypertrophic pyloric stenosis; N17.9 Acute kidney failure, unspecified; Z95.5 Presence of coronary angioplasty implant and graft; Z95.1 Presence of aortocoronary bypass graft; K21.0 Gastro-esophageal reflux disease with esophagitis; N18.3 Chronic kidney disease, stage 3 (moderate); Z86.73 Personal history of transient ischemic attack (TIA), and cerebral infarction without residual deficits; I25.119 Atherosclerotic heart disease of native coronary artery with unspecified angina pectoris; J44.9 Chronic obstructive pulmonary disease, unspecified; I12.9 Hypertensive chronic kidney disease with stage 1 through stage 4 chronic kidney disease, or unspecified chronic kidney disease; E11.22 Type 2 diabetes mellitus with diabetic chronic kidney disease; Z90.49 Acquired absence of other specified parts of digestive tract; Z82.49 Family history of ischemic heart disease and other diseases of the circulatory system; Z88.8 Allergy status to other drugs, medicaments and biological substances; Z99.81 Dependence on supplemental oxygen; Z79.82 Long term (current) use of aspirin; Z79.899 Other long term (current) drug therapy; E87.6 Hypokalemia; I48.0 Paroxysmal atrial fibrillation; I25.2 Old myocardial infarction; E78.5 Hyperlipidemia, unspecified; K22.2 Esophageal obstruction; K29.70 Gastritis, unspecified, without bleeding; K29.80 Duodenitis without bleeding; E86.0 Dehydration; D72.829 Elevated white blood cell count, unspecified; Z79.02 Long term (current) use of antithrombotics/antiplatelets; Z85.038 Personal history of other malignant neoplasm of large intestine; Z86.010 Personal history of colon polyps

== ENCOUNTER 2016-11-01 08:36 | Inpatient (IN) | payer OTHER ==
[~2016-11-01] VITALS: Ht 172.7 cm; Wt 101.8 kg
[~2016-11-01 08:36] MED LIST: AMLO2.5T PO; ASCA500 PO; ASPI81TA28 PO; CLOP1TAB15 PO; FLUT0.15; FRS/40 PO; GLIM1TAB2 PO; INS/25 PO; IPRA1AER2 INH; IPRASOL4 INH; ISOS60TA2 PO; METO25TA56 PO; NTRGSL/4 UT; OXGN; PANT40TA PO; UMEC1AER PO
[2016-11-01] MEDS ORDERED: AMIODARONE HCL INJ 50 MG/ML 3 ML VIAL ONE (08:56)
[2016-11-01] MEDS ORDERED: AMIODARONE 150MG / 100ML D5W ONE ×2 (09:00→09:34)
--- NOTE | 2016-11-01 09:09 | EMERGENCY ROOM VISIT NOTE ---
History Report prepared by Rimma: Erlin Mohan Under the Supervision of: Dr. Nando Ann M.D. First contact with patient: 08:45 Stated Complaint: ALTERED LEVEL OF CONSCIOUSNESS History of Present Illness The patient is a 76 year old male who presents to the Emergency Room via ALS after being found unresponsive by his family prior to arrival. Per nursing staff , the family found the patient in his chair, unresponsive and nonverbal. The patient has a history of colon cancer and complains of abdominal discomfort. Per patient's family, the patient started to complain of abdominal pain in the middle of the night. The patient's HPI is limited due to AMS. Source of History: patient, nursing staff History Limited By: AMS Onset: prior to arrival Position: other (global) Associated Symptoms: + abdominal pain Note: Other associated symptoms: altered mental status, nonverbal. Review of Systems The patient's ROS is limited due to AMS. Past Medical & Surgical Medical Problems: (1) Altered mental status (2) CAD (coronary artery disease) (3) Colon cancer (4) Colon cancer (5) COPD (chronic obstructive pulmonary disease) (6) COPD (chronic obstructive pulmonary disease) (7) GERD (gastroesophageal reflux disease) (8) Heart disease (9) HTN (hypertension) Surgical Problems: (1) History of colon resection (2) History of esophagogastroduodenoscopy (EGD) (3) History of partial colectomy (4) S/P CABG x 3 (5) Stented coronary artery Family History FH: heart disease Hypertension Social History Smoking Status: Never Smoker Alcohol Use: none Marital Status: , in relationship Occupation Status: retired Current/Historical Medications Scheduled Albuterol Hfa (Ventolin Hfa), 2-4 PUFFS INH Q6H Ipratropium-Albuterol (Combivent Respimat), 1 PUFFS INH QID Scheduled PRN Ipratropium-Albuterol (Duoneb), 1 TREATMENT INH Q6 PRN for Cough Ondansetron Hcl (Zofran), 4 MG PO for Nausea Miscellaneous Medications Morphine Sulfate (Morphine Sulfate), Unknown Dose Allergies Coded Allergies: Atorvastatin (Unverified Allergy, Unknown, UNKNOWN, 11/01/16) Levofloxacin (Unverified Allergy, Unknown, UNKNOWN, 11/01/16) Simvastatin (Unverified Allergy, Unknown, UNKNOWN, 11/01/16) Physical Exam Vital Signs Date Time Temp Pulse Resp B/P Pulse Ox O2 Delivery O2 Flow Rate FiO2 11/01/16 10:01 101 32 89/56 97 Non-Rebreather 11/01/16 09:40 106 110/73 98 11/01/16 09:35 97 97/75 11/01/16 09:31 116 90/34 96 11/01/16 09:29 133 73/56 100 11/01/16 09:26 137 65/33 98 11/01/16 09:25 150 11/01/16 09:24 136 59/49 11/01/16 09:16 101 22 113/52 95 Non-Rebreather 11/01/16 09:11 104 11/01/16 09:06 106 28 110/51 96 Non-Rebreather 11/01/16 08:42 196 11/01/16 08:41 94 Non-Rebreather 15.0 11/01/16 08:40 72 Room Air 11/01/16 08:40 38.8 126 33 98/63 72 Room Air Physical Exam GENERAL: Patient awake, alert, oriented x 3. Patient follows commands. Patient does not appear toxic. Patient is adequately hydrated and well- nourished. SKIN: No erythema, pallor, cyanosis or rash HEENT: Normal head, pupils equal, reactive to light and accommodation. Ears normal. Oral cavity and posterior pharynx appear normal. Neck: Without adenopathy, no neck vein distention. LUNGS: Relatively clear to auscultation. HEART: Irregular regular rhythm. No murmurs. No gallops. No rubs ABDOMEN: Markedly distended, RUQ tube, generalized tenderness. EXTREMITIES: No signs of trauma. No pedal or pretibial edema. No calf or thigh tenderness. NEUROLOGIC: Cranial nerves II-XII within normal limits. No gross motor sensory function deficits. Medical Decision & Procedures ER Provider Diagnostic Interpretation: X ray results are stated below per my interpretation and the radiologist's interpretation. CHEST ONE VIEW PORTABLE CLINICAL HISTORY: Shortness of breath. COMPARISON STUDY: Chest radiograph October 16, 2016. FINDINGS: Lucency under the hemidiaphragms is consistent with pneumoperitoneum. Bibasilar opacities favor atelectasis. There are median sternotomy wires. Moderate cardiomegaly is unchanged. There is no radiographic evidence of pulmonary edema. There is no pneumothorax. IMPRESSION: 1. Pneumoperitoneum which could be correlated with recent procedural history. In the absence of recent intervention, the findings are worrisome for a perforated hollow viscus. Discussed with Dr. Ann at time of dictation. 2. Bibasilar opacities which favor atelectasis. Electronically signed by: Jace Brown M.D. 11/01/2016 9:22 AM Dictated Date/Time: 11/01/2016 9:15 AM Laboratory Results 11/01/16 09:05 Red Blood Count 5.36, Mean Corpuscular Volume 88.4, Mean Corpuscular Hemoglobin 29.1, Mean Corpuscular Hemoglobin Concent 32.9, Mean Platelet Volume 10.8, Neutrophils (%) (Auto) 91.6, Lymphocytes (%) (Auto) 2.7, Monocytes (%) (Auto) 5.3, Eosinophils (%) (Auto) 0.0, Basophils (%) (Auto) 0.1, Neutrophils # (Auto) 20.41, Lymphocytes # (Auto) 0.61, Monocytes # (Auto) 1.18, Eosinophils # (Auto) 0.01, Basophils # (Auto) 0.02 11/01/16 09:05 Test 11/01/16 09:05 White Blood Count 22.30 K/uL (4.8-10.8) Red Blood Count 5.36 M/uL (4.7-6.1) Hemoglobin 15.6 g/dL (14.0-18.0) Hematocrit 47.4 % (42-52) Mean Corpuscular Volume 88.4 fL (80-100) Mean Corpuscular Hemoglobin 29.1 pg (25-34) Mean Corpuscular Hemoglobin Concent 32.9 g/dl (32-36) Platelet Count 273 K/uL (130-400) Mean Platelet Volume 10.8 fL (7.4-10.4) Neutrophils (%) (Auto) 91.6 % Lymphocytes (%) (Auto) 2.7 % Monocytes (%) (Auto) 5.3 % Eosinophils (%) (Auto) 0.0 % Basophils (%) (Auto) 0.1 % Neutrophils # (Auto) 20.41 K/uL (1.4-6.5) Lymphocytes # (Auto) 0.61 K/uL (1.2-3.4) Monocytes # (Auto) 1.18 K/uL (0.11-0.59) Eosinophils # (Auto) 0.01 K/uL (0-0.5) Basophils # (Auto) 0.02 K/uL (0-0.2) RDW Standard Deviation 47.7 fL (36.4-46.3) RDW Coefficient of Variation 15.0 % (11.5-14.5) Immature Granulocyte % (Auto) 0.3 % Immature Granulocyte # (Auto) 0.07 K/uL (0.00-0.02) Nucleated RBC Absolute Count (auto) 0.04 K/uL (0-0) Nucleated Red Blood Cells % 0.2 % Prothrombin Time 13.1 SECONDS (9.0-12.0) Prothromb Time International Ratio 1.2 (0.9-1.1) Activated Partial Thromboplast Time 26.4 SECONDS (21.0-31.0) Partial Thromboplastin Ratio 1.0 Anion Gap 15.0 mmol/L (3-11) Est Creatinine Clear Calc Drug Dose 29.5 ml/min Estimated GFR () 28.9 Estimated GFR (Non- 24.9 BUN/Creatinine Ratio 19.7 (10-20) Osmolality 331 mOsm/kg (280-300) Calcium Level 8.5 mg/dl (8.5-10.1) Total Bilirubin 3.0 mg/dl (0.2-1) Aspartate Amino Transf (AST/SGOT) 62 U/L (15-37) Alanine Aminotransferase (ALT/SGPT) 58 U/L (12-78) Alkaline Phosphatase 166 U/L (45-117) Ammonia < 10.0 umol/L (11-32) Total Protein 6.4 gm/dl (6.4-8.2) Albumin 2.4 gm/dl (3.4-5.0) Globulin 4.0 gm/dl (2.5-4.0) Albumin/Globulin Ratio 0.6 (0.9-2) Laboratory results as stated above per my review. Medications Administered Medications (Trade) Dose Ordered Sig/Kristine Route Start Time Stop Time Status Last Admin Dose Admin Amiodarone HCL/ Dextrose (Nexterone / D5w) 150 mg STK-MED ONCE .ROUTE 11/01/16 09:00 11/01/16 09:01 DC 11/01/16 09:00 150 MG Amiodarone HCL/ Dextrose 150 mg 150 mg STK-MED ONCE .ROUTE 11/01/16 09:34 11/01/16 09:35 DC 11/01/16 09:34 150 MG Sodium Chloride (Nss 500ml) 500 ml @ 999 mls/hr Q31M STAT IV 11/01/16 09:30 11/01/16 10:00 DC 11/01/16 09:39 999 MLS/HR Amiodarone HCL/ Dextrose (Nexterone / D5w) 360 mg UD STAT IV 11/01/16 09:30 11/01/16 09:32 DC 11/01/16 09:44 360 MG ECG Indication: altered mental status Rate (beats per minute): 105 Rhythm: sinus tachycardia Findings: PVC (multiple PVCs), RBBB, other (episodes of v-tach) Change: Repeat EKG: Sinus rhythm with a rate of 98, PVCs, some PACs, right bundle branch block. ED Course 0839: Past medical records reviewed. The patient was evaluated in room B1. A complete history and physical examination was performed. 0900: Ordered Nexterone / D5w 150 mg .ROUTE. 0901: At this time, I discussed the patient's treatment with the patient's family. They stated that the patient had made it clear and had priorly voiced requests not to have any aggressive therapy including CPR or ventilator assisted respirations. 0918: At this time, I discussed the patient's case with Dr. Brown - [facility] and we both realized that the patient's chest x-ray shows air under the diaphragm which is consistent with pneumoperitoneum. 0930: Ordered Nexterone / D5w 360 mg IV, NSS 500 ml @ 999 mls/hr IV. 0934: Ordered Nexterone / D5w 150 mg .ROUTE 0936: At this time, I discussed the patient's case with Dr. Carpio - Hospitalist Wendy and he agreed to accept the patient for further evaluation. 1005: At this time, I reevaluated the patient and he was resting. The family still states that they do not want any aggressive therapy for the patient. Medical Decision Differential diagnoses include metastatic colon cancer, ascites, CHF, pulmonary edema, ventricular tachycardia, or metabolic disorder. The patient has a prior history of metastatic colon cancer. The patient was unable to provide any history due to her altered mental status. Multiple labs, EKG, urinalysis and imaging were obtained. Please see above. The patient has marked distention of her abdomen with what appears to be ascites. Multiple labs , EKG and imaging were obtained. The patient had multiple arrhythmias while here in the ED requiring treatment with amiodarone. The patient's arrhythmia improved. Patient's vital signs improved. I explained to the family that the patient has a very poor prognosis. The patient's family was clear that the patient did not want resuscitative measures performed. The patient was made a DO NOT RESUSCITATE. I discussed care with multiple family members and with the hospitalist. Consults Time Called: 912 Consulting Physician: Dr. Brown - [facility] Returned Call: [phone] At this time, I discussed the patient's case with Dr. Brown and we both realized that the patient's chest x-ray shows air under the diaphragm which is consistent with pneumoperitoneum. Additional Consults: Time Called: 930 Consulted Physician: Dr. Carpio - [facility] Returned Call: [phone] Additional Comments: At this time, I discussed the patient's case with Dr. Carpio - [facility] and he agreed to accept the patient for further evaluation. Impression Primary Impression: Metastasis from colon cancer Additional Impressions: Ascites Pulmonary edema Pneumoperitoneum Ventricular tachycardia Critical Care I have personally spent greater than 30 minutes of critical care time in the direct management of this patient. This includes bedside care, interpretation of diagnostic studies, and testing, discussion with consultants, patient, and family members, and other required patient management activities. This 30 minutes is in excess of all separately billable procedures. Scribe Attestation The scribe's documentation has been prepared under my direction and personally reviewed by me in its entirety. I confirm that the note above accurately reflects all work, treatment, procedures, and medical decision making performed by me. Departure Information Dispostion Being Evaluated By Hospitalist Mildred Busby M.D. (PCP) Problem Qualifiers
[2016-11-01] MEDS ORDERED: AMIODARONE HCL INJ 50 MG/ML 3 ML VIAL IV STA (09:22)
[2016-11-01] MEDS ORDERED: FUROSEMIDE 40 MG/4 ML VIAL IV STA (09:22)
--- NOTE | 2016-11-01 09:24 | DIAGNOSTIC IMAGING REPORT ---
CHEST ONE VIEW PORTABLE CLINICAL HISTORY: Shortness of breath. COMPARISON STUDY: Chest radiograph October 16, 2016. FINDINGS: Lucency under the hemidiaphragms is consistent with pneumoperitoneum. Bibasilar opacities favor atelectasis. There are median sternotomy wires. Moderate cardiomegaly is unchanged. There is no radiographic evidence of pulmonary edema. There is no pneumothorax. IMPRESSION: 1. Pneumoperitoneum which could be correlated with recent procedural history. In the absence of recent intervention, the findings are worrisome for a perforated hollow viscus. Discussed with Dr. Ann at time of dictation. 2. Bibasilar opacities which favor atelectasis. Electronically signed by: Jace Brown M.D. 11/01/2016 9:22 AM Dictated Date/Time: 11/01/2016 9:15 AM
[2016-11-01] MEDS ORDERED: ONDA4TAB46 PO (09:29)
[2016-11-01] MEDS ORDERED: [UNRECOGNIZED DRUG - CODE] (09:29)
[2016-11-01] MEDS ORDERED: VNTHFA/IN INH (09:29)
[2016-11-01 09:30] LABS: HEMATOCRIT 47.4 % (42-52); MEAN CELL VOLUME 88.4 fL (80-100); MEAN CORPUSCULAR HEMOGLOBIN 29.1 pg (25-34); MEAN CORPUSCULAR HGB CONC 32.9 g/dl (32-36); MEAN PLATELET VOLUME 10.8 fL (7.4-10.4); PLATELET COUNT 273 K/uL (130-400); RED BLOOD COUNT 5.36 M/uL (4.7-6.1)
[2016-11-01] MEDS ORDERED: SODIUM CHLORIDE 0.9% 500ML 500 ML IV STA (09:30)
[2016-11-01] MEDS ORDERED: AMIODARONE 360MG / 200ML D5W IV STA (09:30)
[2016-11-01 09:46] LABS: INR 1.2 (0.9-1.1); PROTHROMBIN TIME (PATIENT) 13.1 SECONDS (9.0-12.0)
[2016-11-01 09:49] LABS: BUN/CREATININE RATIO 19.7 (10-20); CALCIUM 8.5 mg/dl (8.5-10.1); CREATININE 2.4 mg/dl (0.60-1.40); POTASSIUM 3.4 mmol/L (3.5-5.1)
[2016-11-01 09:52] LABS: BASO % 0.1 %; BASO ABS # 0.02 K/uL (0-0.2); COMPLETE YES; IG% 0.3 %; LYMPH % 2.7 %; LYMPH ABS # 0.61 K/uL (1.2-3.4); MONO % 5.3 %; NEUT % 91.6 %
[2016-11-01 09:59] LABS: ALB/GLOB RATIO 0.6 (0.9-2)
[2016-11-01] MEDS ORDERED: PIPERACILLIN/TAZOBACTAM 3.375 GM/100ML D5W IV STA (09:59)
[2016-11-01] MEDS ORDERED: PIPERACILL/TAZOBAC IV 3.375 GM in DEXTROSE 5% 100ML IV STA (10:04)
[2016-11-01] MEDS ORDERED: VANCOMYCIN INJ 1,000 MG in SODIUM CHLORIDE 0.9% 250ML 250 ML IV STA (10:05)
[2016-11-01 13:08] VITALS: BP 81/38; PULSE 122; TEMP 36.8; O2SAT 95; Ht 172.7 cm; Wt 101.8 kg
[2016-11-01] MEDS ORDERED: CONSULT PHARMACY STA (13:20)
[2016-11-01] MEDS ORDERED: ACETAMINOPHEN 325 MG TAB PO PRN (13:30)
[2016-11-01] MEDS ORDERED: PIPERACILL/TAZOBAC CONSULT ACTIVE PRN (13:30)
[2016-11-01] MEDS ORDERED: VANCOMYCIN CONSULT ACTIVE PRN (13:30)
[2016-11-01 14:49] VITALS: BP 79/51; PULSE 90; TEMP 37; O2SAT 97
[2016-11-01 15:28] LABS: URINE APPEARANCE CLOUDY (CLEAR); URINE COLOR DK YELLOW; URINE EPITHELIAL CELL AUTO >30 /lpf (0-5); URINE NITRITE POS (NEG); URINE SPECIFIC GRAVITY 1.024 (1.000-1.030); UROBILINOGEN NEG (NEG); ZZURINE CULT IF INDIC CATH NO
[2016-11-01 15:29] LABS: MANUAL MICROSCOPIC REQUIRED? NO; REVIEW REQ? YES
[2016-11-01 15:36] LABS: URINE BILIRUBIN NEG (NEG)
[2016-11-01 16:12] VITALS: O2SAT 97
--- NOTE | 2016-11-01 16:20 | Pharmacy Progress Note ---
Pharmacy Antibiotic Consult Date of Service: Nov 01, 2016. Pharmacy Dosing Scope Pharmacy is consulted to initiate Vancomycin IV dosing therapy, order appropriate labs and adjust drug dose/frequency for Sepsis. Subjective The patient is a 76 year old male admitted on Nov 01, 2016 at 10:01. Objective Height (Feet): 5 Height (Inches): 8.00 Weight (Kilograms): 103.200 Lab Results (24hrs): Laboratory Tests Test 11/01/16 09:05 BUN/Creatinine Ratio 19.7 Blood Urea Nitrogen 47 mg/dl Creatinine 2.40 mg/dl White Blood Count 22.30 K/uL Red Blood Count 5.36 M/uL Hemoglobin 15.6 g/dL Hematocrit 47.4 % Mean Corpuscular Volume 88.4 fL Mean Corpuscular Hemoglobin 29.1 pg Mean Corpuscular Hemoglobin Concent 32.9 g/dl Platelet Count 273 K/uL Mean Platelet Volume 10.8 fL Neutrophils (%) (Auto) 91.6 % Lymphocytes (%) (Auto) 2.7 % Monocytes (%) (Auto) 5.3 % Eosinophils (%) (Auto) 0.0 % Basophils (%) (Auto) 0.1 % Neutrophils # (Auto) 20.41 K/uL Lymphocytes # (Auto) 0.61 K/uL Monocytes # (Auto) 1.18 K/uL Eosinophils # (Auto) 0.01 K/uL Basophils # (Auto) 0.02 K/uL Micro Results: Blood cultures pending x 2. Recent Pertinent Medications * Also on Zosyn 3.375 gm IV q8h Assessment & Plan * Vancomycin 1 gm IV x 1 was given at 1018 today then a second dose of Vanco 1 gm is ordered to be given at 2200 tonight. This will give the patient a total of 20 mg/kg of Vancomycin. * Estimated t1/2 = 27 hrs due to Scr = 2.4, Crcl = 29.5. * Expecting renal function to improve in around 24 hrs before we start a maintenance dose of Vancomycin. * A random Vanco level has been ordered for tomorrow AM with AM labs. * Based on this level, and the renal function, further doses will be determined. * Goal trough level estimate: between 15 - 20 mcg/mL for Sepsis. Pharmacy will continue to follow and will adjust dose/frequency as necessary. Thank you
[2016-11-01] MEDS: PIPERACILL/TAZOBAC IV 3.375 GM in DEXTROSE 5% 100ML IV SCH (16:37)
--- NOTE | 2016-11-01 17:20 | History and Physical ---
History & Physical Date & Time of Service: Nov 01, 2016 at 17:19 Chief Complaint: Altered Mental Status Primary Care Physician: Mildred Quiroga M.D. History of Present Illness Source: family, hospital records 76 year old male with known past medical history of Stage IV Colon cancer s/p partial colectomy, CAD s/p CABG, COPD, GERD, HTN presents to the Emergency Room via ALS after being found unresponsive by his family prior to arrival. Per nursing staff, the family found the patient in his chair, unresponsive and nonverbal. The patient has a history of colon cancer and complains of abdominal discomfort. Per patient's family, the patient started to complain of abdominal pain in the middle of the night. The patient's HPI is limited due to AMS. Was admitted to [facility] in september. Past Medical/Surgical History Medical Problems: (1) CAD (coronary artery disease) Status: Chronic (2) Colon cancer Status: Resolved (3) Colon cancer Status: Chronic (4) COPD (chronic obstructive pulmonary disease) Status: Chronic (5) COPD (chronic obstructive pulmonary disease) Status: Chronic (6) GERD (gastroesophageal reflux disease) Status: Chronic (7) Heart disease Status: Resolved (8) HTN (hypertension) Status: Chronic Surgical Problems: (1) History of colon resection Status: Resolved (2) History of esophagogastroduodenoscopy (EGD) Status: Chronic (3) History of partial colectomy Status: Chronic (4) S/P CABG x 3 Status: Chronic (5) Stented coronary artery Status: Chronic Family History FH: heart disease Hypertension Social History Smoking Status: Unknown if Ever Smoked Marital Status: , in relationship Housing status: lives alone Occupational Status: retired Allergies Coded Allergies: Atorvastatin (Unverified Allergy, Unknown, UNKNOWN, 11/01/16) Levofloxacin (Unverified Allergy, Unknown, UNKNOWN, 11/01/16) Simvastatin (Unverified Allergy, Unknown, UNKNOWN, 11/01/16) Home Medications Scheduled Albuterol Hfa (Ventolin Hfa), 2-4 PUFFS INH Q6H Ipratropium-Albuterol (Combivent Respimat), 1 PUFFS INH QID Scheduled PRN Ipratropium-Albuterol (Duoneb), 1 TREATMENT INH Q6 PRN for Cough Ondansetron Hcl (Zofran), 4 MG PO for Nausea Miscellaneous Medications Morphine Sulfate (Morphine Sulfate), Unknown Dose Review of Systems The patient's ROS is limited due to AMS. Physical Exam Vital Signs Date Time Temp Pulse Resp B/P Pulse Ox O2 Delivery O2 Flow Rate FiO2 11/01/16 16:12 97 Non-Rebreather 10.0 11/01/16 14:49 37.0 90 15 79/51 97 Non-Rebreather 11/01/16 13:08 36.8 122 26 81/38 95 Non-Rebreather 15.0 11/01/16 10:54 121 100/63 95 Non-Rebreather 11/01/16 10:41 112 28 98/64 98 Non-Rebreather 11/01/16 10:37 121 85/58 96 11/01/16 10:30 106/69 11/01/16 10:26 101 28 90/69 97 Partial Rebreather 11/01/16 10:21 98 24 92/56 98 11/01/16 10:11 121 24 86/54 97 11/01/16 10:01 101 32 89/56 97 Non-Rebreather 11/01/16 09:40 106 110/73 98 11/01/16 09:35 97 97/75 11/01/16 09:31 116 90/34 96 11/01/16 09:29 133 73/56 100 11/01/16 09:26 137 65/33 98 11/01/16 09:25 150 11/01/16 09:24 136 59/49 11/01/16 09:16 101 22 113/52 95 Non-Rebreather 11/01/16 09:11 104 11/01/16 09:06 106 28 110/51 96 Non-Rebreather 11/01/16 08:42 196 11/01/16 08:41 94 Non-Rebreather 15.0 11/01/16 08:40 72 Room Air 11/01/16 08:40 38.8 126 33 98/63 72 Room Air GENERAL: Patient is confused and does not follows command. Patient appear toxic. Patient is poorly nourished and is sick looking. SKIN: No erythema, pallor, cyanosis or rash HEENT: Normal head, pupils equal, reactive to light and accommodation. Ears normal. Oral cavity is dry looking and posterior pharynx appear normal. Neck: Without adenopathy, Midline trachea, no neck vein distention. LUNGS: B/L Moderate air entry, Decreased BS at lung bases B/L. HEART: Irregular regular rhythm. No murmurs. No gallops. No rubs ABDOMEN: Markedly distended, RUQ tube, generalized tenderness on palpation EXTREMITIES: No signs of trauma. No pedal or pretibial edema. No calf or thigh tenderness. NEUROLOGIC: Cranial nerves II-XII within normal limits. No gross motor sensory function deficits. Diagnostics Laboratory Results Results Past 24 Hours Test 11/01/16 09:05 11/01/16 14:15 11/01/16 14:24 11/01/16 14:29 Range/Units White Blood Count 22.30 4.8-10.8 K/uL Red Blood Count 5.36 4.7-6.1 M/uL Hemoglobin 15.6 14.0-18.0 g/dL Hematocrit 47.4 42-52 % Mean Corpuscular Volume 88.4 80-100 fL Mean Corpuscular Hemoglobin 29.1 25-34 pg Mean Corpuscular Hemoglobin Concent 32.9 32-36 g/dl Platelet Count 273 130-400 K/uL Mean Platelet Volume 10.8 7.4-10.4 fL Neutrophils (%) (Auto) 91.6 % Lymphocytes (%) (Auto) 2.7 % Monocytes (%) (Auto) 5.3 % Eosinophils (%) (Auto) 0.0 % Basophils (%) (Auto) 0.1 % Neutrophils # (Auto) 20.41 1.4-6.5 K/uL Lymphocytes # (Auto) 0.61 1.2-3.4 K/uL Monocytes # (Auto) 1.18 0.11-0.59 K/uL Eosinophils # (Auto) 0.01 0-0.5 K/uL Basophils # (Auto) 0.02 0-0.2 K/uL RDW Standard Deviation 47.7 36.4-46.3 fL RDW Coefficient of Variation 15.0 11.5-14.5 % Immature Granulocyte % (Auto) 0.3 % Immature Granulocyte # (Auto) 0.07 0.00-0.02 K/uL Nucleated RBC Absolute Count (auto) 0.04 0-0 K/uL Nucleated Red Blood Cells % 0.2 % Prothrombin Time 13.1 9.0-12.0 SECONDS Prothromb Time International Ratio 1.2 0.9-1.1 Activated Partial Thromboplast Time 26.4 21.0-31.0 SECONDS Partial Thromboplastin Ratio 1.0 Sodium Level 152 136-145 mmol/L Potassium Level 3.4 3.5-5.1 mmol/L Chloride Level 105 98-107 mmol/L Carbon Dioxide Level 32 21-32 mmol/L Anion Gap 15.0 3-11 mmol/L Blood Urea Nitrogen 47 7-18 mg/dl Creatinine 2.40 0.60-1.40 mg/dl Est Creatinine Clear Calc Drug Dose 29.5 ml/min Estimated GFR () 28.9 Estimated GFR (Non- 24.9 BUN/Creatinine Ratio 19.7 10-20 Random Glucose 196 70-99 mg/dl Osmolality 331 280-300 mOsm/kg Lactic Acid Level 3.6 2.4 0.4-2.0 mmol/L Calcium Level 8.5 8.5-10.1 mg/dl Total Bilirubin 3.0 0.2-1 mg/dl Aspartate Amino Transf (AST/SGOT) 62 15-37 U/L Alanine Aminotransferase (ALT/SGPT) 58 12-78 U/L Alkaline Phosphatase 166 45-117 U/L Ammonia < 10.0 11-32 umol/L Troponin I 5.390 5.760 0-0.045 ng/ml Total Protein 6.4 6.4-8.2 gm/dl Albumin 2.4 3.4-5.0 gm/dl Globulin 4.0 2.5-4.0 gm/dl Albumin/Globulin Ratio 0.6 0.9-2 Urine Color DK YELLOW Urine Appearance CLOUDY CLEAR Urine pH 5.0 4.5-7.5 Urine Specific Hodges 1.024 1.000-1.030 Urine Protein 1+ NEG Urine Glucose (UA) NEG NEG Urine Ketones TRACE NEG Urine Occult Blood NEG NEG Urine Nitrite POS NEG Urine Bilirubin NEG NEG Urine Urobilinogen NEG NEG Urine Leukocyte Esterase TRACE NEG Urine WBC (Auto) 1-5 0-5 /hpf Urine RBC (Auto) 0-4 0-4 /hpf Urine Hyaline Casts (Auto) 5-10 0-5 /lpf Urine Epithelial Cells (Auto) >30 0-5 /lpf Urine Bacteria (Auto) NEG NEG Urine Renal Epithelial Cells 0-5 0-5 /lpf Urine Pathogenic Casts 0 /lpf Test 11/01/16 16:45 Range/Units Microbiology Results 11/01/16 Blood Culture, Received Pending 11/01/16 Blood Culture, Received Pending 11/01/16 Urine Culture, Received Pending Diagnostic Radiology CHEST ONE VIEW PORTABLE CLINICAL HISTORY: Shortness of breath. COMPARISON STUDY: Chest radiograph October 16, 2016. FINDINGS: Lucency under the hemidiaphragms is consistent with pneumoperitoneum. Bibasilar opacities favor atelectasis. There are median sternotomy wires. Moderate cardiomegaly is unchanged. There is no radiographic evidence of pulmonary edema. There is no pneumothorax. IMPRESSION: 1. Pneumoperitoneum which could be correlated with recent procedural history. In the absence of recent intervention, the findings are worrisome for a perforated hollow viscus. Discussed with Dr. Ann at time of dictation. 2. Bibasilar opacities which favor atelectasis. Impression Assessment and Plan Sepsis: Came in with Low BP, altered mentation, leukocytosis, Elevate Lactic acid. Has tender abdomen. -Septic work up done -Stated empiric Vancomycin & Zosyn as broad coverage -Follow lactic acid Hypernatremia: Due to volume depletion. -Monitor Sodium level BRISA on CKD Stage III: Baseline Creatinine is around 1.8. Likely due to poor intake, sepsis. -Gentle hydration -Monitor GFR -Avoid any nephrotoxin Recent Gastric Outlet Obstruction: CT abdomen/pelvis showed gastric dilatation and likely gastric outlet obstruction in September 2016. Gastric pathology - no cancer noted, severe gastritis seen. 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 Hypokalemia - Replaced. Check in AM labs. Diabetes Type II: Monitoring BS and continue insulin sliding scale DVT Prophylaxis: Sq heparin Code Status: Discussed with family at bedside and patient is DNR as per his wishes. Requested palliative care consult. Level of Care Telemetry Advanced Directives Existing Living Will: No Existing Power of Sexual Abuse Counsellor: Yes Resuscitation Status DO NOT RESUSCITATE VTE Prophylaxis VTE Risk Assessment Done? Y/N: Yes Risk Level: Moderate Given or contraindicated: Unfractionated heparin SQ
[2016-11-01 17:41] LABS: GASTRIC OCCULT BLOOD POS (NEG); GASTRIC OCCULT BLOOD PH 2
--- NOTE | 2016-11-01 17:54 | Progress Note ---
Progress Note Post Crystalloid Evaluation Date: Nov 01, 2016 Time: 14:45 Subjective patient still not responding well. has been opening eyes intermittently. Remains tachycardic and BP has been around systolic 100. Physical Exam Vital Signs: Vital Signs Date Time Temp Pulse Resp B/P Pulse Ox O2 Delivery O2 Flow Rate FiO2 11/01/16 16:12 97 Non-Rebreather 10.0 11/01/16 14:49 37.0 90 15 79/51 Lungs: chest non-tender, + decreased breath sounds (At bases B/L with rales present), + accessory muscle use, + rales Heart: + tachycardia Peripheral Pulse: Weak Capillary Refill: Delayed (2 seconds or longer) Assessment & Plan Presence of: Severe Sepsis Started gentle hydration. Will monitor closely for volume overload. Patient has received vancomycin and Zosyn. Discussed with nursing staff. Updated the family. Patient is DNR.
[2016-11-01] MEDS: SODIUM CHLORIDE 0.9% 1000ML 1,000 ML IV SCH (18:00)
[2016-11-01] MEDS: FAMOTIDINE IV INJ 20 MG in DEXTROSE 5% 100ML 100 ML IV SCH (18:34)
[2016-11-01 18:55] VITALS: BP 88/49; PULSE 88; TEMP 36.6; O2SAT 96
[2016-11-01] MEDS: HEPARIN SOD 5000 UNIT/0.5 ML CARP SQ SCH (20:59)
[2016-11-01] MEDS ORDERED: VANCOMYCIN INJ 1,000 MG in SODIUM CHLORIDE 0.9% 250ML 250 ML IV ONE (22:00)
[2016-11-01 23:18] VITALS: BP 95/53; PULSE 85; TEMP 37.1; O2SAT 99
[2016-11-02] VITALS (12 sets, daily range): BP systolic 89–117; BP diastolic 49–64; PULSE 83–128; TEMP 36.7–37.2; O2SAT 93–98
[2016-11-02] MEDS: PIPERACILL/TAZOBAC IV 3.375 GM in DEXTROSE 5% 100ML IV SCH ×3 (00:09→15:18)
[2016-11-02] MEDS: MoRPHine SULFATE 2 MG/ML CARP IV PRN ×2 (02:13→18:14)
[2016-11-02] MEDS ORDERED: MoRPHine SULFATE 2 MG/ML CARP IV PRN (02:15)
[2016-11-02] MEDS: FAMOTIDINE IV INJ 20 MG in DEXTROSE 5% 100ML 100 ML IV SCH ×2 (05:40→17:41)
[2016-11-02] MEDS: SODIUM CHLORIDE 0.9% 1000ML 1,000 ML IV SCH ×2 (05:51→20:52)
[2016-11-02 06:27] LABS: BASO % 0.1 %; BASO ABS # 0.01 K/uL (0-0.2); COMPLETE YES; EOS % 0.2 %; HEMATOCRIT 40.8 % (42-52); IG% 0.4 %; LYMPH ABS # 0.95 K/uL (1.2-3.4); MEAN CELL VOLUME 90.7 fL (80-100); MEAN CORPUSCULAR HEMOGLOBIN 29.6 pg (25-34); MEAN CORPUSCULAR HGB CONC 32.6 g/dl (32-36); MEAN PLATELET VOLUME 11.3 fL (7.4-10.4); MONO % 5.9 %; NEUT % 88.4 %; PLATELET COUNT 159 K/uL (130-400); WHITE BLOOD COUNT 18.87 K/uL (4.8-10.8)
[2016-11-02 07:01] LABS: BUN/CREATININE RATIO 20.6 (10-20); CALCIUM 7.4 mg/dl (8.5-10.1); CREATININE 2.9 mg/dl (0.60-1.40); POTASSIUM 3.4 mmol/L (3.5-5.1)
[2016-11-02 07:20] LABS: ALB/GLOB RATIO 0.5 (0.9-2)
--- NOTE | 2016-11-02 07:56 | DIAGNOSTIC IMAGING REPORT ---
SINGLE VIEW CHEST CLINICAL HISTORY: Follow-up pneumoperitoneum. FINDINGS: An AP, portable, upright chest radiograph is compared to study dated 11/01/2016. The examination is degraded by portable technique and patient rotation. The patient is status post midline sternotomy. The heart is enlarged and there is atherosclerotic calcification of the thoracic aorta. The pulmonary vasculature is noncongested. There are bibasilar airspace opacities. Small pleural effusions are suspected. No pneumothorax is seen. The skeletal structures are osteopenic. The bony thorax is grossly intact. A pigtail catheter is partially imaged and left upper quadrant. There is no clear evidence of pneumoperitoneum. IMPRESSION: 1. Cardiomegaly without radiographic evidence of congestive failure. 2. Bibasilar airspace opacities likely represent atelectasis. Small pleural effusions are suspected. Clinical correlation will be required. 3. There is no clear radiographic evidence of pneumoperitoneum. If there is strong clinical concern for pneumoperitoneum a decubitus abdominal radiograph should be performed. Electronically signed by: Roldan Velazquez M.D. 11/02/2016 7:54 AM Dictated Date/Time: 11/02/2016 7:51 AM
[2016-11-02] MEDS: HEPARIN SOD 5000 UNIT/0.5 ML CARP SQ SCH ×2 (08:15→20:54)
--- NOTE | 2016-11-02 09:10 | Gastrointestinal Consultation ---
Gastrointestinal Consultation Date of Consultation: Nov 02, 2016 Consulting Physician: Bob Reason for Consultation: ascites History of Present Illness Patient is a 76 year old male w/ PMH significant of CAD, S/P CABG (1983, 1986) and stenting (2003), COPD, T2DM, AFIB, CKD-3, HTN, hyperlipidemia with a diagnosis of colon cancer S/P colon resection (16 inches removed) 2013 who was recently diagnosed with metastatic adenocarcinoma after lymph node biopsy on . He was transferred to [place] during his last hospital admission and a venting G-tube was placed. GI is consulted today for ascites. Pt is seen and evaluated this morning. Pt and daughter are at bedside and is aiding in history as patient appears weak. Patient denies any pain, he is denying back pain, abdominal pain. Lengthy discussion with patient and family and they are agreeable to procedures for comfort measures only. Pt family reports that the g- tube had been functioning well up until yesterday, when the output was minimal. On arrival to the ED, the G-tube emptied a large amount of fluid was emptied. Per family, his abdomen is much less distended and pain is decreased Past Medical/Surgical History Medical Problems: (1) Acute kidney injury Status: Acute (2) Ascites Status: Acute (3) COPD (chronic obstructive pulmonary disease) Status: Chronic (4) Dehydration Status: Acute (5) Gastric outlet obstruction Status: Acute (6) Metastasis from colon cancer Status: Acute (7) Nausea & vomiting Status: Acute (8) Pneumoperitoneum Status: Acute (9) Pulmonary edema Status: Acute (10) Ventricular tachycardia Status: Acute Past Medical History: CAD, S/P CABG and stenting, COPD, T2DM, AFIB, CKD-3, HTN, hyperlipidemia, stage IV colon CA, carcinomatosis Family History FH: heart disease Hypertension Social History Smoking Status: Unknown if Ever Smoked Alcohol Use: none Marital Status: , in relationship Occupation Status: retired Allergies Coded Allergies: Atorvastatin (Unverified Allergy, Unknown, UNKNOWN, 11/01/16) Levofloxacin (Unverified Allergy, Unknown, UNKNOWN, 11/01/16) Simvastatin (Unverified Allergy, Unknown, UNKNOWN, 11/01/16) Current Medications Home Meds and Scripts Medications Dose Route/Sig Max Daily Dose Days Date Category Zofran (Ondansetron HCl) 4 Mg Tab 4 Mg PO PRN 11/01/16 Reported Ventolin Hfa (Albuterol) 200 Puffs/02547 Mcg Aers 2-4 Puffs INH Q6H 11/01/16 Reported Morphine Sulfate 100 Mg/5 Ml Con Unknown Dose 11/01/16 Reported Duoneb (Ipratropium-Albuterol) 3 Ml Nebu 1 Treatment INH Q6 PRN 10/13/16 Reported Combivent Respimat (Ipratropium-Albuterol) 1 Aer Aer 1 Puffs INH QID 10/13/16 Reported Review of Systems Constitutional: No chills, No fever Respiratory: No shortness of breath Cardiac: No chest pain Abdomen: No nausea, No pain Physical Exam Date Time Temp Pulse Resp B/P Pulse Ox O2 Delivery O2 Flow Rate FiO2 11/02/16 08:08 83 21 89/49 98 Non-Rebreather 13.0 11/02/16 04:00 Non-Rebreather 10.0 11/02/16 03:36 37.1 86 18 96/53 98 High Flow Oxygen 10.0 11/02/16 00:00 Non-Rebreather 10.0 11/01/16 23:18 37.1 85 21 95/53 99 High Flow Oxygen 10.0 11/01/16 20:00 Non-Rebreather 10.0 11/01/16 18:55 36.6 88 16 88/49 96 Nasal Cannula 10.0 11/01/16 16:12 97 Non-Rebreather 10.0 11/01/16 14:49 37.0 90 15 79/51 97 Non-Rebreather 11/01/16 13:08 36.8 122 26 81/38 95 Non-Rebreather 15.0 11/01/16 10:54 121 100/63 95 Non-Rebreather 11/01/16 10:41 112 28 98/64 98 Non-Rebreather 11/01/16 10:37 121 85/58 96 11/01/16 10:30 106/69 11/01/16 10:26 101 28 90/69 97 Partial Rebreather 11/01/16 10:21 98 24 92/56 98 11/01/16 10:11 121 24 86/54 97 11/01/16 10:01 101 32 89/56 97 Non-Rebreather 11/01/16 09:40 106 110/73 98 11/01/16 09:35 97 97/75 11/01/16 09:31 116 90/34 96 11/01/16 09:29 133 73/56 100 11/01/16 09:26 137 65/33 98 11/01/16 09:25 150 11/01/16 09:24 136 59/49 11/01/16 09:16 101 22 113/52 95 Non-Rebreather 11/01/16 09:11 104 General Appearance: no apparent distress Eyes: PERRL ENT: hearing grossly normal Neck: supple Respiratory/Chest: lungs clear Abdomen: normal bowel sounds, no organomegaly, no pulsatile mass, + distended Neurologic/Psych: alert, oriented x 3 Skin: warm/dry, no rash Laboratory Results Last 24 Hours Test 11/01/16 14:15 11/01/16 14:24 11/01/16 14:29 11/01/16 16:45 Urine Color DK YELLOW Urine Appearance CLOUDY Urine pH 5.0 Urine Specific [place] 1.024 Urine Protein 1+ Urine Glucose (UA) NEG Urine Ketones TRACE Urine Occult Blood NEG Urine Nitrite POS Urine Bilirubin NEG Urine Urobilinogen NEG Urine Leukocyte Esterase TRACE Urine WBC (Auto) 1-5 /hpf Urine RBC (Auto) 0-4 /hpf Urine Hyaline Casts (Auto) 5-10 /lpf Urine Epithelial Cells (Auto) >30 /lpf Urine Bacteria (Auto) NEG Urine Renal Epithelial Cells 0-5 /lpf Urine Pathogenic Casts /lpf Lactic Acid Level 2.4 mmol/L Troponin I 5.760 ng/ml Gastric Fluid pH 2 Gastric Fluid Occult Blood POS Test 11/01/16 22:10 11/02/16 06:03 Troponin I 4.680 ng/ml 4.130 ng/ml White Blood Count 18.87 K/uL Red Blood Count 4.50 M/uL Hemoglobin 13.3 g/dL Hematocrit 40.8 % Mean Corpuscular Volume 90.7 fL Mean Corpuscular Hemoglobin 29.6 pg Mean Corpuscular Hemoglobin Concent 32.6 g/dl Platelet Count 159 K/uL Mean Platelet Volume 11.3 fL Neutrophils (%) (Auto) 88.4 % Lymphocytes (%) (Auto) 5.0 % Monocytes (%) (Auto) 5.9 % Eosinophils (%) (Auto) 0.2 % Basophils (%) (Auto) 0.1 % Neutrophils # (Auto) 16.70 K/uL Lymphocytes # (Auto) 0.95 K/uL Monocytes # (Auto) 1.11 K/uL Eosinophils # (Auto) 0.03 K/uL Basophils # (Auto) 0.01 K/uL RDW Standard Deviation 50.6 fL RDW Coefficient of Variation 15.2 % Immature Granulocyte % (Auto) 0.4 % Immature Granulocyte # (Auto) 0.07 K/uL Sodium Level 151 mmol/L Potassium Level 3.4 mmol/L Chloride Level 108 mmol/L Carbon Dioxide Level 33 mmol/L Anion Gap 10.0 mmol/L Blood Urea Nitrogen 60 mg/dl Creatinine 2.90 mg/dl Est Creatinine Clear Calc Drug Dose 24.4 ml/min Estimated GFR () 23.0 Estimated GFR (Non- 19.8 BUN/Creatinine Ratio 20.6 Random Glucose 155 mg/dl Lactic Acid Level 1.3 mmol/L Calcium Level 7.4 mg/dl Total Bilirubin 2.2 mg/dl Aspartate Amino Transf (AST/SGOT) 46 U/L Alanine Aminotransferase (ALT/SGPT) 40 U/L Alkaline Phosphatase 122 U/L Total Protein 5.3 gm/dl Albumin 1.7 gm/dl Globulin 3.6 gm/dl Albumin/Globulin Ratio 0.5 Random Vancomycin Level 18.2 mcg/ml Impression Patient is a 76 year old male with stage IV colon CA who presented for AMS, found to be septic. GI is consulted for ascites, large amount of fluid drained from venting G-Tube after patient was repositioned in bed. Pt reports he is in no pain. Family reports his abdomen is much less distended. Pt and family would like to limit any interventions unless pt is in pain or unless they would offer additional comfort. Plan Continue ABX coverage Follow lactic acid Continue current medication regimen Frequent positional changes to aid in venting g-tube drainage May do a diagnostic paracentesis if pt reports abdominal pain or worsening distention GI to follow. Please call with any questions I have seen, examined and agree with the plan as outlined by JOSH Harper as above. -exam reveals soft abd -G-tube has been vented and patient is more comfortable. -Paracentesis for comfort -Agree with comfort measures
--- NOTE | 2016-11-02 09:38 | Medical Consult ---
Consultation Date of Consultation: Nov 02, 2016. Attending Physician: Glen Garay MD Reason for Consultation: Sepsis History of Present Illness 76-year-old male with recent admission for gastric outlet obstruction, found to have evidence of metastatic adenocarcinoma, likely from colon primary, who is now admitted with 1 day history of acute change in mental status. Apparently patient had been complaining of some abdominal pain. Came to the emergency department where chest x-ray showed evidence of possible pneumoperitoneum, although follow-up chest x-ray not so convincing. Patient has been started empirically on IV vancomycin and Zosyn. Patient currently awaiting palliative care consultation regarding further management. GI consult has manipulated abdominal to with improvement. Past Medical/Surgical History Medical Problems: (1) Acute kidney injury Status: Acute (2) Ascites Status: Acute (3) COPD (chronic obstructive pulmonary disease) Status: Chronic (4) Dehydration Status: Acute (5) Gastric outlet obstruction Status: Acute (6) Metastasis from colon cancer Status: Acute (7) Nausea & vomiting Status: Acute (8) Pneumoperitoneum Status: Acute (9) Pulmonary edema Status: Acute (10) Ventricular tachycardia Status: Acute Medical Problems: (1) Altered mental status (2) CAD (coronary artery disease) (3) Colon cancer (4) Colon cancer (5) COPD (chronic obstructive pulmonary disease) (6) COPD (chronic obstructive pulmonary disease) (7) GERD (gastroesophageal reflux disease) (8) Heart disease (9) HTN (hypertension) Surgical Problems: (1) History of colon resection (2) History of esophagogastroduodenoscopy (EGD) (3) History of partial colectomy (4) S/P CABG x 3 (5) Stented coronary artery Family History FH: heart disease Hypertension Social History Smoking Status: Unknown if Ever Smoked Marital Status: , in relationship Occupation Status: retired Allergies Coded Allergies: Atorvastatin (Unverified Allergy, Unknown, UNKNOWN, 11/01/16) Levofloxacin (Unverified Allergy, Unknown, UNKNOWN, 11/01/16) Simvastatin (Unverified Allergy, Unknown, UNKNOWN, 11/01/16) Current Inpatient Medications Current Inpatient Medications Medications (Trade) Dose Ordered Sig/Kristine Route Start Time Stop Time Status Last Admin Dose Admin Acetaminophen (Tylenol Tab) 650 mg Q4H PRN PO 11/01/16 13:30 12/01/16 13:29 Vancomycin HCl (Consult) 1 ea UD PRN N/A 11/01/16 13:30 12/01/16 13:29 Piperacillin Sod/ Tazobactam Sod 1 ea 1 ea UD PRN N/A 11/01/16 13:30 12/01/16 13:29 Piperacillin Sod/ Tazobactam Sod 3.375 gm/Dextrose 115 ml @ 28.75 mls/ hr Q8H IV 11/01/16 16:00 11/15/16 15:59 11/02/16 08:11 28.75 MLS/HR Famotidine/ Dextrose (Pepcid IV Inj/ D5 100ml) 102 ml @ 200 mls/hr Q12H IV 11/01/16 18:00 12/01/16 17:59 11/02/16 05:40 200 MLS/HR Heparin Sodium (Porcine) 5000 unit 5,000 unit Q12 SQ 11/01/16 21:00 12/01/16 20:59 11/02/16 08:15 5,000 UNIT Sodium Chloride (Nss 1000ml) 1,000 ml @ 75 mls/hr [id number] IV 11/01/16 18:00 12/01/16 17:59 11/02/16 05:51 75 MLS/HR Morphine Sulfate (MoRPHine SULFATE INJ) 1 mg Q4 PRN IV 11/02/16 02:15 11/16/16 02:14 Morphine Sulfate (MoRPHine SULFATE INJ) 2 mg Q4 PRN IV 11/02/16 02:15 11/16/16 02:14 11/02/16 02:13 2 MG Review of Systems Not obtainable because of patient's mental status Physical Exam Date Time Temp Pulse Resp B/P Pulse Ox O2 Delivery O2 Flow Rate FiO2 11/02/16 08:08 83 21 89/49 98 Non-Rebreather 13.0 11/02/16 04:00 Non-Rebreather 10.0 11/02/16 03:36 37.1 86 18 96/53 98 High Flow Oxygen 10.0 11/02/16 00:00 Non-Rebreather 10.0 11/01/16 23:18 37.1 85 21 95/53 99 High Flow Oxygen 10.0 11/01/16 20:00 Non-Rebreather 10.0 11/01/16 18:55 36.6 88 16 88/49 96 Nasal Cannula 10.0 11/01/16 16:12 97 Non-Rebreather 10.0 11/01/16 14:49 37.0 90 15 79/51 97 Non-Rebreather 11/01/16 13:08 36.8 122 26 81/38 95 Non-Rebreather 15.0 11/01/16 10:54 121 100/63 95 Non-Rebreather 11/01/16 10:41 112 28 98/64 98 Non-Rebreather 11/01/16 10:37 121 85/58 96 11/01/16 10:30 106/69 11/01/16 10:26 101 28 90/69 97 Partial Rebreather 11/01/16 10:21 98 24 92/56 98 11/01/16 10:11 121 24 86/54 97 11/01/16 10:01 101 32 89/56 97 Non-Rebreather 11/01/16 09:40 106 110/73 98 11/01/16 09:35 97 97/75 11/01/16 09:31 116 90/34 96 General Appearance: no apparent distress, + pertinent finding (chronically ill- appearing) Head: normocephalic, atraumatic Eyes: normal inspection, sclerae normal ENT: normal ENT inspection, pharynx normal Neck: supple, no adenopathy, trachea midline Respiratory/Chest: chest non-tender, lungs clear, normal breath sounds, no respiratory distress Cardiovascular: regular rate, rhythm, no gallop, no murmur Abdomen/GI: no organomegaly, + tenderness, + abnormal bowel sounds, + distended , + pertinent finding (RUQ tube) Back: normal inspection, no CVA tenderness Extremities/Musculoskelatal: no calf tenderness, non-tender Neurologic/Psych: alert, + disoriented Lymphatic: no adenopathy Laboratory Results Date/Time Source Procedure Growth Status 11/01/16 09:55 Blood Blood Culture Pending Received 11/01/16 09:45 Blood Blood Culture Pending Received 11/01/16 14:15 Urine,Catheterized Urine Culture Pending Received Last 24 Hours Test 11/01/16 14:15 11/01/16 14:24 11/01/16 14:29 11/01/16 16:45 Urine Color DK YELLOW Urine Appearance CLOUDY Urine pH 5.0 Urine Specific [place] 1.024 Urine Protein 1+ Urine Glucose (UA) NEG Urine Ketones TRACE Urine Occult Blood NEG Urine Nitrite POS Urine Bilirubin NEG Urine Urobilinogen NEG Urine Leukocyte Esterase TRACE Urine WBC (Auto) 1-5 /hpf Urine RBC (Auto) 0-4 /hpf Urine Hyaline Casts (Auto) 5-10 /lpf Urine Epithelial Cells (Auto) >30 /lpf Urine Bacteria (Auto) NEG Urine Renal Epithelial Cells 0-5 /lpf Urine Pathogenic Casts /lpf Lactic Acid Level 2.4 mmol/L Troponin I 5.760 ng/ml Gastric Fluid pH 2 Gastric Fluid Occult Blood POS Test 11/01/16 22:10 11/02/16 06:03 Troponin I 4.680 ng/ml 4.130 ng/ml White Blood Count 18.87 K/uL Red Blood Count 4.50 M/uL Hemoglobin 13.3 g/dL Hematocrit 40.8 % Mean Corpuscular Volume 90.7 fL Mean Corpuscular Hemoglobin 29.6 pg Mean Corpuscular Hemoglobin Concent 32.6 g/dl Platelet Count 159 K/uL Mean Platelet Volume 11.3 fL Neutrophils (%) (Auto) 88.4 % Lymphocytes (%) (Auto) 5.0 % Monocytes (%) (Auto) 5.9 % Eosinophils (%) (Auto) 0.2 % Basophils (%) (Auto) 0.1 % Neutrophils # (Auto) 16.70 K/uL Lymphocytes # (Auto) 0.95 K/uL Monocytes # (Auto) 1.11 K/uL Eosinophils # (Auto) 0.03 K/uL Basophils # (Auto) 0.01 K/uL RDW Standard Deviation 50.6 fL RDW Coefficient of Variation 15.2 % Immature Granulocyte % (Auto) 0.4 % Immature Granulocyte # (Auto) 0.07 K/uL Sodium Level 151 mmol/L Potassium Level 3.4 mmol/L Chloride Level 108 mmol/L Carbon Dioxide Level 33 mmol/L Anion Gap 10.0 mmol/L Blood Urea Nitrogen 60 mg/dl Creatinine 2.90 mg/dl Est Creatinine Clear Calc Drug Dose 24.4 ml/min Estimated GFR () 23.0 Estimated GFR (Non- 19.8 BUN/Creatinine Ratio 20.6 Random Glucose 155 mg/dl Lactic Acid Level 1.3 mmol/L Calcium Level 7.4 mg/dl Total Bilirubin 2.2 mg/dl Aspartate Amino Transf (AST/SGOT) 46 U/L Alanine Aminotransferase (ALT/SGPT) 40 U/L Alkaline Phosphatase 122 U/L Total Protein 5.3 gm/dl Albumin 1.7 gm/dl Globulin 3.6 gm/dl Albumin/Globulin Ratio 0.5 Random Vancomycin Level 18.2 mcg/ml CLINICAL HISTORY: Follow-up pneumoperitoneum. FINDINGS: An AP, portable, upright chest radiograph is compared to study dated 11/01/2016. The examination is degraded by portable technique and patient rotation. The patient is status post midline sternotomy. The heart is enlarged and there is atherosclerotic calcification of the thoracic aorta. The pulmonary vasculature is noncongested. There are bibasilar airspace opacities. Small pleural effusions are suspected. No pneumothorax is seen. The skeletal structures are osteopenic. The bony thorax is grossly intact. A pigtail catheter is partially imaged and left upper quadrant. There is no clear evidence of pneumoperitoneum. IMPRESSION: 1. Cardiomegaly without radiographic evidence of congestive failure. 2. Bibasilar airspace opacities likely represent atelectasis. Small pleural effusions are suspected. Clinical correlation will be required. 3. There is no clear radiographic evidence of pneumoperitoneum. If there is strong clinical concern for pneumoperitoneum a decubitus abdominal radiograph should be performed. Assessment & Plan 76 yo male with metastatic colon cancer s/p recent colectomy now admitted with sepsis and encephalopathy. Most likely source would be intra-abdominal infection such as anastomotic leak, peritonitis and current Rx with Zosyn and vancomycin appropriate. Would obtain abdominal CT if possible to better evaluate. Will discuss with all involved.
--- NOTE | 2016-11-02 10:31 | Pharmacy Progress Note ---
Pharmacy Antibiotic Prog Note Date of Service Nov 02, 2016. Subjective The patient is currently receiving Vanco/Zosyn Objective Height (Feet): 5 Height (Inches): 8.00 Weight (Kilograms): 103.200 Levels: Item Value Date Time Random Vancomycin Level 18.2 mcg/ml 11/02/16 06 Lab Results (24hrs): Item Value Date Time Creatinine 2.90 mg/dl H # 11/02/16 06 Est Creatinine Clear Calc Drug Dose 24.4 ml/min 11/02/16 06 Laboratory Tests Test 11/02/16 06:03 BUN/Creatinine Ratio 20.6 Blood Urea Nitrogen 60 mg/dl Creatinine 2.90 mg/dl White Blood Count 18.87 K/uL Red Blood Count 4.50 M/uL Hemoglobin 13.3 g/dL Hematocrit 40.8 % Mean Corpuscular Volume 90.7 fL Mean Corpuscular Hemoglobin 29.6 pg Mean Corpuscular Hemoglobin Concent 32.6 g/dl Platelet Count 159 K/uL Mean Platelet Volume 11.3 fL Neutrophils (%) (Auto) 88.4 % Lymphocytes (%) (Auto) 5.0 % Monocytes (%) (Auto) 5.9 % Eosinophils (%) (Auto) 0.2 % Basophils (%) (Auto) 0.1 % Neutrophils # (Auto) 16.70 K/uL Lymphocytes # (Auto) 0.95 K/uL Monocytes # (Auto) 1.11 K/uL Eosinophils # (Auto) 0.03 K/uL Basophils # (Auto) 0.01 K/uL Micro Results: Item Value Date Time Urine Culture Received 11/01/16 1415 Urine,Catheterized Pending Blood Culture Received 11/01/16 0955 Blood Pending Blood Culture Received 11/01/16 0945 Blood Pending Assessment & Plan Pt is a 76yo M being empirically treated with Vanc/Zosyn. Pt has a h/o of metastatic colon CA. He is experiencing BRISA and therefore receiving Vancomycin PRN. This mornings lvl came back therapeutic at 18.2mcg/mL. To ensure Mr. Leonardo remains therapeutic I have ordered Vancomycin 600mg (6mg/kg) x1 at 1200 on 11/02. Random lvl to be drawn with AM labs. Zosyn dosed 3.375g q8, appropriate for clinical status and eCrCl >20cc/min Thank you for consulting the pharmacy kinetic team and including us in the care of Mr. Leonardo. Pharmacy will continue to follow and will adjust dose/frequency as necessary. Thank you
[2016-11-02] MEDS ORDERED: VANCOMYCIN INJ 600 MG in SODIUM CHLORIDE 0.9% 250ML 250 ML IV ONE (12:00)
--- NOTE | 2016-11-02 12:16 | Clinical Documentation Query ---
Dr. [facility] : CLINICAL DOCUMENTATION QUERIES QUERY 1 OF 2 Patient is a 76 year old male admitted for evaluation and treatment of sepsis. Noted to have a tender abdomen, fever, tachycardia, tachypnea, altered mental status, and lactic acidosis. He was started on empiric Vancomycin and Zosyn. ID was consulted. As appropriate, consider clarification as suggested below. Thank you. In your clinical opinion is this patient being managed for: (X ) Metabolic encephalopathy due to (likely/suspected) perforated bowel and/or peritonitis. ( ) Other explanation of clinical findings (Please Explain) ( ) Unable to determine (Please Define) ( ) Need to Discuss ( ) Not Agree The medical record reflects the following clinical findings, treatment, and risk factors. Clinical Indicators: As above Treatment:He was started on empiric Vancomycin and Zosyn. ID was consulted Risk Factors: Recent colectomy, age, infection QUERY 2 OF 2 Admission BUN and creatinine were 47 mg/dl and 2.40 mg/dl. There is no documented history of CKD. He is recieving IV NSS at 75 ml/hr and being monitored with serial chemistries. Please clarify as clinically appropriate. Thank you. In your clinical opinion is this patient being managed for: (X ) Acute kidney failure ( ) Other explanation of clinical findings (Please Explain) ( ) Unable to determine (Please Define) ( ) Need to Discuss ( ) Not Agree The medical record reflects the following clinical findings, treatment, and risk factors. Clinical Indicators: As above Treatment:He is recieving IV NSS at 75 ml/hr and being monitored with serial chemistries Risk Factors: Age, infection/severe sepsis Please clarify and document your clinical opinion in the progress notes and discharge summary. Terms such as "probable", "suspected", "likely", "questionable", "possible", or "still to be ruled out" are acceptable. IF IN AGREEMENT, YOU MUST DOCUMENT ABOVE DIAGNOSTIC STATEMENT IN DAILY PROGRESS NOTES AND DISCHARGE SUMMARY. This document is not part of the patient's record. Thank You, Edgardo Mckoy, RN [phone]
[2016-11-02] MEDS ORDERED: POTASSIUM CHLR 10 MEQ / WTR 10 MEQ in PREMIXED WATER 100 ML IV ONE (12:55)
--- NOTE | 2016-11-02 13:04 | Progress Note ---
Internal Med Progress Note Date of Service: Nov 02, 2016. Provider Documentation: SUBJECTIVE: Patient is more awake today but not very well oriented. Answers simple questions by nodding head or just saying Yes. Intermittent respiratory distress. No other new change or event. Venting G tube has been draining. OBJECTIVE: Vital Signs-as noted below Examination: GENERAL: Patient is awake & follows simple commands. Patient is poorly nourished and is sick looking. SKIN: No erythema, pallor, cyanosis or rash HEENT: Normal head, pupils equal, reactive to light and accommodation. Ears normal. Oral cavity is dry looking and posterior pharynx appear normal. Neck: Without adenopathy, Midline trachea, no neck vein distention. LUNGS: B/L Moderate air entry, Decreased BS at lung bases B/L. HEART: Irregular regular rhythm. No murmurs. No gallops. No rubs ABDOMEN: Markedly distended, RUQ tube, generalized tenderness on palpation EXTREMITIES: No signs of trauma. No pedal or pretibial edema. No calf or thigh tenderness. NEUROLOGIC: Cranial nerves II-XII within normal limits. No gross motor sensory function deficits. Lab data as noted below. ASSESSMENT & PLAN: Sepsis: Came in with Low BP, altered mentation, leukocytosis, Elevate Lactic acid. Has tender abdomen. -Septic work up done -Continue empiric Vancomycin (Day # 2) & Zosyn (Day # 2) -Lactic acid trend shows 3.6 --> 2.4 --> 1.3. -Reviewed ID consult. Thanks for input. Metabolic Encephalopathy: Caused by Sepsis, BRISA, poor intake and underlying malignancy. Some improvement. -Continue monitoring. Hypernatremia: Due to volume depletion. -Monitor Sodium level BRISA on CKD Stage III: Baseline Creatinine is around 1.8. Likely due to poor intake, sepsis. -Gentle hydration -Monitor GFR -Avoid any nephrotoxin Elevated Troponin: Remains hypotensive. Likely caused by all the stressful factors which are ongoing. -Serial Troponin shows 5.76 --> 4.68 --> 4.13 -Started ASA 81 mg daily -Ordered Echocardiogram -Monitoring electrolytes closely,. Recent Gastric Outlet Obstruction: CT abdomen/pelvis showed gastric dilatation and likely gastric outlet obstruction in September 2016. Gastric pathology - no cancer noted, severe gastritis seen. 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 Hypokalemia - Replaced. Check in AM labs. Diabetes Type II: Monitoring BS and continue insulin sliding scale DVT Prophylaxis: Sq heparin Code Status: Discussed with family at bedside and patient is DNR as per his wishes. Requested palliative care consult. Vital Signs: Date Time Temp Pulse Resp B/P Pulse Ox O2 Delivery O2 Flow Rate FiO2 11/02/16 12:49 90 22 96 Non-Rebreather 8.0 11/02/16 12:01 97 Non-Rebreather 10.0 11/02/16 12:00 36.7 86 24 99/54 98 Non-Rebreather 9.0 11/02/16 08:08 83 21 89/49 98 Non-Rebreather 13.0 11/02/16 08:01 97 Non-Rebreather 10.0 11/02/16 04:00 Non-Rebreather 10.0 11/02/16 03:36 37.1 86 18 96/53 98 High Flow Oxygen 10.0 11/02/16 00:00 Non-Rebreather 10.0 11/01/16 23:18 37.1 85 21 95/53 99 High Flow Oxygen 10.0 11/01/16 20:00 Non-Rebreather 10.0 11/01/16 18:55 36.6 88 16 88/49 96 Nasal Cannula 10.0 11/01/16 16:12 97 Non-Rebreather 10.0 11/01/16 14:49 37.0 90 15 79/51 97 Non-Rebreather Lab Results: Results Past 24 Hours Test 11/01/16 14:15 11/01/16 14:24 11/01/16 14:29 11/01/16 16:45 Range/Units Urine Color DK YELLOW Urine Appearance CLOUDY CLEAR Urine pH 5.0 4.5-7.5 Urine Specific [place] 1.024 1.000-1.030 Urine Protein 1+ NEG Urine Glucose (UA) NEG NEG Urine Ketones TRACE NEG Urine Occult Blood NEG NEG Urine Nitrite POS NEG Urine Bilirubin NEG NEG Urine Urobilinogen NEG NEG Urine Leukocyte Esterase TRACE NEG Urine WBC (Auto) 1-5 0-5 /hpf Urine RBC (Auto) 0-4 0-4 /hpf Urine Hyaline Casts (Auto) 5-10 0-5 /lpf Urine Epithelial Cells (Auto) >30 0-5 /lpf Urine Bacteria (Auto) NEG NEG Urine Renal Epithelial Cells 0-5 0-5 /lpf Urine Pathogenic Casts 0 /lpf Lactic Acid Level 2.4 0.4-2.0 mmol/L Troponin I 5.760 0-0.045 ng/ml Gastric Fluid pH 2 Gastric Fluid Occult Blood POS NEG Test 11/01/16 22:10 11/02/16 06:03 Range/Units Troponin I 4.680 4.130 0-0.045 ng/ml White Blood Count 18.87 4.8-10.8 K/uL Red Blood Count 4.50 4.7-6.1 M/uL Hemoglobin 13.3 14.0-18.0 g/dL Hematocrit 40.8 42-52 % Mean Corpuscular Volume 90.7 80-100 fL Mean Corpuscular Hemoglobin 29.6 25-34 pg Mean Corpuscular Hemoglobin Concent 32.6 32-36 g/dl Platelet Count 159 130-400 K/uL Mean Platelet Volume 11.3 7.4-10.4 fL Neutrophils (%) (Auto) 88.4 % Lymphocytes (%) (Auto) 5.0 % Monocytes (%) (Auto) 5.9 % Eosinophils (%) (Auto) 0.2 % Basophils (%) (Auto) 0.1 % Neutrophils # (Auto) 16.70 1.4-6.5 K/uL Lymphocytes # (Auto) 0.95 1.2-3.4 K/uL Monocytes # (Auto) 1.11 0.11-0.59 K/uL Eosinophils # (Auto) 0.03 0-0.5 K/uL Basophils # (Auto) 0.01 0-0.2 K/uL RDW Standard Deviation 50.6 36.4-46.3 fL RDW Coefficient of Variation 15.2 11.5-14.5 % Immature Granulocyte % (Auto) 0.4 % Immature Granulocyte # (Auto) 0.07 0.00-0.02 K/uL Sodium Level 151 136-145 mmol/L Potassium Level 3.4 3.5-5.1 mmol/L Chloride Level 108 98-107 mmol/L Carbon Dioxide Level 33 21-32 mmol/L Anion Gap 10.0 3-11 mmol/L Blood Urea Nitrogen 60 7-18 mg/dl Creatinine 2.90 0.60-1.40 mg/dl Est Creatinine Clear Calc Drug Dose 24.4 ml/min Estimated GFR () 23.0 Estimated GFR (Non- 19.8 BUN/Creatinine Ratio 20.6 10-20 Random Glucose 155 70-99 mg/dl Lactic Acid Level 1.3 0.4-2.0 mmol/L Calcium Level 7.4 8.5-10.1 mg/dl Total Bilirubin 2.2 0.2-1 mg/dl Aspartate Amino Transf (AST/SGOT) 46 15-37 U/L Alanine Aminotransferase (ALT/SGPT) 40 12-78 U/L Alkaline Phosphatase 122 45-117 U/L Total Protein 5.3 6.4-8.2 gm/dl Albumin 1.7 3.4-5.0 gm/dl Globulin 3.6 2.5-4.0 gm/dl Albumin/Globulin Ratio 0.5 0.9-2 Random Vancomycin Level 18.2 mcg/ml Microbiology Results 11/01/16 Urine Culture - Preliminary, Resulted NO GROWTH - LESS THAN 1,000 COLONIES/...
[2016-11-02] MEDS ORDERED: ASPIRIN 81 MG ECTAB PO ONE (13:30)
[2016-11-02] MEDS: POTASSIUM CHLR 10 MEQ / WTR 10 MEQ in PREMIXED WATER 100 ML IV SCH ×2 (13:45→15:15)
[2016-11-02] MEDS: LEVALBUTEROL 1.25MG/3ML NEB INH PRN ×2 (17:48→22:35)
--- NOTE | 2016-11-02 18:02 | ECHOCARDIOGRAM REPORT ---
*NOTICE TO RECEIVING LIBERTARIAN AGENCY This information is strictly Confidential and protected under [place] law. [place] law prohibits you from making any further disclosure of this information unless further disclosure is expressly permitted by the written consent of the person to whom it pertains or is authorized by law. A general authorization for the release of medical or other information is not sufficient for this purpose. Hospital accepts no responsibility if the information is made available to any other person, INCLUDING THE PATIENT. Interpretation Summary * Name: AYAN NICOLE Study Date: 11/02/2016 02:30 PM BP: 99/54 mmHg * Patient Location: C.2E\S\E204\S\1 HR: 90 * : 1940 (M/d/yyyy) Gender: Male Height: 68 in * Age: 76 yrs Ethnicity: CA Weight: 227 lb * Ordering Physician: Glen Garay * Referring Physician: Self, Referred * Performed By: Faith Lepe RCS * * Reason For Study: AMI * BSA: 2.2 m2 * -- Conclusions -- * The study was technically difficult. * The study was technically limited. * The left ventricle is normal in size. * There is moderate global hypokinesis of the left ventricle. * There is severe inferior wall hypokinesis. * There is severe posterior wall hypokinesis. * Mild to moderate valvular aortic stenosis. * Ejection Fraction = 35-40%. * There is no pericardial effusion. Procedure Details * A complete two-dimensional transthoracic echocardiogram was performed (2D, M-mode, Doppler and color flow Doppler). * The study was technically difficult. * The study was technically limited. * Definity was offered to improve images but was refused. Left Ventricle * The left ventricle is normal in size. * There is mild concentric left ventricular hypertrophy. * Ejection Fraction = 35-40%. * There is moderate global hypokinesis of the left ventricle. * There is severe inferior wall hypokinesis. * There is severe posterior wall hypokinesis. Mitral Valve * The mitral valve is not well visualized. * There is mild mitral annular calcification. * There is no mitral valve stenosis. * Significant mitral regurgitation is absent. Tricuspid Valve * The tricuspid valve is not well visualized. Aortic Valve * The aortic valve is not well visualized. * Mild to moderate valvular aortic stenosis. Pulmonic Valve * The pulmonic valve is not well visualized. Great Vessels * The aortic root is normal size. Pericardium/Pleural * There is no pericardial effusion. Left Ventricular Diastolic Function * Grade I diastolic dysfunction, (abnormal relaxation pattern). MMode 2D Measurements and Calculations IVSd 1.3 cm IVSs 1.3 cm LVIDd 4.8 cm LVIDs 3.9 cm LVPWd 1.1 cm LVPWs 1.1 cm IVS/LVPW 1.2 FS 18.7 % EDV(Teich) 108.0 ml ESV(Teich) 66.2 ml EF(Teich) 38.7 % EDV(cubed) 111.2 ml ESV(cubed) 59.7 ml EF(cubed) 46.3 % % IVS thick -4.36 % % LVPW thick 0.69 % LV mass(C)d 219.8 grams LV mass(C)dI 101.9 grams/m\S\2 LV mass(C)s 154.9 grams LV mass(C)sI 71.8 grams/m\S\2 CO(Teich) 3.7 l/min CI(Teich) 1.7 l/min/m\S\2 SV(Teich) 41.7 ml SI(Teich) 19.3 ml/m\S\2 CO(cubed) 4.6 l/min CI(cubed) 2.1 l/min/m\S\2 SV(cubed) 51.5 ml SI(cubed) 23.9 ml/m\S\2 Ao root diam 2.7 cm Ao root area 5.6 cm\S\2 LA dimension 5.8 cm LA/Ao 2.2 LVAd ap4 30.7 cm\S\2 LVLd ap4 8.1 cm EDV(MOD-sp4) 97.0 ml LVAs ap4 23.7 cm\S\2 LVLs ap4 7.8 cm ESV(MOD-sp4) 60.0 ml EF(MOD-sp4) 38.1 % LVAd ap2 36.5 cm\S\2 LVLd ap2 8.6 cm EDV(MOD-sp2) 133.0 ml LVAs ap2 28.1 cm\S\2 LVLs ap2 7.9 cm ESV(MOD-sp2) 86.0 ml EF(MOD-sp2) 35.3 % CO(MOD-sp4) 3.3 l/min CI(MOD-sp4) 1.5 l/min/m\S\2 SV(MOD-sp4) 37.0 ml SI(MOD-sp4) 17.2 ml/m\S\2 CO(MOD-sp2) 4.2 l/min CI(MOD-sp2) 1.9 l/min/m\S\2 SV(MOD-sp2) 47.0 ml SI(MOD-sp2) 21.8 ml/m\S\2 Doppler Measurements and Calculations MV E max ceferino 30.2 cm/sec MV A max ceferino 56.1 cm/sec MV E/A 0.54 MV P1/2t max ceferino 79.6 cm/sec MV P1/2t 57.4 msec MVA(P1/2t) 3.8 cm\S\2 MV dec slope 406.2 cm/sec\S\2 MV dec time 0.13 sec Ao V2 max 226.9 cm/sec Ao max PG 20.6 mmHg Ao max PG (full) 15.2 mmHg LV V1 max PG 5.4 mmHg LV V1 max 116.0 cm/sec PA V2 max 90.1 cm/sec PA max PG 3.2 mmHg
[2016-11-02] MEDS: METOPROLOL TARTRATE 1 MG/ML VIAL IV. SCH (20:53)
[2016-11-02] MEDS ORDERED: METOPROLOL TARTRATE 25 MG TAB PO SCH (21:00)
[2016-11-03] MEDS: PIPERACILL/TAZOBAC IV 3.375 GM in DEXTROSE 5% 100ML IV SCH (00:45)
[2016-11-03] MEDS: METOPROLOL TARTRATE 1 MG/ML VIAL IV. SCH ×2 (00:46→06:04)
[2016-11-03 02:22] VITALS: PULSE 120; O2SAT 91
[2016-11-03] MEDS: LEVALBUTEROL 1.25MG/3ML NEB INH PRN (02:22)
[2016-11-03] MEDS: MoRPHine SULFATE 2 MG/ML CARP IV PRN (03:09)
[2016-11-03 03:47] VITALS: BP 100/65; PULSE 128; TEMP 37.2; O2SAT 94
[2016-11-03] MEDS ORDERED: SCOPOLAMINE 1.5 MG TDSY TD SCH (04:30)
[2016-11-03] MEDS ORDERED: NURSING VERBAL MED ORDER ONE (04:30)
[2016-11-03 05:59] LABS: HEMATOCRIT 42.1 % (42-52); MEAN CELL VOLUME 89.6 fL (80-100); MEAN CORPUSCULAR HEMOGLOBIN 28.3 pg (25-34); MEAN CORPUSCULAR HGB CONC 31.6 g/dl (32-36); MEAN PLATELET VOLUME 11.5 fL (7.4-10.4); PLATELET COUNT 174 K/uL (130-400); WHITE BLOOD COUNT 18.19 K/uL (4.8-10.8)
[2016-11-03 06:04] VITALS: BP 100/65; PULSE 128
[2016-11-03] MEDS: FAMOTIDINE IV INJ 20 MG in DEXTROSE 5% 100ML 100 ML IV SCH (06:04)
[2016-11-03 06:19] LABS: CALCIUM 7.7 mg/dl (8.5-10.1); CREATININE 2.4 mg/dl (0.60-1.40); MAGNESIUM 3.5 mg/dl (1.8-2.4); POTASSIUM 3.2 mmol/L (3.5-5.1)
--- NOTE | 2016-11-03 06:22 | Progress Note ---
Progress Note Date of Service Nov 03, 2016. Progress Note PET SITTING ATTENDING NOTE PRONOUNCEMENT : Called by nursing -pt has became unresponsive with agonal breathing Ceased breathing at 6: 25 PM Monitor shows initial Torsades followed by fine to coarse ventricular fibrillation pt evaluated at bedside unresponsive, pupils bilateral dilated fixed, non reactive to light no breathing movement no heart sound , or respiratory sound on auscultation pt been DNR /DNI Metastatic colon CA with gastric out let obstruction , presented with sepsis , renal failure pt at 6: 25 pm family members were present at bedside
[2016-11-03 06:32] LABS: BASO % 0.1 %; BASO ABS # 0.02 K/uL (0-0.2); COMPLETE YES; EOS % 0.2 %; IG% 0.8 %; LYMPH % 4.3 %; LYMPH ABS # 0.79 K/uL (1.2-3.4); MONO % 5.5 %; NEUT % 89.1 %
--- NOTE | 2016-11-03 07:06 | CARDIOLOGY CONSULTATION ---
DATE OF CONSULTATION: 11/02/2016 INDICATIONS: Possible sepsis, tachycardia. PRIMARY CARE PHYSICIAN: Mildred Quiroga MD REFERRING PHYSICIAN: Glen Garay MD HISTORY OF PRESENT ILLNESS: The patient is a complex 76-year-old male with recent hospitalization at [facility] and subsequent transfer to [facility], diagnosis is made of acute bowel obstruction secondary to abdominal carcinomatosis. The patient's past medical history is notable for known atherosclerotic coronary artery disease with prior coronary bypass grafting on 2 separate occasions in 1982 and 1996 with severe multivessel coronary disease with last diagnostic cardiac catheterization greater than 10 years demonstrating occlusion of all vein grafts with patent JOSEPH graft to LAD, without surgical interventional sites available. His underlying medical problems include ischemic cardiomyopathy with moderate left ventricular dysfunction, past, paroxysmal atrial fibrillation, history of chronic obstructive lung disease, hypertension, dyslipidemia, suspected obstructive sleep apnea. As noted, patient recently presented with severe abdominal pain and discomfort with bowel obstruction. He was initially evaluated and then transferred to [facility] where he underwent a venting gastrostomy tube for comfort measures. He was discharged with anticipation of hospice care, but was readmitted to [facility] with declining functional capacity, altered mental status and possible sepsis. Since admission, he has received IV fluid resuscitation and antibiotic therapies. He has required high concentrations of oxygen for treatment. Blood pressures have been marginal since admission, heart rate between 80s and 125 depending on clinical course. He is referred now for further evaluation. The patient at the time of examination is in his room with his . He is nonconversant, but has been writing short notes to family members. He denies any specific complaints, though history is unreliable. ALLERGIES: ATORVASTATIN, LEVOTHYROXINE, SIMVASTATIN. MEDICATIONS: Prior to hospitalization were morphine, Zofran and aerosol nebulizers in the past. His medications has included furosemide, eplerenone, clopidogrel, metoprolol 25 mg twice per day, amlodipine 2.5 mg per day as well as oxygen 2 liters nasal cannula at night. PAST SURGICAL HISTORY: Notable for prior colonoscopies and EGD, coronary bypass grafting as described, has had prior remote low anterior resection in 2013. FAMILY HISTORY AND SOCIAL HISTORY: Noncontributory. PHYSICAL EXAMINATION: VITAL SIGNS: Heart rates 100-110, blood pressure is 90/50. NECK: Thick. He is wearing a nonrebreather mask. LUNGS: Reveal coarse crackles and upper airway rhonchi. CARDIOVASCULAR: Irregularly irregular with distant heart sounds. There is no S3 gallop. ABDOMEN: Soft, tender to palpation. EXTREMITIES: Without cyanosis or clubbing. There is 1 to 2+ edema with chronic stasis changes. LABORATORY DATA: White cell count is 18, hemoglobin is 13.3, hematocrit is 40.8. Sodium is 151, potassium is 3.4, chloride is 108, bicarbonate is 33, BUN 60, creatinine is 2.9. EKG on admission demonstrates sinus rhythm with occasional ventricular ectopic beats, right bundle branch block, left anterior fascicular block. Echocardiogram demonstrates diffuse moderate left ventricular dysfunction with focal inferior posterior hypokinesis to akinesis. EF 30% to 35%, aortic valve was poorly visualized but appears calcified with at least mild aortic stenosis. IMPRESSION: A 76-year-old male with a complex history, presents now after hospitalization and venting gastrostomy placed for diffuse abdominal carcinomatosis and bowel obstruction. He is now admitted with hypotension, worsening renal failure, worsening respiratory status, consistent with multifactorial respiratory failure and multiorgan system decline. Troponins are elevated, heart rates are elevated, likely reflecting underlying ischemic heart disease and acute demand ischemia. Heart rate is elevated and has significant ventricular ectopy. Blood pressure limits the degree we will use for treatment given relative hypotension, though we will initiate low dose beta nelsy with metoprolol tartrate at 12.5 mg 3 times per day. Overall, prognosis is extremely limited. Family appears predominantly interested in comfort measures as appropriate. Appears by examination and laboratory studies, he could warrant further volume resuscitation.
[2016-11-03] MEDS ORDERED: CHECK SCOPOLAMINE PATCH PLACEMENT SCH (08:00)
--- NOTE | 2016-11-03 08:49 | Discharge Summary ---
Discharge Summary Date of Service Nov 03, 2016. Discharge Summary Admission Date: Nov 01, 2016 at 10:01 Discharge Date: Nov 03, 2016 Discharge Disposition: Principal Diagnosis: PT CAUSE OF METASTATIC COLON CA SEPSIS ACUTE RENAL FAILURE WITH SEVERE ELECTROLYTE DERANGEMENTS CARDIAC ARRHYTHMIA -V FIB LEADING TO CARDIOPULMONARY ARREST Consultations: ID GASTROENTEROLOGY CARDIOLOGY PALLIATIVE CARE Admission Information HPI (per Admitting provider): 76 year old male with known past medical history of Stage IV Colon cancer s/p partial colectomy, CAD s/p CABG, COPD, GERD, HTN presents to the Emergency Room via ALS after being found unresponsive by his family prior to arrival. Per nursing staff, the family found the patient in his chair, unresponsive and nonverbal. The patient has a history of colon cancer and complains of abdominal discomfort. Per patient's family, the patient started to complain of abdominal pain in the middle of the night. The patient's HPI is limited due to AMS. Was admitted to [facility] in september. Physical Exam (per Admitting): GENERAL: Patient is confused and does not follows command. Patient appear toxic. Patient is poorly nourished and is sick looking. SKIN: No erythema, pallor, cyanosis or rash HEENT: Normal head, pupils equal, reactive to light and accommodation. Ears normal. Oral cavity is dry looking and posterior pharynx appear normal. Neck: Without adenopathy, Midline trachea, no neck vein distention. LUNGS: B/L Moderate air entry, Decreased BS at lung bases B/L. HEART: Irregular regular rhythm. No murmurs. No gallops. No rubs ABDOMEN: Markedly distended, RUQ tube, generalized tenderness on palpation EXTREMITIES: No signs of trauma. No pedal or pretibial edema. No calf or thigh tenderness. NEUROLOGIC: Cranial nerves II-XII within normal limits. No gross motor sensory function deficits. Hospital Course [employer] ATTENDING NOTE PRONOUNCEMENT : 76 yo male with metastatic colon cancer s/p recent colectomy now admitted with sepsis and encephalopathy. Most likely source would be intra-abdominal infection such as anastomotic leak, associated with severe electrolyte imbalance , BRISA , very poor prognosis Called by nursing -pt has became unresponsive with agonal breathing Ceased breathing at 6: 25 PM Monitor shows initial Torsades followed by fine to coarse ventricular fibrillation pt evaluated at bedside unresponsive, pupils bilateral dilated fixed, non reactive to light no breathing movement no heart sound , or respiratory sound on auscultation pt been DNR /DNI Metastatic colon CA with gastric out let obstruction , presented with sepsis , renal failure pt at 6: 25 pm family members were present at bedside Discharge Instructions PATIENT
[2016-11-03] MEDS ORDERED: ASPIRIN 81 MG ECTAB PO SCH (09:00)
--- NOTE | 2016-11-03 09:10 | Palliative Care Progress Note ---
Palliative Care Progress Note Date of Service Nov 03, 2016. Subjective Met yesterday briefly with patient's significant other/POA, Erma, patient's son and [id number]. We had planned to meet today to formally discuss patient's goals of care and advance care planning. Patient this morning at 0615 before consult done.
== END 2016-11-03 09:49 | disposition expired | DRG 871 ==
LOC: ENRESERVDT → ENRESERVTM → EDBD 08:36 → C.EDB 08:40 → C.2E 10:01
PROVIDERS: ADMIT Emergency Medicine; ATTEND Internal Medicine
DX: A41.9 Sepsis, unspecified organism (principal); G93.41 Metabolic encephalopathy; K65.9 Peritonitis, unspecified; N17.9 Acute kidney failure, unspecified; E87.0 Hyperosmolality and hypernatremia; I24.8 Other forms of acute ischemic heart disease; K56.7 Ileus, unspecified; C78.5 Secondary malignant neoplasm of large intestine and rectum; I12.9 Hypertensive chronic kidney disease with stage 1 through stage 4 chronic kidney disease, or unspecified chronic kidney disease; N18.3 Chronic kidney disease, stage 3 (moderate); R65.20 Severe sepsis without septic shock; I25.10 Atherosclerotic heart disease of native coronary artery without angina pectoris; J44.9 Chronic obstructive pulmonary disease, unspecified; K21.9 Gastro-esophageal reflux disease without esophagitis; E11.22 Type 2 diabetes mellitus with diabetic chronic kidney disease; E87.6 Hypokalemia; Z51.5 Encounter for palliative care; Z66 Do not resuscitate; Z95.1 Presence of aortocoronary bypass graft; I48.0 Paroxysmal atrial fibrillation; E78.5 Hyperlipidemia, unspecified; I25.5 Ischemic cardiomyopathy; Z85.038 Personal history of other malignant neoplasm of large intestine; I46.9 Cardiac arrest, cause unspecified; I49.01 Ventricular fibrillation; Z82.49 Family history of ischemic heart disease and other diseases of the circulatory system; K63.89 Other specified diseases of intestine